=== PATIENT | female | born 1940 | race Caucasian/White ===

== ENCOUNTER → 2017-02-19 | Outpatient (CLI) | payer MEDICARE ==
--- NOTE | 2017-02-21 07:37 | MM ---
Reason for exam: screening (asymptomatic). Last mammogram was performed 1 year ago. History: Patient is postmenopausal. Benign excisional biopsy of the left breast, 1990. Benign excisional biopsy of the left breast, 1989. Physical Findings: A clinical breast exam by your physician is recommended on an annual basis and results should be correlated with mammographic findings. MG 3D Screening Mammo W/Cad Bilateral CC and MLO view(s) were taken. Prior study comparison: February 15, 2016, bilateral MG 3d screening mammo w/cad. There are scattered fibroglandular densities. No significant changes when compared with prior studies. ASSESSMENT: Benign, BI-RAD 2 RECOMMENDATION: Routine screening mammogram of both breasts in 1 year.
== END | disposition home or self-care (01) ==
LOC: RADMAMWWP 12:53
PROVIDERS: ATTEND Internal Medicine
DX: Z12.31 Encounter for screening mammogram for malignant neoplasm of breast (principal)
CPT/HCPCS: 77063; G0202

== ENCOUNTER → 2017-05-22 | Outpatient (CLI) | payer MEDICARE ==
--- NOTE | 2017-05-23 08:56 | SLS ---
76-year-old female, comes again in follow up regarding obstructive sleep apnea. I have diagnosed this patient as having severe KILO with an HI of 79 and she was supposed to be on CPAP pressure of 8 cm of water. She apparently quit using her CPAP machine. She has not been using it as the nose pillow that she has was getting loose and was leaking. She has an AirFit P10 nose pillow and she has not used her CPAP for more than six months. She is an elderly 76-year- old female patient and sometimes she is having difficulties in putting the CPAP machine on and off. She has become symptomatic. She is sleepy and she is interested in going back on the treatment. She has not seen the full benefit of the treatment knowing that the patient has not been using it on a daily basis. BP is 114/76, pulse 78, respirations 12, temperature 98.1, saturation 99% on room air. Weight 166, height 5'1". Drain score is 11. BMI is 31.3. GENERAL APPEARANCE: Calm, comfortable. HEENT: Short neck, crowding of the posterior oropharynx. No goiter or neck masses. LUNGS: Clear to auscultation. HEART: Heart sounds regular rate and rhythm, normal S1/S2. ABDOMEN: Soft, nontender. No organomegaly. EXTREMITIES: No edema. No cyanosis or clubbing. IMPRESSION: Symptomatic obstructive sleep apnea, AHF 79. Currently not utilizing her CPAP machine for the reasons mentioned above. PLAN: 1. The patient was fitted to an AirFit N10 nasal mask. 2. Importance of treatment was explained especially with her severe disease. 3. Will see her back in a month's time to make sure she is using the CPAP machine and she is doing progress with the treatment. MARLENE
== END | disposition home or self-care (01) ==
LOC: SLEEP 15:37
PROVIDERS: ATTEND Internal Medicine Critical Care Medicine
DX: G47.33 Obstructive sleep apnea (adult) (pediatric) (principal)

== ENCOUNTER → 2018-03-26 | Outpatient (CLI) | payer MEDICARE ==
--- NOTE | 2018-03-26 14:12 | BD ---
EXAMINATION TYPE: Axial Bone Density DATE OF EXAM: 03/26/2018 COMPARISON: Prior DEXA bone scan July 13, 2010 CLINICAL HISTORY: Disorder of bone density per order. Height: 5 FT 3/4 IN Weight: 159 FRAX RISK QUESTIONS: History of Fracture in Adulthood: YES Secondary Osteoporosis: RISK FACTORS HISTORY OF: Postmenopausal woman: AGE 49 Lost more than 2 inches in height since high school: YES Poor Health: FAIR MEDICATIONS: Additional Medications: ACTOS, JANUVIA, MYRBETRIQ, LISINOPRIL, PRILOSEC, SIMVASTATIN, SERTRALINE, MAC RODANTIN,PYRIDAM, PAMELOR,BABY ASPIRIN, Additional History: EXAM MEASUREMENTS: Bone mineral densitometry was performed using the [employer] System. Bone mineral density as measured about the Lumbar spine is: ----- L1-L4(G/cm2): 1.124 T Score Values are as follows: ----- L2: -0.8 ----- L3: -0.6 ----- L4: -0.3 ----- L1-L4: -0.5 Bone mineral density has: INCREASED 3.6 % since study of: 2009 Bone mineral density about the R hip (g/cm2): 0.780 Bone mineral density about the L hip (g/cm2): 0.757 T Score values are as follows: -----R Neck: -1.9 -----L Neck: -2.0 -----R Total: -2.7 -----L Total: -2.1 Bone mineral density has: DECREASED -22.5 % since study of: 2009 IMPRESSION: Osteoporosis (T Score less than -2.5) is now present overall in right hip. Bone density significantly decreased in both hips from prior. Bone density felt falsely elevated in the low back due to reactiv e sclerosis. There is increased fracture risk and therapy is usually indicated based on age. Re-Screen 1-2 years. NOTE: T-SCORE=SD OF THE YOUNG ADULT MEAN.
--- NOTE | 2018-03-28 10:29 | MM ---
Reason for exam: screening (asymptomatic). Last mammogram was performed 1 year and 1 month ago. History: Patient is postmenopausal. Benign excisional biopsy of the left breast, 1990. Benign excisional biopsy of the left breast, 1989. Physical Findings: A clinical breast exam by your physician is recommended on an annual basis and results should be correlated with mammographic findings. MG 3D Screening Mammo W/Cad Bilateral CC and MLO view(s) were taken. Prior study comparison: February 19, 2017, bilateral MG 3d screening mammo w/cad. February 15, 2016, bilateral MG 3d screening mammo w/cad. There are scattered fibroglandular densities. No significant changes when compared with prior studies. ASSESSMENT: Negative, BI-RAD 1 RECOMMENDATION: Routine screening mammogram of both breasts in 1 year.
== END ==
LOC: RADMAMWWP 10:02
PROVIDERS: ATTEND Internal Medicine
DX: Z12.31 Encounter for screening mammogram for malignant neoplasm of breast (principal); M81.0 Age-related osteoporosis without current pathological fracture
CPT/HCPCS: 77063; 77067; 77080

== ENCOUNTER → 2019-04-24 | Outpatient (CLI) | payer MEDICARE ==
--- NOTE | 2019-04-25 10:53 | MM ---
Reason for exam: screening (asymptomatic). Last mammogram was performed 1 year and 1 month ago. History: Patient is postmenopausal. Benign excisional biopsy of the left breast, 1990. Benign excisional biopsy of the left breast, 1989. Physical Findings: A clinical breast exam by your physician is recommended on an annual basis and results should be correlated with mammographic findings. MG 3D Screening Mammo W/Cad Bilateral CC and MLO view(s) were taken. Prior study comparison: March 26, 2018, bilateral MG 3d screening mammo w/cad. February 19, 2017, bilateral MG 3d screening mammo w/cad. The breast tissue is almost entirely fat. No significant changes when compared with prior studies. ASSESSMENT: Negative, BI-RAD 1 RECOMMENDATION: Routine screening mammogram of both breasts in 1 year.
== END | disposition home or self-care (01) ==
LOC: RADMAMWWP 12:57
PROVIDERS: ATTEND Internal Medicine
DX: Z12.31 Encounter for screening mammogram for malignant neoplasm of breast (principal)
CPT/HCPCS: 77063; 77067

== ENCOUNTER 2019-11-23 11:58 | Emergency (ER) | payer MEDICARE ==
[2019-11-23] MEDS ORDERED: SODIUM CHLORIDE 0.9% 500 ML 500 ML IV ONE (12:03)
--- NOTE | 2019-11-23 12:07 | ED ---
General Adult HPI - General Stated complaint: Altered Mental Status Time Seen by Provider: 11/23/19 11:58 Source: patient, RN notes reviewed, old records reviewed - History of Present Illness Initial comments: This is an 79-year-old female with a past medical history significant for diabetes high blood pressure. Patient states she was at [employer] today doing a reading and she started feeling weak and the words became blurry and she had to sit down on someone else read. According to the friend that came with her symptoms only lasted a few minutes and she was completely back to baseline. EMS stated that the patient's vitals and neurologic evaluation with them was completely normal. Patient states she still feels weak but nothing is blurred at this time she denies any headache she denies any numbness weakness. Patient denies lightheadedness or dizziness. EMS stated her sugar and it was a little high. Patient states she did eat breakfast this point per patient denies any recent fever chills or cough per patient denies any abdominal pain patient denies any nausea vomiting recently. Patient denies any black or bloody stools. - Related Data Home Medications Medication Instructions Recorded Confirmed Aspirin EC [Ecotrin Low Dose] 81 mg PO DAILY 11/23/19 11/23/19 Lisinopril [Prinivil] 10 mg PO DAILY 11/23/19 11/23/19 Mirabegron [Myrbetriq] 50 mg PO DAILY 11/23/19 11/23/19 Multivit-Min/Iron/Folic/Lutein 1 tab PO HS 11/23/19 11/23/19 [Centrum Silver Women Tablet] Nitrofurantoin Macrocrystal 50 mg PO HS 11/23/19 11/23/19 [Macrodantin] Nortriptyline HCl [Pamelor] 10 mg PO HS 11/23/19 11/23/19 Omeprazole [PriLOSEC] 20 mg PO DAILY 11/23/19 11/23/19 Phenazopyridine HCl [Pyridium] 100 mg PO HS 11/23/19 11/23/19 Pioglitazone [Actos] 15 mg PO DAILY 11/23/19 11/23/19 Sertraline [Zoloft] 50 mg PO HS 11/23/19 11/23/19 Simvastatin [Zocor] 40 mg PO HS 11/23/19 11/23/19 metFORMIN HCL ER [Glucophage Xr] 1,000 mg PO DAILY@1600 11/23/19 11/23/19 sitaGLIPtin PHOSPHATE [Januvia] 100 mg PO DAILY 11/23/19 11/23/19 Allergies Allergy/AdvReac Type Severity Reaction Status Date / Time No Known Allergies Allergy Verified 11/23/19 14:27 Review of Systems ROS Statement: Those systems with pertinent positive or pertinent negative responses have been documented in the HPI. ROS Other: All systems not noted in ROS Statement are negative. General Exam - General Exam Comments Initial Comments: GENERAL: Patient is well-developed and well-nourished. Patient is nontoxic and well-hydrated and is in mild distress. ENT: Neck is soft and supple. No significant lymphadenopathy is noted. Oropharynx is clear. Moist mucous membranes. Neck has full range of motion without eliciting any pain. EYES: The sclera were anicteric and conjunctiva were pink and moist. Extraocular movements were intact and pupils were equal round and reactive to light. Eyelids were unremarkable. PULMONARY: Unlabored respirations. Good breath sounds bilaterally. No audible rales rhonchi or wheezing was noted. CARDIOVASCULAR: There is a regular rate and rhythm without any murmurs gallops or rubs. ABDOMEN: Soft and nontender with normal bowel sounds. SKIN: Skin is clear with no lesions or rashes and otherwise unremarkable. NEUROLOGIC: Patient is alert and oriented x3. Cranial nerves II through XII are grossly intact. Motor and sensory are also intact. Normal speech, volume and content. Symmetrical smile. MUSCULOSKELETAL: Normal extremities with adequate strength and full range of motion. No lower extremity swelling or edema. No calf tenderness. LYMPHATICS: No significant lymphadenopathy is noted PSYCHIATRIC: Normal psychiatric evaluation. Course Vital Signs 11/23/19 11/23/19 11/23/19 12:03 13:11 13:53 Temperature 97.9 F Pulse Rate 68 72 Pulse Rate [ 70 Right Sitting Pulse Oximetery ] Pulse Rate [ 76 Right Standing Pulse Oximetery ] Pulse Rate [ 66 Right Supine Pulse Oximetery ] Respiratory 16 18 18 Rate Blood Pressure 125/54 144/60 Blood Pressure 147/66 [Right Arm Sitting] Blood Pressure 129/66 [Right Arm Standing] Blood Pressure 154/61 [Right Arm Supine] O2 Sat by Pulse 99 99 Oximetry 11/23/19 15:02 Temperature 97.3 F L Pulse Rate 77 Pulse Rate [ Right Sitting Pulse Oximetery ] Pulse Rate [ Right Standing Pulse Oximetery ] Pulse Rate [ Right Supine Pulse Oximetery ] Respiratory 16 Rate Blood Pressure 185/67 Blood Pressure [Right Arm Sitting] Blood Pressure [Right Arm Standing] Blood Pressure [Right Arm Supine] O2 Sat by Pulse 100 Oximetry Medical Decision Making - Medical Decision Making EKG shows normal sinus rhythm at 66 bpm NM interval is on a 68 QRSs 84 QT inte rval 32 QTC is 400. Patient's EKG shows no ST segment elevation or depression. Patient was orthostatic in the emergency department patient received 0.9 normal saline bolus of a liter. He was ambulated after that and felt much better. She no longer any symptoms. - Lab Data Result diagrams: 11/23/19 12:29 11/23/19 12:29 Lab Results 11/23/19 11/23/19 11/23/19 Range/Units 12:29 12: 12:29 WBC 4.8 (3.8-10.6) k/uL RBC 3.36 L (3.80-5.40) m/uL Hgb 10.3 L (11.4-16.0) gm/dL Hct 32.6 L (34.0-46.0) % MCV 97.0 (80.0-100.0) fL MCH 30.6 (25.0-35.0) pg MCHC 31.5 (31.0-37.0) g/dL RDW 12.4 (11.5-15.5) % Plt Count 191 (150-450) k/uL Neutrophils % 71 % Lymphocytes % 19 % Monocytes % 5 % Eosinophils % 3 % Basophils % 0 % Neutrophils # 3.4 (1.3-7.7) k/uL Lymphocytes # 0.9 L (1.0-4.8) k/uL Monocytes # 0.2 (0-1.0) k/uL Eosinophils # 0.2 (0-0.7) k/uL Basophils # 0.0 (0-0.2) k/uL PT 9.6 (9.0-12.0) sec INR 0.9 (<1.2) APTT 22.0 (22.0-30.0) sec Sodium 138 (137-145) mmol/L Potassium 5.0 (3.5-5.1) mmol/L Chloride 105 (98-107) mmol/L Carbon Dioxide 23 (22-30) mmol/L Anion Gap 10 mmol/L BUN 43 H (7-17) mg/dL Creatinine 2.07 H (0.52-1.04) mg/dL Est GFR (CKD-EPI)AfAm 26 (>60 ml/min/1.73 sqM) Est GFR (CKD-EPI)NonAf 22 (>60 ml/min/1.73 sqM) Glucose 105 H (74-99) mg/dL Calcium 9.1 (8.4-10.2) mg/dL Total Bilirubin 0.4 (0.2-1.3) mg/dL AST 29 (14-36) U/L ALT 17 (4-34) U/L Alkaline Phosphatase 105 (38-126) U/L Troponin I (0.000-0.034) ng/mL Total Protein 7.2 (6.3-8.2) g/dL Albumin 4.1 (3.5-5.0) g/dL Urine Color Urine Appearance (Clear) Urine pH (5.0-8.0) Ur Specific [place] (1.001-1.035) Urine Protein (Negative) Urine Glucose (UA) (Negative) Urine Ketones (Negative) Urine Blood (Negative) Urine Nitrite (Negative) Urine Bilirubin (Negative) Urine Urobilinogen (<2.0) mg/dL Ur Leukocyte Esterase (Negative) Urine RBC (0-5) /hpf Urine WBC (0-5) /hpf Ur Squamous Epith Cells (0-4) /hpf Urine Bacteria (None) /hpf Hyaline Casts (0-2) /lpf Urine Mucus (None) /hpf Urine Opiates Screen (NotDetected) Ur Oxycodone Screen (NotDetected) Urine Methadone Screen (NotDetected) Ur Propoxyphene Screen (NotDetected) Ur Barbiturates Screen (NotDetected) U Tricyclic Antidepress (NotDetected) Ur Phencyclidine Scrn (NotDetected) Ur Amphetamines Screen (NotDetected) U Methamphetamines Scrn (NotDetected) U Benzodiazepines Scrn (NotDetected) Urine Cocaine Screen (NotDetected) U Marijuana (THC) Screen (NotDetected) 02/16/20 02/16/20 Range/Units 12:29 13:25 WBC (3.8-10.6) k/uL RBC (3.80-5.40) m/uL Hgb (11.4-16.0) gm/dL Hct (34.0-46.0) % MCV (80.0-100.0) fL MCH (25.0-35.0) pg MCHC (31.0-37.0) g/dL RDW (11.5-15.5) % Plt Count (150-450) k/uL Neutrophils % % Lymphocytes % % Monocytes % % Eosinophils % % Basophils % % Neutrophils # (1.3-7.7) k/uL Lymphocytes # (1.0-4.8) k/uL Monocytes # (0-1.0) k/uL Eosinophils # (0-0.7) k/uL Basophils # (0-0.2) k/uL PT (9.0-12.0) sec INR (<1.2) APTT (22.0-30.0) sec Sodium (137-145) mmol/L Potassium (3.5-5.1) mmol/L Chloride (98-107) mmol/L Carbon Dioxide (22-30) mmol/L Anion Gap mmol/L BUN (7-17) mg/dL Creatinine (0.52-1.04) mg/dL Est GFR (CKD-EPI)AfAm (>60 ml/min/1.73 sqM) Est GFR (CKD-EPI)NonAf (>60 ml/min/1.73 sqM) Glucose (74-99) mg/dL Calcium (8.4-10.2) mg/dL Total Bilirubin (0.2-1.3) mg/dL AST (14-36) U/L ALT (4-34) U/L Alkaline Phosphatase (38-126) U/L Troponin I <0.012 (0.000-0.034) ng/mL Total Protein (6.3-8.2) g/dL Albumin (3.5-5.0) g/dL Urine Color Light Yellow Urine Appearance Clear (Clear) Urine pH 5.0 (5.0-8.0) Ur Specific [place] 1.010 (1.001-1.035) Urine Protein Negative (Negative) Urine Glucose (UA) Negative (Negative) Urine Ketones Negative (Negative) Urine Blood Negative (Negative) Urine Nitrite Negative (Negative) Urine Bilirubin Negative (Negative) Urine Urobilinogen <2.0 (<2.0) mg/dL Ur Leukocyte Esterase Large (Negative) Urine RBC 1 (0-5) /hpf Urine WBC 16 H (0-5) /hpf Ur Squamous Epith Cells 3 (0-4) /hpf Urine Bacteria Rare H (None) /hpf Hyaline Casts 6 H (0-2) /lpf Urine Mucus Rare H (None) /hpf Urine Opiates Screen Detected H (NotDetected) Ur Oxycodone Screen Not Detected (NotDetected) Urine Methadone Screen Not Detected (NotDetected) Ur Propoxyphene Screen Not Detected (NotDetected) Ur Barbiturates Screen Not Detected (NotDetected) U Tricyclic Antidepress Detected H (NotDetected) Ur Phencyclidine Scrn Not Detected (NotDetected) Ur Amphetamines Screen Not Detected (NotDetected) U Methamphetamines Scrn Not Detected (NotDetected) U Benzodiazepines Scrn Not Detected (NotDetected) Urine Cocaine Screen Not Detected (NotDetected) U Marijuana (THC) Screen Not Detected (NotDetected) Disposition Clinical Impression: Dehydration, Orthostatic hypotension Disposition: HOME SELF-CARE Instructions (If sedation given, give patient instructions): Hypotension (ED) Is patient prescribed a controlled substance at d/c from ED?: No Referrals: Pollo Giron MD [Primary Care Provider] - 1-2 days Time of Disposition: 14:32
[2019-11-23 12:38] LABS: Basophils % (A) 0 %; Eosinophils # (A) 0.2 k/uL (0-0.7); Eosinophils % (A) 3 %; HCT 32.6 % (34.0-46.0); HGB 10.3 gm/dL (11.4-16.0); Lymphocytes # (A) 0.9 k/uL (1.0-4.8); Lymphocytes % (A) 19 %; MCH 30.6 pg (25.0-35.0); MCHC 31.5 g/dL (31.0-37.0); Mean Platelet Volume 8.2; Monocytes # (A) 0.2 k/uL (0-1.0); Monocytes % (A) 5 %; Neutrophils # (A) 3.4 k/uL (1.3-7.7); Neutrophils % (A) 71 %; Platelet Count 191 k/uL (150-450); RBC 3.36 m/uL (3.80-5.40); RDW 12.4 % (11.5-15.5); WBC 4.8 k/uL (3.8-10.6)
[2019-11-23 12:51] LABS: Albumin 4.1 g/dL (3.5-5.0); Calcium 9.1 mg/dL (8.4-10.2); Total Bilirubin 0.4 mg/dL (0.2-1.3); Total Protein 7.2 g/dL (6.3-8.2)
[2019-11-23 12:54] LABS: INR 0.9 (<1.2); Prothrombin Time 9.6 sec (9.0-12.0)
--- NOTE | 2019-11-23 13:23 | CT ---
EXAMINATION TYPE: CT brain wo con DATE OF EXAM: 11/23/2019 COMPARISON: NONE HISTORY: altered mental status CT DLP: 1099.4 mGycm Automated exposure control for dose reduction was used. FINDINGS: There are generalized changes of sulcal prominence and ventriculomegaly compatible with atrophic garcia ge. There is diffuse periventricular white matter lucency, compatible with chronic white matter ische velma change. There is no acute focal lesion, mass effect or midline shift identified. I do not see yg dence of intracranial blood. Visualized portions of the paranasal sinuses and mastoids are clear. The bony calvarium is intact. IMPRESSION: 1. NO ACUTE INTRACRANIAL ABNORMALITY. 2. MILD DEGENERATIVE CHANGE.
--- NOTE | 2019-11-23 13:31 | XR ---
EXAMINATION TYPE: XR chest 2V DATE OF EXAM: 11/23/2019 HISTORY: altered mental status. REFERENCE: NONE. FINDINGS: The lungs are clear. Pleural spaces are clear. The heart is not enlarged. IMPRESSION: NO ACTIVE INTRATHORACIC DISEASE.
[2019-11-23] MEDS ORDERED: SODIUM CHLORIDE 0.9% 1,000 ML IV STA (13:34)
[2019-11-23 14:09] LABS: Bacteria,Urine Rare /hpf; Hyaline Casts,Urine 6 /lpf (0-2); Mucus,Urine Rare /hpf; RBC,Urine 1 /hpf (0-5); Squamous Epithelial Cell,Urine 3 /hpf (0-4); WBC,Urine 16 /hpf (0-5)
[2019-11-23 14:14] LABS: Appearance,Urine Clear (Clear); Bilirubin,Urine Negative (Negative); Blood,Urine Negative (Negative); Color,Urine Light Yellow; Glucose,Urine (UA) Negative (Negative); Ketones,Urine Negative (Negative); Leukocyte Esterase,Urine Large (Negative); Nitrite,Urine Negative (Negative); Protein,Urine Negative (Negative); Urobilinogen,Urine <2.0 mg/dL (<2.0)
[2019-11-23 14:22] LABS: Amphetamine Screen,Urine Not Detected (NotDetected); Barbiturate Screen,Urine Not Detected (NotDetected); Benzodiazepines Screen,Urine Not Detected (NotDetected); Cocaine Screen,Urine Not Detected (NotDetected); Methadone Screen, Urine Not Detected (NotDetected); Opiate Screen,Urine Detected (NotDetected); Oxycodone Screen, Urine Not Detected (NotDetected); Phencyclidine Screen,Urine Not Detected (NotDetected); Tricyclic Antidepressant,Urine Detected (NotDetected); Urn Cannabinoid Scrn Not Detected (NotDetected)
[2019-11-23 15:10] VITALS: BP 185/67; PULSE 77; RESP 16; TEMP 97.3
== END 2019-11-23 15:11 | disposition home or self-care (01) ==
LOC: EC 11:58
DX: I95.1 Orthostatic hypotension (principal); E86.0 Dehydration; E11.9 Type 2 diabetes mellitus without complications; I10 Essential (primary) hypertension; Z79.84 Long term (current) use of oral hypoglycemic drugs; Z79.899 Other long term (current) drug therapy; Z79.82 Long term (current) use of aspirin
CPT/HCPCS: 36415; 70450; 71046; 80053; 80306; 81001; 84484; 85025; 85610; 85730; 87086; 93005; 96360; 96361; 99285

== ENCOUNTER → 2020-05-21 | Outpatient (CLI) | payer MEDICARE ==
--- NOTE | 2020-05-25 08:49 | MM ---
Reason for exam: screening (asymptomatic). Last mammogram was performed 1 year and 1 month ago. History: Patient is postmenopausal. Benign excisional biopsy of the left breast, 1990. Benign excisional biopsy of the left breast, 1989. Physical Findings: A clinical breast exam by your physician is recommended on an annual basis and results should be correlated with mammographic findings. MG 3D Screening Mammo W/Cad Bilateral CC and MLO view(s) were taken. Prior study comparison: April 24, 2019, bilateral MG 3d screening mammo w/cad. March 26, 2018, bilateral MG 3d screening mammo w/cad. There are scattered fibroglandular densities. Faint bilateral vascular calcifications. No significant changes when compared with prior studies. ASSESSMENT: Negative, BI-RAD 1 RECOMMENDATION: Routine screening mammogram of both breasts in 1 year.
== END | disposition home or self-care (01) ==
LOC: RADMAMWWP 13:55
PROVIDERS: ATTEND Internal Medicine
DX: Z12.31 Encounter for screening mammogram for malignant neoplasm of breast (principal)
CPT/HCPCS: 77063; 77067

== ENCOUNTER → 2020-07-27 | Outpatient (CLI) | payer MEDICARE ==
--- NOTE | 2020-07-27 16:00 | BD ---
EXAMINATION TYPE: Axial Bone Density DATE OF EXAM: 07/27/2020 COMPARISON: 03.26.2018 CLINICAL HISTORY: 79 YR OLD FEMALE.....ICD-10 CODE: M89.9 DISORDER OF BONE Height: 60 Weight: 136 FRAX RISK QUESTIONS: History of Fracture in Adulthood: YES RISK FACTORS HISTORY OF: HX OF KNEE AND SHOULDER AND ANKLE FRACTURES, SINCE AGE OF 49 Diet low in dairy products/other sources of calcium: YES A BIT SHORT Postmenopausal woman: YES, AT AGE 49 Take estrogen and/or progesterone medications: YES FOR SHORT WHILE Lost more than 2 inches in height since high school: YES Frequent falls: ELDERLY Hyperparathyroidism: NO Adrenal Insufficiency: NO MEDICATIONS: Additional Medications: BP MEDS, ANTI DEPRESSANT, ORAL MEDS FOR DIABETES, REFLUX MEDS, CHOLESTEROL ME DS, MULTIVITAMIN CENTRUM Additional History: HYPERTENSION, DIABETIC, REFLUX CHOLESTEROL, ARTHRITIS EXAM MEASUREMENTS: Bone mineral densitometry was performed using the [employer] System. Bone mineral density as measured about the Lumbar spine is: ----- L1-L4(G/cm2): 1.113 T Score Values are as follows: ----- L1: -0.7 ----- L2: -1.3 ----- L3: -0.3 ----- L4: -0.1 ----- L1-L4: -0.6 Bone mineral density has: Decreased -0.2% since study of: 03.26.2018 Bone mineral density about the R hip (g/cm2): 0.616 Bone mineral density about the L hip (g/cm2): 0.601 T Score values are as follows: -----R Neck: -2.2 -----L Neck: 2.8 -----R Total: -3.1 -----L Total: -3.2 Bone mineral density has: Decreased -13.8% since study of: 03.26.2018 FRAX%s; THERE IS A 30.5% CHANCE FOR A MAJOR OSTEOPOROTIC FX AND A 11.0% FOR HIP......PROBABILITY FO R FX IN 10 YRS TIME IMPRESSION: Osteoporosis (T Score less than -2.5). There is increased fracture risk and therapy is usually indicated based on age. Re-Screen 1-2 years. NOTE: T-SCORE=SD OF THE YOUNG ADULT MEAN.
== END | disposition home or self-care (01) ==
LOC: RADBDWWP 12:25
PROVIDERS: ATTEND Internal Medicine
DX: M81.0 Age-related osteoporosis without current pathological fracture (principal)
CPT/HCPCS: 77080

== ENCOUNTER → 2021-01-17 | Outpatient (CLI) | payer MEDICARE ==
--- NOTE | 2021-01-17 14:35 | US ---
EXAMINATION TYPE: US kidneys/renal and bladder DATE OF EXAM: 01/17/2021 COMPARISON: NONE CLINICAL HISTORY: N18.31 Chronic kidney disease, stage 3a. Diabetic. EXAM MEASUREMENTS: Right Kidney: 8.8 x 4.6 x 3.9 cm Left Kidney: 9.2 x 4.4 x 4.1 cm Post Void Residual Volume: 33.9 mL Right Kidney: multiple small cortical cysts seen with largest at lower pole = 0.8 x 0.9 x 0.9cm. Left Kidney: thin cortex = 0.6cm; multiple small cysts seen with largest at lower cortex = 1.0 x 1.1 x 0.9cm; dilated renal pelvis is noted = 2.0cm A/P. Bladder: wnl Bilateral Jets seen: no, only small left ureteral jet was seen within 3 minute observation Normal Post Void Residual: yes Urinary bladder not greatly distended without intraluminal mass or wall thickening. Bilateral distal ureter just not seen. After voiding small amount of residual urine. Cortical thinning and increased cortical echogenicity and both kidneys with subcentimeter thin-walled cysts bilaterally. Fullness left renal pelvis without calyceal dilatation. Findings favor extrarenal pelvis. No right-sided hydronephrosis. IMPRESSION: Evidence of chronic medical renal disease bilaterally. No definitive hydronephrosis seen bilaterally.
== END | disposition home or self-care (01) ==
LOC: RADUSWWP 09:55
PROVIDERS: ATTEND Internal Medicine Geriatric Medicine
DX: N18.31 Chronic kidney disease, stage 3a (principal)
CPT/HCPCS: 76770

== ENCOUNTER 2021-03-20 11:28 | Emergency (ER) | payer MEDICARE ==
[2021-03-20 11:44] VITALS: BP 136/59; PULSE 64; RESP 18; TEMP 98.9
[2021-03-20] MEDS ORDERED: SODIUM CHLORIDE 0.9% 1,000 ML IV STA (11:48)
[2021-03-20 12:14] LABS: Basophils % (A) 1 %; Eosinophils # (A) 0.2 k/uL (0-0.7); Eosinophils % (A) 3 %; HCT 30.9 % (34.0-46.0); Lymphocytes % (A) 17 %; MCH 30.6 pg (25.0-35.0); MCHC 32.3 g/dL (31.0-37.0); MCV 94.5 fL (80.0-100.0); Mean Platelet Volume 8.1; Monocytes # (A) 0.3 k/uL (0-1.0); Monocytes % (A) 4 %; Neutrophils # (A) 4.4 k/uL (1.3-7.7); Neutrophils % (A) 74 %; Platelet Count 168 k/uL (150-450); RBC 3.27 m/uL (3.80-5.40); RDW 13.4 % (11.5-15.5); WBC 5.9 k/uL (3.8-10.6)
[2021-03-20 12:23] LABS: INR 0.9 (<1.2); Partial Thromboplastin Time 22.4 sec (22.0-30.0); Prothrombin Time 10.2 sec (9.0-12.0)
[2021-03-20 12:24] LABS: Albumin 3.4 g/dL (3.5-5.0); Calcium 8.3 mg/dL (8.4-10.2); Potassium 4.5 mmol/L (3.5-5.1); Total Bilirubin 0.2 mg/dL (0.2-1.3); Total Protein 5.9 g/dL (6.3-8.2)
--- NOTE | 2021-03-20 13:07 | XR ---
EXAMINATION TYPE: XR chest 2V DATE OF EXAM: 03/20/2021 COMPARISON: 11/23/2019 HISTORY: 80-year-old female syncope TECHNIQUE: AP and lateral views FINDINGS: The heart is upper limits of normal in size. Mild interstitial prominence. Hyperinflation. No henrry c onsolidation or pleural effusion. IMPRESSION: Borderline heart size. COPD. No definite acute process.
--- NOTE | 2021-03-20 13:10 | ED ---
General Adult HPI - General Chief complaint: Syncope Stated complaint: Syncope Time Seen by Provider: 03/20/21 11:37 Source: patient, EMS Mode of arrival: EMS - History of Present Illness Initial comments: 80-year-old female with a past medical history diabetes mellitus, vertigo presents to the emergency room for a chief complaint of syncopal episode. Patient and EMS report that the christianity she was in was very hot. Patient states she was standing up reading a passage for a long time and started to feel lightheaded. Patient reports that she kept getting hotter and could feel herself about to pass out. Patient did have a syncopal episode. She did not have any chest pain or shortness of breath preceding this. Patient does not take blood thinners. She does not believe she hit her head and does not have a headache or confusion. She denies any injury.Patient has no other complaints at this time including shortness of breath, chest pain, abdominal pain, nausea or vomiting, headache, or visual changes. - Related Data Home Medications Medication Instructions Recorded Confirmed Aspirin EC [Ecotrin Low Dose] 81 mg PO DAILY 11/23/19 11/23/19 Lisinopril [Prinivil] 10 mg PO DAILY 11/23/19 11/23/19 Mirabegron [Myrbetriq] 50 mg PO DAILY 11/23/19 11/23/19 Multivit-Min/Iron/Folic/Lutein 1 tab PO HS 11/23/19 11/23/19 [Centrum Silver Women Tablet] Nitrofurantoin Macrocrystal 50 mg PO HS 11/23/19 11/23/19 [Macrodantin] Nortriptyline HCl [Pamelor] 10 mg PO HS 11/23/19 11/23/19 Omeprazole [PriLOSEC] 20 mg PO DAILY 11/23/19 11/23/19 Phenazopyridine HCl [Pyridium] 100 mg PO HS 11/23/19 11/23/19 Pioglitazone [Actos] 15 mg PO DAILY 11/23/19 11/23/19 Sertraline [Zoloft] 50 mg PO HS 11/23/19 11/23/19 Simvastatin [Zocor] 40 mg PO HS 11/23/19 11/23/19 metFORMIN HCL ER [Glucophage Xr] 1,000 mg PO DAILY@1600 11/23/19 11/23/19 sitaGLIPtin PHOSPHATE [Januvia] 100 mg PO DAILY 11/23/19 11/23/19 Allergies Allergy/AdvReac Type Severity Reaction Status Date / Time No Known Allergies Allergy Verified 11/23/19 14:27 Review of Systems ROS Statement: Those systems with pertinent positive or pertinent negative responses have been documented in the HPI. ROS Other: All systems not noted in ROS Statement are negative. Past Medical History Past Medical History: Diabetes Mellitus, Osteoarthritis (OA) Additional Past Medical History / Comment(s): virtigo History of Any Multi-Drug Resistant Organisms: None Reported Past Surgical History: Orthopedic Surgery Additional Past Surgical History / Comment(s): eye surgery. Smoking Status: Former smoker Past Alcohol Use History: Occasional Past Drug Use History: None Reported General Exam General appearance: alert, in no apparent distress Head exam: Present: atraumatic, normocephalic, normal inspection Eye exam: Present: normal appearance ENT exam: Present: normal exam, mucous membranes moist Neck exam: Present: normal inspection, full ROM. Absent: tenderness, meningismus, lymphadenopathy Respiratory exam: Present: normal lung sounds bilaterally. Absent: respiratory distress, wheezes, rales, rhonchi, stridor Cardiovascular Exam: Present: regular rate, normal rhythm, normal heart sounds. Absent: systolic murmur, diastolic murmur, rubs, gallop, clicks GI/Abdominal exam: Present: soft, normal bowel sounds. Absent: distended, tenderness, guarding, rebound, rigid Neurological exam: Present: alert, normal gait Course Vital Signs 03/20/21 11:37 Temperature 98.9 F Pulse Rate 64 Respiratory 18 Rate Blood Pressure 136/59 O2 Sat by Pulse 99 Oximetry EKG Findings - EKG Comments: EKG Findings:: Normal sinus rhythm, ventricular rate 62, DE interval 172, QTc 416 Medical Decision Making - Medical Decision Making Vitals are stable. CBC CMP unremarkable. Chronic kidney disease is noted. EKG nonischemic. Troponin negative. Chest x-ray shows COPD. No definite acute process. Borderline heart size. Patient is at baseline here in the emergency room. She is ambulating to the bathroom without difficulty. Patient likely had a vasovagal syncope given situation is standing and heat in front of a christianity full people and experiencing symptoms of lightheadedness preceding the syncopal episode. Patient will be discharged home to follow up closely with her primary care doctor. She will return here for any worsening symptoms. - Lab Data Result diagrams: 03/20/21 12:02 03/20/21 12:02 Lab Results 03/20/21 03/20/21 03/20/21 Range/Units 12:02 12:02 12:02 WBC 5.9 (3.8-10.6) k/uL RBC 3.27 L (3.80-5.40) m/uL Hgb 10.0 L (11.4-16.0) gm/dL Hct 30.9 L (34.0-46.0) % MCV 94.5 (80.0-100.0) fL MCH 30.6 (25.0-35.0) pg MCHC 32.3 (31.0-37.0) g/dL RDW 13.4 (11.5-15.5) % Plt Count 168 (150-450) k/uL MPV 8.1 Neutrophils % 74 % Lymphocytes % 17 % Monocytes % 4 % Eosinophils % 3 % Basophils % 1 % Neutrophils # 4.4 (1.3-7.7) k/uL Lymphocytes # 1.0 (1.0-4.8) k/uL Monocytes # 0.3 (0-1.0) k/uL Eosinophils # 0.2 (0-0.7) k/uL Basophils # 0.0 (0-0.2) k/uL PT 10.2 (9.0-12.0) sec INR 0.9 (<1.2) APTT 22.4 (22.0-30.0) sec Sodium 140 (137-145) mmol/L Potassium 4.5 (3.5-5.1) mmol/L Chloride 111 H (98-107) mmol/L Carbon Dioxide 22 (22-30) mmol/L Anion Gap 7 mmol/L BUN 49 H (7-17) mg/dL Creatinine 1.84 H (0.52-1.04) mg/dL Est GFR (CKD-EPI)AfAm 29 (>60 ml/min/1.73 sqM) Est GFR (CKD-EPI)NonAf 25 (>60 ml/min/1.73 sqM) Glucose 112 H (74-99) mg/dL Calcium 8.3 L (8.4-10.2) mg/dL Magnesium 2.0 (1.6-2.3) mg/dL Total Bilirubin 0.2 (0.2-1.3) mg/dL AST 25 (14-36) U/L ALT 13 (4-34) U/L Alkaline Phosphatase 69 (38-126) U/L Troponin I (0.000-0.034) ng/mL Total Protein 5.9 L (6.3-8.2) g/dL Albumin 3.4 L (3.5-5.0) g/dL 03/20/21 Range/Units 12:02 WBC (3.8-10.6) k/uL RBC (3.80-5.40) m/uL Hgb (11.4-16.0) gm/dL Hct (34.0-46.0) % MCV (80.0-100.0) fL MCH (25.0-35.0) pg MCHC (31.0-37.0) g/dL RDW (11.5-15.5) % Plt Count (150-450) k/uL MPV Neutrophils % % Lymphocytes % % Monocytes % % Eosinophils % % Basophils % % Neutrophils # (1.3-7.7) k/uL Lymphocytes # (1.0-4.8) k/uL Monocytes # (0-1.0) k/uL Eosinophils # (0-0.7) k/uL Basophils # (0-0.2) k/uL PT (9.0-12.0) sec INR (<1.2) APTT (22.0-30.0) sec Sodium (137-145) mmol/L Potassium (3.5-5.1) mmol/L Chloride (98-107) mmol/L Carbon Dioxide (22-30) mmol/L Anion Gap mmol/L BUN (7-17) mg/dL Creatinine (0.52-1.04) mg/dL Est GFR (CKD-EPI)AfAm (>60 ml/min/1.73 sqM) Est GFR (CKD-EPI)NonAf (>60 ml/min/1.73 sqM) Glucose (74-99) mg/dL Calcium (8.4-10.2) mg/dL Magnesium (1.6-2.3) mg/dL Total Bilirubin (0.2-1.3) mg/dL AST (14-36) U/L ALT (4-34) U/L Alkaline Phosphatase (38-126) U/L Troponin I <0.012 (0.000-0.034) ng/mL Total Protein (6.3-8.2) g/dL Albumin (3.5-5.0) g/dL Disposition Clinical Impression: Vasovagal syncope Disposition: HOME SELF-CARE Condition: Good Instructions (If sedation given, give patient instructions): Syncope (ED) Additional Instructions: Please follow up with primary care. Return to the emergency room for any worsening symptoms. Is patient prescribed a controlled substance at d/c from ED?: No Referrals: Shlomo Valerio MD [Primary Care Provider] - 1-2 days Time of Disposition: 13:25
== END 2021-03-20 13:49 | disposition home or self-care (01) ==
LOC: EC 11:28
DX: R55 Syncope and collapse (principal); E11.22 Type 2 diabetes mellitus with diabetic chronic kidney disease; N18.9 Chronic kidney disease, unspecified; J44.9 Chronic obstructive pulmonary disease, unspecified; M19.90 Unspecified osteoarthritis, unspecified site; Z87.891 Personal history of nicotine dependence; Z79.84 Long term (current) use of oral hypoglycemic drugs; Z79.82 Long term (current) use of aspirin
CPT/HCPCS: 36415; 71046; 80053; 83735; 84484; 85025; 85610; 85730; 93005; 96360; 99284

== ENCOUNTER → 2022-01-09 | Outpatient (CLI) | payer MEDICARE ==
--- NOTE | 2022-01-09 12:05 | MM ---
Reason for exam: clinical finding. Last mammogram was performed 1 year and 8 months ago. History: Patient is postmenopausal. Benign excisional biopsy of the left breast, 1990. Benign excisional biopsy of the left breast, 1989. Indicated problem(s): lump or thickening in the right breast. Physical Findings: A clinical breast exam by your physician is recommended on an annual basis and results should be correlated with mammographic findings. MG 3D Diag Mammo W/Cad BALTAZAR Bilateral CC and MLO view(s) were taken. Prior study comparison: May 21, 2020, bilateral MG 3d screening mammo w/cad. April 24, 2019, bilateral MG 3d screening mammo w/cad. There are scattered fibroglandular densities. New 2.3cm oval mass 9 o'clock right breast. Overlying palpable marker. Mass has associated calcifications. No other solid or cystic lesions. ASSESSMENT: Incomplete: need additional imaging evaluation, BI-RAD 0 RECOMMENDATION: Ultrasound of the right breast.
--- NOTE | 2022-01-09 12:08 | USB ---
Reason for exam: additional evaluation requested from abnormal screening. History: Patient is postmenopausal. Benign excisional biopsy of the left breast, 1990. Benign excisional biopsy of the left breast, 1989. US Breast RT Technologist: Alana Trivedi Right complete breast ultrasound includes all four quadrants, the retroareolar region and axilla. Finding demonstrates a 1.6 x 1.8 x 1.7cm spiculated, solid, vascular lesion at 9 o'clock 6cm from nipple, biopsy recommended. ASSESSMENT: Highly suggestive of malignancy, BI-RAD 5 RECOMMENDATION: Ultrasound core biopsy of the right breast. Called Dr. Valerio's office with mammographic findings and has scheduled an appointment for the patient for 02/02/22 at 12:[address] Smith. Biopsy scheduled for 01/23/22 at 12:30. PRELIMINARY REPORT CALLED AND FAXED TO DR. SMITH ON 01/09/22.
== END | disposition home or self-care (01) ==
LOC: RADMAMWWP 09:24
PROVIDERS: ATTEND Internal Medicine
DX: N63.11 Unspecified lump in the right breast, upper outer quadrant (principal); Z78.0 Asymptomatic menopausal state
CPT/HCPCS: 77066; 76641; G0279; 77062

== ENCOUNTER → 2022-02-02 | Outpatient (CLI) | payer MEDICARE ==
--- NOTE | 2022-02-02 13:08 | P.GSHP ---
History of Present Illness H&P Date: 02/02/22 Chief Complaint: abnormal right breast mammogram and ultrasound Sylwia is an 81 year old white female seen in consultation for DR. Valerio with an abnormal right breast mammogram and ultrasound. The patient had a bilateral mammogram on 01-09-22. This revealed a lesion in the right breast and an ultrasound was done on the same date. This showed a 1.8 cm spiculated mass at 9 O'Clock for which biopsy was recommended. She is able to feel a mass in her right breast for a month. Her last mammogram prior to this one was 05-25-20, this was negative BIRAD 1. She is not complaining of any nipple discharge or skin changes. She has had a left breast biopsy in the past with "needles" which showed no cancer. She feel recently and hit her right breast, and thinks the lump started after that. Caffiene: occasional nicotine: none BCP: 25 years, has not used them for many years hormones: none chocolate: daily Family History: negative for cancer Hormonal History: menarche: 11 , breast fed; no, age at first :23 menopause: 49 BCP: 20 years Surgical History: right knee right ankle toe amputation Medical History: uses a cane to walk diabetic osteoarthritis vertigo Social History: smoke: none alcohol: none drugs: none - Constitutional Constitutional: Denies chills, Denies fever - EENT Comment: eye surgery, not known what for; gets shots in eye only in the left eye Ears: bilateral: decreased hearing (uses hearing aids) Ears, nose, mouth and throat: Reports headache, Denies sore throat - Breasts Breasts: bilateral: as per HPI - Cardiovascular Cardiovascular: Denies chest pain, Denies shortness of breath - Respiratory Respiratory: Denies cough, Denies 7 - Gastrointestinal Comment: GERD - Genitourinary (Female) Genitourinary: Denies dysuria, Denies hematuria - Menstruation Menstruation: Reports postmenopausal - Musculoskeletal Comment: osteoarthritis - Integumentary Integumentary: Reports pruritus - Neurological Comment: poor balance - Psychiatric Psychiatric: Denies anxiety, Denies depression - Endocrine Comment: diabetic - Hematologic/Lymphatic Comment: uses aspirin - Allergic/Immunologic Allergic/Immunologic: Reports as per HPI, Reports seasonal allergies Past Medical History Past Medical History: Diabetes Mellitus, Osteoarthritis (OA) Additional Past Medical History / Comment(s): virtigo History of Any Multi-Drug Resistant Organisms: None Reported Past Surgical History: Orthopedic Surgery Additional Past Surgical History / Comment(s): eye surgery. Past Psychological History: No Psychological Hx Reported Smoking Status: Never smoker Past Alcohol Use History: Occasional Past Drug Use History: None Reported Medications and Allergies Home Medications Medication Instructions Recorded Confirmed Type Aspirin EC [Ecotrin Low Dose] 81 mg PO DAILY 11/23/19 01/13/22 History Pioglitazone [Actos] 15 mg PO DAILY 11/23/19 01/13/22 History Sertraline [Zoloft] 50 mg PO HS 11/23/19 01/13/22 History Simvastatin [Zocor] 40 mg PO HS 11/23/19 01/13/22 History sitaGLIPtin PHOSPHATE [Januvia] 25 mg PO DAILY 11/23/19 01/13/22 History Cetirizine HCl 10 mg PO DAILY 01/13/22 01/13/22 History Losartan [Cozaar] 25 mg PO DAILY 01/13/22 01/13/22 History Melatonin 3 mg PO HS 01/13/22 01/13/22 History Allergies Allergy/AdvReac Type Severity Reaction Status Date / Time morphine Allergy Hallucinati Verified 02/02/22 12:31 ons Surgical - Exam BMI: 26.5 - General moderate distress - Eyes normal ocular movement - Neck trachea midline - Respiratory normal respiratory effort - Cardiovascular Rhythm: regular Heart Sounds: normal: S1, S2 - Abdomen Abdomen: soft - Integumentary normal turgor - Neurologic no disoriented, no combative - Musculoskeletal uses a cane Breast Exam: BRA: 44D inspection: bialteral grade 3 ptosis palpation: right breast: Approximately 2.5 cm mass right breast added 9 o'clock position, otherwise fibrofatty tissue and no other dominant masses or nodules of concern of multiple positional exam Right axilla: No adenopathy of concern Left breast: Multiple positional exam no dominant masses or notches of concern Left axilla: No adenopathy of concern Results Mammogram personally reviewed, and compared to prior mammogram of 2019 Assessment and Plan Assessment: Impression: Mass right breast/ highly suspecious for cancer Abnormal right breast mammogram and ultrasound Plan: Right breast core biopsy Follow up after core biopsy CC: Dr. Valerio
[2022-02-02 13:36] VITALS: BP 162/65; PULSE 59; RESP 18; TEMP 97.4
== END ==
LOC: WWCWWP 11:54
PROVIDERS: ATTEND Surgery
DX: N63.15 Unspecified lump in the right breast, overlapping quadrants (principal); R92.8 Other abnormal and inconclusive findings on diagnostic imaging of breast; E11.9 Type 2 diabetes mellitus without complications; M19.90 Unspecified osteoarthritis, unspecified site; Z88.5 Allergy status to narcotic agent; Z79.84 Long term (current) use of oral hypoglycemic drugs

== ENCOUNTER → 2022-02-06 | Day surgery (SDC) | payer MEDICARE ==
--- NOTE | 2022-02-06 15:07 | USB ---
EXAMINATION TYPE: US biopsy breast VAD RT, MG diagnostic mammo RT wo CAD DATE OF EXAM: 02/06/2022 CLINICAL HISTORY: R92.8, Abnormal mammogram. TECHNIQUE: Ultrasound guided core biopsy of right 9:00 breast. COMPARISON: NONE FINDINGS: The procedure of ultrasound guided core biopsy was explained to the patient. Benefits, alternatives, and risks were discussed. An informed consent was then obtained. The patient was placed in supine positioning for imaging and for the procedure. The overlying skin was prepped and draped in usual sterile fashion. Lidocaine buffered with bicarbonate was used as anesthetic into the skin and subcutaneous tissue up to area of concern in the right 9:00 breast. A anuj was made with surgical scalpel. Under ultrasound guidance, a 12-gauge vacuum assisted biopsy gun device was used to obtain 4 core samples. Following this, a biopsy clip was left in lesion. The patient tolerated the procedure well without any immediate complication. The patient was kept in the radiology department for short stay after the procedure and then discharged home in stable condition. IMPRESSION: Successful, uncomplicated ultrasound guided core biopsy of area of concern in the right 9:00 breast, full pathology results to follow. Pathology Results: Malignant RIGHT BREAST, 9:00 POSITION, CORE BIOPSY: Invasive high grade ductal carcinoma, Grade 3 (see surgical pathology cancer case summary and comment). Recommendation Surgical consult of the right breast. MARLENE
== END ==
LOC: RADUSWWP 12:07
PROVIDERS: ATTEND Surgery
DX: C50.811 Malignant neoplasm of overlapping sites of right female breast (principal)
CPT/HCPCS: 19083; 88305; 88342; 88341; 77065; A4648

== ENCOUNTER → 2022-02-16 | Outpatient (CLI) | payer MEDICARE ==
[2022-02-16 12:24] VITALS: BP 145/76; PULSE 79; RESP 16; TEMP 98.3
--- NOTE | 2022-02-16 12:45 | P.PN ---
Subjective Progress Note Date: 02/16/22 Principal diagnosis: right breast cancer Sylwia is an 81 year old white female with a right breast [id number] invasive ductal breast cancer. She tolerated the biopsy without difficulty. Objective - Vital Signs Vital signs: Vital Signs Temp 98.3 F 02/16/22 12:21 Pulse 79 02/16/22 12:21 Resp 16 02/16/22 12:21 BP 145/76 02/16/22 12:21 Pulse Ox 95 02/16/22 12:21 Intake & Output 02/15/22 02/16/22 02/16/22 18:59 06:59 18:59 Weight 65.771 kg - Exam BMI 26.5 - Constitutional General appearance: Present: cooperative - EENT Eyes: Present: EOMI ENT: Present: hearing grossly normal - Neck Neck: Present: normal ROM - Respiratory Respiratory: bilateral: CTA - Cardiovascular Rhythm: regular Heart sounds: normal: S1, S2 - Psychiatric Psychiatric: Present: A&O x's 3, appropriate affect, intact judgment & insight - Additional findings Additional findings: Biopsy site clean and dry no Evidence of infection mild ecchymosis Assessment and Plan Assessment: Impression: 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 Valerio
== END ==
LOC: WWCWWP 11:53
PROVIDERS: ATTEND Surgery
DX: Z01.818 Encounter for other preprocedural examination (principal); C50.911 Malignant neoplasm of unspecified site of right female breast; Z17.1 Estrogen receptor negative status [ER-]; M19.90 Unspecified osteoarthritis, unspecified site; E11.9 Type 2 diabetes mellitus without complications; Z88.5 Allergy status to narcotic agent

== ENCOUNTER → 2022-03-24 | Outpatient (CLI) | payer MEDICARE ==
[2022-03-24 11:38] VITALS: BP 153/47; PULSE 63; RESP 18; TEMP 98.2
--- NOTE | 2022-03-24 12:01 | P.PN ---
Subjective Progress Note Date: 03/24/22 Principal diagnosis: Stage IIB invasive ductal carcinoma right breast Sylwia is an 81 year old white female seen in consultation for DR. Valerio with an abnormal right breast mammogram and ultrasound. The patient had a bilateral mammogram on 01-09-22. This revealed a lesion in the right breast and an ultrasound was done on the same date. This showed a 1.8 cm spiculated mass at 9 O'Clock for which biopsy was recommended. She is able to feel a mass in her right breast for a month. Her last mammogram prior to this one was 05-25-20, this was negative BIRAD 1. She was not complaining of any nipple discharge or skin changes. She has had a left breast biopsy in the past with "needles" which showed no cancer. She feel recently and hit her right breast, and thinks the lump started after that. She underwent a right breast core biopsy on 5221. This revealed a grade 3 invasive ductal carcinoma triple negative the lesion size was approximately 1.8 cm and there is no evidence of any sushil involvement. She was seen in consultation by Dr. Teodoro Matias on and he did not recommend neoadjuvant chemotherapy. Adjuvant chemotherapy after surgery is completed may be considered,. The patient was also seen in consultation by Dr. Young Montero from radiation oncology and this note was reviewed as well the lesion is potentially a T2 lesion which would make this is stage IIB cancer. It is felt as per Dr. Montero that she would most likely be recommended to undergo radiation therapy. Her case was presented at tumor board on 5221. Initial discussion with the patient post biopsy the patient wished for lumpectomy rather than mastectomy to be performed. Caffiene: occasional nicotine: none BCP: 25 years, has not used them for many years hormones: none chocolate: daily Family History: negative for cancer Hormonal History: menarche: 11 , breast fed; no, age at first :23 menopause: 49 BCP: 20 years Surgical History: right knee right ankle toe amputation Medical History: uses a cane to walk diabetic osteoarthritis vertigo Social History: smoke: none alcohol: none drugs: none - Constitutional Constitutional: Denies chills, Denies fever - EENT Comment: eye surgery, not known what for; gets shots in eye only in the left eye Ears: bilateral: decreased hearing (uses hearing aids) Ears, nose, mouth and throat: Reports headache, Denies sore throat - Breasts Breasts: bilateral: as per HPI - Cardiovascular Cardiovascular: Denies chest pain, Denies shortness of breath - Respiratory Respiratory: Denies cough - Gastrointestinal Comment: GERD - Genitourinary (Female) Genitourinary: Denies dysuria, Denies hematuria - Menstruation Menstruation: Reports postmenopausal - Musculoskeletal Comment: osteoarthritis - Integumentary Integumentary: Reports pruritus - Neurological Comment: poor balance - Psychiatric Psychiatric: Denies anxiety, Denies depression - Endocrine Comment: diabetic - Hematologic/Lymphatic Comment: uses aspirin - Allergic/Immunologic Allergic/Immunologic: Reports as per HPI, Reports seasonal allergies Objective - Vital Signs Vital signs: Vital Signs Temp 98.2 F 03/24/22 11:34 Pulse 63 03/24/22 11:34 Resp 18 03/24/22 11:34 BP 153/47 03/24/22 11:34 Pulse Ox 93 L 03/24/22 11:34 FiO2 Intake & Output 03/23/22 03/24/22 03/24/22 18:59 06:59 18:59 Weight 67.585 kg - Exam BMI 28.2 - Constitutional General appearance: Present: cooperative - EENT Eyes: Present: EOMI ENT: Present: hearing grossly normal - Neck Neck: Present: normal ROM - Respiratory Respiratory: bilateral: CTA - Cardiovascular Heart sounds: normal: S1, S2 - Integumentary Integumentary: Present: normal turgor - Musculoskeletal Musculoskeletal Comment(s): uses a cane - Psychiatric Psychiatric: Present: A&O x's 3, appropriate affect, intact judgment & insight - Additional findings Additional findings: Breast Exam: BRA: 44D inspection: Bilateral grade 3 ptosis Palpation: Right breast: 2.5 cm mass right breast at 9 o'clock position otherwise fibrofatty tissue and no other dominant masses or nodules of concern multiple positional exam Right axilla: No adenopathy of concern Left breast: Multi-positional exam no dominant masses or nodules of concern Left axilla: No adenopathy of concern Assessment and Plan Assessment: Impression: T2 N0 M0 G3 triple 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 Risks and benefits of the procedure discussed with the patient and her son. Risks include but are not limited to bleeding, infection, reaction to the anesthetic. If methylene blue was necessary to be you she may have some necrosis related to the methylene blue tattooing of the skin. Risks of the sentinel lobe biopsy/axillary surgery include but are not limited to bleeding, infection, reaction to the anesthetic, swelling of the arm, decreased sensation to the upper arm, possible injury to the thoracodorsal and long thoracic nerve resulted in wing scapula. They understand and wish to proceed. CC: Iman
== END ==
LOC: WWCWWP 11:17
PROVIDERS: ATTEND Surgery
DX: C50.911 Malignant neoplasm of unspecified site of right female breast (principal); E11.9 Type 2 diabetes mellitus without complications; M19.90 Unspecified osteoarthritis, unspecified site; R42 Dizziness and giddiness; Z88.5 Allergy status to narcotic agent

== ENCOUNTER → 2022-03-29 | Outpatient (CLI) | payer MEDICARE ==
[~2022-03-29] MED LIST: AMINOPHYLLINE 500 MG/20 ML VIAL IV ONE; REGADENOSON 0.4 MG/5 ML SYRINGE IV ONE
--- NOTE | 2022-03-30 10:15 | CA ---
Lexiscan Nuclear Stress Test Report Name: Sylwia Maria Exam Date: 03/29/2022 11:02 Exam Location: [place] Stress Ht (in): 61 Wt (lb): 145 BSA: 1.65 Ordering Phys: Shlomo Valerio MD Referring Phys: Shlomo Valerio MD Technologist: Aiden Rivers Age: 81 Gender: F : 1940 Procedure CPT: Indications: Z01.810 ENCOUNTER FOR PREPROCEDURAL ICD-10 Codes: Patient History: Pre surgical procedure Medications: Meds past 24 hrs: Pretest Chest Pain: STRESS TEST Lexiscan Protocol Exercise Duration (min:sec): 02:[address] Depressions (mm): Angina Score: Jones Score: Resting HR (bpm): 63 Peak HR (bpm): 86 Resting BP (mmHg): 142 / 75 Peak BP (mmHg): 145 / 62 MPHR: 138 Target HR: 117 % MPHR: 62 METS: 1.0 Total Dose: Peak Dose: Atropine: Double Product: 68175 BP Response: Stress Termination: Infusion finished Stress Symptoms: Nausea, Headache, leg discomfort and some vertigo 100mg Aminophylline at 1135 and patient felt better Stress Summary: ECG ANALYSIS Resting ECG: Stress ECG: CONCLUSIONS Lexiscan infusion per protocol Baseline heart rate 63 beats a minute, Baseline blood pressure 142/75 mmHg No change in heart rate blood pressure No ECG abnormalities No evidence for ischemia No arrhythmias Nuclear portion will be reported separately Dr. Shan Barba MD (Electronically Signed) Final Date: 30 March 2022 10:14
--- NOTE | 2022-03-30 13:31 | NM ---
EXAMINATION TYPE: NM stress lexiscan cardiolite DATE OF EXAM: 03/29/2022 COMPARISON: NONE HISTORY: Z01.810 TECHNIQUE: After the intravenous administration of 9.3 mCi Tc 99m Sestamibi - Cardiolite resting SPE CT images acquired 45 minutes post injection. The patient received 0.4mg Lexiscan, 25.8 mCi Tc 99m Sestamibi - Stress images obtained [address] injection FINDINGS: Review of stress and rest SPECT images demonstrates no distinct perfusion abnormality. Gated analysi s shows normal wall motion with an estimated left ventricular ejection fraction of 69 %. IMPRESSION: No scintigraphic evidence for reversible ischemia. Consider echocardiographic correlation for elevate d ejection fraction
== END | disposition home or self-care (01) ==
LOC: RADNMMAIN 09:23
PROVIDERS: ATTEND Internal Medicine
DX: Z01.810 Encounter for preprocedural cardiovascular examination (principal)
CPT/HCPCS: 93017; 78452; A9500; J0280; J2785

== ENCOUNTER → 2022-04-05 | Day surgery (SDC) | payer MEDICARE ==
[2022-04-03 16:09] VITALS: BMI 27.3
[~2022-04-05] MED LIST changes: +ALPRAZolam 0.25 MG TAB PO PRN; -AMINOPHYLLINE 500 MG/20 ML VIAL IV ONE; +DEXAMETHASONE SOD PHOSPHATE 4 MG/ML 1 ML VIAL IV ONE; +GLYCOPYRROLATE 0.2 MG/ML 2 ML VIAL ONE; +HEPARIN SODIUM,PORCINE/PF 5,000 UNIT/0.5 ML SYRINGE SQ PRN; +LABETALOL 5 MG/ML VIAL MDV IVP ONE; +LACTATED RINGERS 1,000 ML IV ONE; +LACTATED RINGERS 1,000 ML IV SCH; +LIDOCAINE 1% (10MG/ML) FOR IV START INTRADERMA PRN; +LIDOCAINE 1% INJ 10MG/ML (20 ML MDV) SQ ONE; +LIDOCAINE 2% INJ 20 MG/ML (2 ML VIAL) ONE; +ONDANSETRON 4 MG/2 ML VIAL IVP ONE; +PHENYLEPHRINE-0.9% NACL SYG 1,000 MCG/10 ML SYRINGE ONE; +PROPOFOL 10 MG/ML 20 ML VIAL IV ONE; +Pre Op ABX Message 1 EACH MISC MISCELLANE ONE; -REGADENOSON 0.4 MG/5 ML SYRINGE IV ONE; +SODIUM CHLORIDE 0.9% 50 ML with ceFAZolin 2,000 MG IV ONE; +SUCCINYLCHOLINE CHLORIDE 100 MG/5 ML SYR IV ONE; +fentaNYL (PF) 50 MCG/ML 2 ML AMP ONE
[2022-04-05 10:24] LABS: Glucose,Whole Blood 108 mg/dL (70-110)
--- NOTE | 2022-04-05 12:37 | NM ---
EXAMINATION TYPE: NM sentinel node injection DATE OF EXAM: 04/05/2022 COMPARISON: NONE INDICATION: Abnormal mammogram. Informed consent was obtained. A timeout was performed. The area around the right nipple was cleansed with alcohol. In a single dose, a total of 523 uCi Te chnetium 99m Tilmanocept was injected. The patient tolerated the procedure very well. IMPRESSIONS: 1. Successful injection for sentinel node evaluation.
--- NOTE | 2022-04-05 13:34 | P.NAPBC ---
NAPBC Queries - NAPBC Queries Was patient's case review presented at [facility] tumor board? If no, comment.: Yes Was patient's pathology reviewed at [facility]? If no, comment.: Yes Was breast conservation surgery offered? If no, comment.: Yes Was sentinel node biopsy offered? If no, comment.: Yes Was diagnosis confirmed by percutaneous core biopsy? If no, comment.: Yes Is patient mastectomy patient?: No Was a preop referral to reconstructive surgeon offered?: No Clinical Stage: stage IIB [id number]
--- NOTE | 2022-04-05 16:29 | P.OP ---
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 Postoperative Diagnosis: Same Procedure(s) Performed: Carter node biopsy, right breast needle local lumpectomy, onco-plastic tissue transfer 116 cm2 Anesthesia: LUCIE Surgeon: Laine Smith Estimated Blood Loss (ml): 20 IV fluids (ml): 600 Pathology: other (Carter node biopsy, breast tissue) Condition: stable Disposition: same day Indications for Procedure: Invasive ductal carcinoma right breast Operative Findings: Fibrofatty breast tissue Description of Procedure: The patient was seen initially in the radiology suite where needle localization of the area of concern was performed as well as injection of radioactive periareolar tracer. The patient was then brought to the operative suite. Following induction of anesthesia interrogation of the axilla did reveal minimal radioactivity in the axilla. The patient was then prepped and draped in a sterile fashion. The area of the axilla was approached initially. Using the neoprobe there was scant radioactivity in an incision was made. The axillary tissue was entered. Using the neoprobe no discrete area of increased activity could be identified. Palpation did not reveal any specific enlarged lymph nodes. Several areas of fibrofatty tissue was excised however there was question whether any lymph nodes were present. There is a question as to whether very deep within the axilla a lymph node may be present however this was not radioactive. Therefore the wound was well irrigated the superficial tissues were closed in the skin was closed using 4-0 Monocryl. The breast was then approached. An incision was made in the breast and surrounding tissue the palpable mass as well as the needle were excised. The area of excision was 11 cm x 6 cm. Following this the specimen was painted for orientation. Radiograph revealed that this area of concern had been removed. Additional margins were obtained medically, superiorly and inferiorly. Additionally it should be noted that dissection posteriorly was onto the chest wall, and anteriorly the skin was removed. After we were assured that hemostasis was attained titanium clips were placed. Surgicel in powder form was placed. A #10 ALANIS drain was placed. A superior flap 10 cm x 5 cm was developed. This was used to close the cavity using 3-0 Vicryl suture. Total tissue mobilization was 116 cm. The deep tissues were closed using 3-0 Vicryl suture. The drain was secured using a 3-0 nylon suture. The skin was closed using 4-0 Monocryl and darek. The patient tolerated the procedure in stable condition.
--- NOTE | 2022-04-05 16:31 | P.DS ---
Providers Attending physician: Laine Smith Primary care physician: Shlomo Valerio Plan - Discharge Summary Discharge Rx Participant: Yes New Discharge Prescriptions: No Action Aspirin EC [Ecotrin Low Dose] 81 mg PO DAILY Simvastatin [Zocor] 40 mg PO HS sitaGLIPtin PHOSPHATE [Januvia] 25 mg PO DAILY Pioglitazone [Actos] 15 mg PO DAILY Acetaminophen [Tylenol Extra Strength] 500 mg PO HS Cholecalciferol [Vitamin D3 (25 Mcg = 1000 Iu)] 50 mcg PO DAILY Cetirizine HCl [Zyrtec] 10 mg PO DAILY PRN PRN Reason: allergies Trospium Chloride [Sanctura] 20 mg PO QAM Melatonin 3 mg PO HS PRN PRN Reason: sleep Omeprazole [PriLOSEC] 20 mg PO DAILY PRN PRN Reason: reflux Losartan [Cozaar] 25 mg PO HS Tolterodine Tartrate [Tolterodine Tartrate ER] 4 mg PO HS Multivitamins, Thera [Multivitamin (formulary)] 1 tab PO DAILY Cyanocobalamin (Vitamin B-12) [Vitamin B-12] 5,000 mcg PO DAILY Calcium + D3 1 tab PO DIRECTED Discharge Medication List Aspirin EC [Ecotrin Low Dose] 81 mg PO DAILY 11/23/19 [History] Pioglitazone [Actos] 15 mg PO DAILY 11/23/19 [History] Simvastatin [Zocor] 40 mg PO HS 11/23/19 [History] sitaGLIPtin PHOSPHATE [Januvia] 25 mg PO DAILY 11/23/19 [History] Acetaminophen [Tylenol Extra Strength] 500 mg PO HS 04/03/22 [History] Calcium + D3 1 tab PO DIRECTED 04/03/22 [History] Cetirizine HCl [Zyrtec] 10 mg PO DAILY PRN 04/03/22 [History] Cholecalciferol [Vitamin D3 (25 Mcg = 1000 Iu)] 50 mcg PO DAILY 04/03/22 [History] Cyanocobalamin (Vitamin B-12) [Vitamin B-12] 5,000 mcg PO DAILY 04/03/22 [History] Losartan [Cozaar] 25 mg PO HS 04/03/22 [History] Melatonin 3 mg PO HS PRN 04/03/22 [History] Multivitamins, Thera [Multivitamin (formulary)] 1 tab PO DAILY 04/03/22 [History] Omeprazole [PriLOSEC] 20 mg PO DAILY PRN 04/03/22 [History] Tolterodine Tartrate [Tolterodine Tartrate ER] 4 mg PO HS 04/03/22 [History] Trospium Chloride [Sanctura] 20 mg PO QAM 04/03/22 [History] Follow up Appointment(s)/Referral(s): Laine Smith MD [STAFF PHYSICIAN] - 1-2 Days Activity/Diet/Wound Care/Special Instructions: wear bra at all times teach patient drain care, drain and record BID and as needed do not drive until seen by Dr. Larsen Discharge Disposition: HOME SELF-CARE
[2022-04-05 17:05] VITALS: TEMP 97
[2022-04-05] MEDS: HYDROmorphone 0.5 MG/0.5 ML SYRINGE IVP PRN ×2 (17:20→18:20)
[2022-04-05 18:13] VITALS: RESP 18
[2022-04-05 19:51] VITALS: BP 144/72; PULSE 60
--- NOTE | 2022-04-12 10:36 | USB ---
Reason for Exam: Clinical finding. Last screening mammogram was performed 2 month(s) ago. Patient History: Menarche at age 12. First Full-Term at age 22. Hysterectomy at age 63. Postmenopausal. Breast cancer, age 81. 1990, Benign Excisional Biopsy on the left side. 1989, Benign Excisional Biopsy on the left side. 02/06/2022, Malignant Core Biopsy on the right side. Prior Study Comparison: 05/21/2020 Bilateral Screening Mammogram, [facility]. 01/09/2022 Bilateral Diagnostic Mammogram, [facility]. 02/06/2022 Right Diagnostic Mammogram, [facility]. Tissue Density: Right: There are scattered fibroglandular densities. Findings: The needle localization procedure with wire placement for surgical excision was explained to the patient. Benefits, alternatives, and risks were discussed. An informed consent was then obtained. A timeout was performed. The overlying skin was prepped in usual sterile fashion. Lidocaine was used as anesthetic into the skin and subcutaneous tissue up to the level of area of concern. A 7 cm needle was used. It was placed using a lateral approach under ultrasound guidance. The wire was placed and the needle was withdrawn. Subsequent mammogram show the wire to be in satisfactory position relative to the targeted area. The wire was fixed to patient's skin. Images were marked for surgeon. The patient tolerated the procedure well without any immediate complication. The patient was kept in the radiology department for short stay for sentinel node injection after the procedure and then taken to surgery for surgical excision. Specimen: Biopsy marker and wire are identified in specimen mammogram. Ultrasound imaging of the specimen was also performed demonstrating the wire in the lesion localized. Impression: 1. Successful needle localization with wire placement and surgical excision of biopsy marker. Findings: The needle localization procedure with wire placement for surgical excision was explained to the patient. Benefits, alternatives, and risks were discussed. An informed consent was then obtained. A timeout was performed. The overlying skin was prepped in usual sterile fashion. Lidocaine was used as anesthetic into the skin and subcutaneous tissue up to the level of area of concern. A 7 cm needle was used. It was placed using a lateral approach under ultrasound guidance. The wire was placed and the needle was withdrawn. Subsequent mammogram show the wire to be in satisfactory position relative to the targeted area. The wire was fixed to patient's skin. Images were marked for surgeon. The patient tolerated the procedure well without any immediate complication. The patient was kept in the radiology department for short stay for sentinel node injection after the procedure and then taken to surgery for surgical excision. Specimen: Biopsy marker and wire are identified in specimen mammogram. Ultrasound imaging of the specimen was also performed demonstrating the wire in the lesion localized. Impression: 1. Successful needle localization with wire placement and surgical excision of biopsy marker. Pathology Description: The needle localization procedure with wire placement for surgical excision was explained to the patient. Benefits, alternatives, and risks were discussed. An informed consent was then obtained. A timeout was performed. The overlying skin was prepped in usual sterile fashion. Lidocaine was used as anesthetic into the skin and subcutaneous tissue up to the level of area of concern. A 7 cm needle was used. It was placed using a lateral approach under ultrasound guidance. The wire was placed and the needle was withdrawn. Subsequent mammogram show the wire to be in satisfactory position relative to the targeted area. The wire was fixed to patient's skin. Images were marked for surgeon. The patient tolerated the procedure well without any immediate complication. The patient was kept in the radiology department for short stay for sentinel node injection after the procedure and then taken to surgery for surgical excision. Specimen: Biopsy marker and wire are identified in specimen mammogram. Ultrasound imaging of the specimen was also performed demonstrating the wire in the lesion localized. Impression: 1. Successful needle localization with wire placement and surgical excision of biopsy marker. Pathology Results: Result: Malignant, Invasive ductal carcinoma. A. 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 All examined margins negative for in situ or invasive carcinoma. Closest margin to invasive carcinoma: Invasive carcinoma very close to and less than 1 mm from anterior and medial margins. Closest margin to DCIS: Focally favored DCIS present close to and less than 1 mm from anterior margin. B. DESIGNATED "AXILLARY CONTENTS", EXCISION: Benign skeletal muscle and fibroadipose tissue with no lymphoid tissue identified within sections examined. C. NEW ANTERIOR MARGIN, EXCISION: Skin and subcutaneous fibroadipose tissue negative for malignancy. D. NEW MEDIAL MARGIN, EXCISION: Benign breast tissue with new medial margin negative for malignancy. E. NEW SUPERIOR MARGIN, EXCISION: Benign breast tissue with new superior margin negative for malignancy. F. NEW INFERIOR MARGIN, EXCISION: Benign breast tissue with new inferior margin negative for malignancy. Pathology Description: US of surgical specimen seen with wire anterior to mass The needle localization procedure with wire placement for surgical excision was explained to the patient. Benefits, alternatives, and risks were discussed. An informed consent was then obtained. A timeout was performed. The overlying skin was prepped in usual sterile fashion. Lidocaine was used as anesthetic into the skin and subcutaneous tissue up to the level of area of concern. A 7 cm needle was used. It was placed using a lateral approach under ultrasound guidance. The wire was placed and the needle was withdrawn. Subsequent mammogram show the wire to be in satisfactory position relative to the targeted area. The wire was fixed to patient's skin. Images were marked for surgeon. The patient tolerated the procedure well without any immediate complication. The patient was kept in the radiology department for short stay for sentinel node injection after the procedure and then taken to surgery for surgical excision. Specimen: Biopsy marker and wire are identified in specimen mammogram. Ultrasound imaging of the specimen was also performed demonstrating the wire in the lesion localized. Impression: 1. Successful needle localization with wire placement and surgical excision of biopsy marker. Pathology Results: Result: Malignant, Invasive ductal carcinoma. A. 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 All examined margins negative for in situ or invasive carcinoma. Closest margin to invasive carcinoma: Invasive carcinoma very close to and less than 1 mm from anterior and medial margins. Closest margin to DCIS: Focally favored DCIS present close to and less than 1 mm from anterior margin. B. DESIGNATED "AXILLARY CONTENTS", EXCISION: Benign skeletal muscle and fibroadipose tissue with no lymphoid tissue identified within sections examined. C. NEW ANTERIOR MARGIN, EXCISION: Skin and subcutaneous fibroadipose tissue negative for malignancy. D. NEW MEDIAL MARGIN, EXCISION: Benign breast tissue with new medial margin negative for malignancy. E. NEW SUPERIOR MARGIN, EXCISION: Benign breast tissue with new superior margin negative for malignancy. F. NEW INFERIOR MARGIN, EXCISION: Benign breast tissue with new inferior margin negative for malignancy. Overall Assessment: Malignant Assessment: MG diagnostic mammo RT wo CAD - Right: Known biopsy proven malignancy, BI-RAD 6. Management: Surgical Consultation of the right breast. Electronically signed and approved by: Augie Farias D.O. Radiologis
--- NOTE | 2022-04-12 10:36 | USB ---
Reason for Exam: Clinical finding. Last screening mammogram was performed 2 month(s) ago. Patient History: Menarche at age 12. First Full-Term at age 22. Hysterectomy at age 63. Postmenopausal. Breast cancer, age 81. 1990, Benign Excisional Biopsy on the left side. 1989, Benign Excisional Biopsy on the left side. 02/06/2022, Malignant Core Biopsy on the right side. Prior Study Comparison: 05/21/2020 Bilateral Screening Mammogram, [facility]. 01/09/2022 Bilateral Diagnostic Mammogram, [facility]. 02/06/2022 Right Diagnostic Mammogram, [facility]. Tissue Density: Right: There are scattered fibroglandular densities. Findings: The needle localization procedure with wire placement for surgical excision was explained to the patient. Benefits, alternatives, and risks were discussed. An informed consent was then obtained. A timeout was performed. The overlying skin was prepped in usual sterile fashion. Lidocaine was used as anesthetic into the skin and subcutaneous tissue up to the level of area of concern. A 7 cm needle was used. It was placed using a lateral approach under ultrasound guidance. The wire was placed and the needle was withdrawn. Subsequent mammogram show the wire to be in satisfactory position relative to the targeted area. The wire was fixed to patient's skin. Images were marked for surgeon. The patient tolerated the procedure well without any immediate complication. The patient was kept in the radiology department for short stay for sentinel node injection after the procedure and then taken to surgery for surgical excision. Specimen: Biopsy marker and wire are identified in specimen mammogram. Ultrasound imaging of the specimen was also performed demonstrating the wire in the lesion localized. Impression: 1. Successful needle localization with wire placement and surgical excision of biopsy marker. Findings: The needle localization procedure with wire placement for surgical excision was explained to the patient. Benefits, alternatives, and risks were discussed. An informed consent was then obtained. A timeout was performed. The overlying skin was prepped in usual sterile fashion. Lidocaine was used as anesthetic into the skin and subcutaneous tissue up to the level of area of concern. A 7 cm needle was used. It was placed using a lateral approach under ultrasound guidance. The wire was placed and the needle was withdrawn. Subsequent mammogram show the wire to be in satisfactory position relative to the targeted area. The wire was fixed to patient's skin. Images were marked for surgeon. The patient tolerated the procedure well without any immediate complication. The patient was kept in the radiology department for short stay for sentinel node injection after the procedure and then taken to surgery for surgical excision. Specimen: Biopsy marker and wire are identified in specimen mammogram. Ultrasound imaging of the specimen was also performed demonstrating the wire in the lesion localized. Impression: 1. Successful needle localization with wire placement and surgical excision of biopsy marker. Pathology Description: The needle localization procedure with wire placement for surgical excision was explained to the patient. Benefits, alternatives, and risks were discussed. An informed consent was then obtained. A timeout was performed. The overlying skin was prepped in usual sterile fashion. Lidocaine was used as anesthetic into the skin and subcutaneous tissue up to the level of area of concern. A 7 cm needle was used. It was placed using a lateral approach under ultrasound guidance. The wire was placed and the needle was withdrawn. Subsequent mammogram show the wire to be in satisfactory position relative to the targeted area. The wire was fixed to patient's skin. Images were marked for surgeon. The patient tolerated the procedure well without any immediate complication. The patient was kept in the radiology department for short stay for sentinel node injection after the procedure and then taken to surgery for surgical excision. Specimen: Biopsy marker and wire are identified in specimen mammogram. Ultrasound imaging of the specimen was also performed demonstrating the wire in the lesion localized. Impression: 1. Successful needle localization with wire placement and surgical excision of biopsy marker. Pathology Results: Result: Malignant, Invasive ductal carcinoma. A. 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 All examined margins negative for in situ or invasive carcinoma. Closest margin to invasive carcinoma: Invasive carcinoma very close to and less than 1 mm from anterior and medial margins. Closest margin to DCIS: Focally favored DCIS present close to and less than 1 mm from anterior margin. B. DESIGNATED "AXILLARY CONTENTS", EXCISION: Benign skeletal muscle and fibroadipose tissue with no lymphoid tissue identified within sections examined. C. NEW ANTERIOR MARGIN, EXCISION: Skin and subcutaneous fibroadipose tissue negative for malignancy. D. NEW MEDIAL MARGIN, EXCISION: Benign breast tissue with new medial margin negative for malignancy. E. NEW SUPERIOR MARGIN, EXCISION: Benign breast tissue with new superior margin negative for malignancy. F. NEW INFERIOR MARGIN, EXCISION: Benign breast tissue with new inferior margin negative for malignancy. Pathology Description: US of surgical specimen seen with wire anterior to mass The needle localization procedure with wire placement for surgical excision was explained to the patient. Benefits, alternatives, and risks were discussed. An informed consent was then obtained. A timeout was performed. The overlying skin was prepped in usual sterile fashion. Lidocaine was used as anesthetic into the skin and subcutaneous tissue up to the level of area of concern. A 7 cm needle was used. It was placed using a lateral approach under ultrasound guidance. The wire was placed and the needle was withdrawn. Subsequent mammogram show the wire to be in satisfactory position relative to the targeted area. The wire was fixed to patient's skin. Images were marked for surgeon. The patient tolerated the procedure well without any immediate complication. The patient was kept in the radiology department for short stay for sentinel node injection after the procedure and then taken to surgery for surgical excision. Specimen: Biopsy marker and wire are identified in specimen mammogram. Ultrasound imaging of the specimen was also performed demonstrating the wire in the lesion localized. Impression: 1. Successful needle localization with wire placement and surgical excision of biopsy marker. Pathology Results: Result: Malignant, Invasive ductal carcinoma. A. 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 All examined margins negative for in situ or invasive carcinoma. Closest margin to invasive carcinoma: Invasive carcinoma very close to and less than 1 mm from anterior and medial margins. Closest margin to DCIS: Focally favored DCIS present close to and less than 1 mm from anterior margin. B. DESIGNATED "AXILLARY CONTENTS", EXCISION: Benign skeletal muscle and fibroadipose tissue with no lymphoid tissue identified within sections examined. C. NEW ANTERIOR MARGIN, EXCISION: Skin and subcutaneous fibroadipose tissue negative for malignancy. D. NEW MEDIAL MARGIN, EXCISION: Benign breast tissue with new medial margin negative for malignancy. E. NEW SUPERIOR MARGIN, EXCISION: Benign breast tissue with new superior margin negative for malignancy. F. NEW INFERIOR MARGIN, EXCISION: Benign breast tissue with new inferior margin negative for malignancy. Overall Assessment: Malignant Assessment: MG diagnostic mammo RT wo CAD - Right: Known biopsy proven malignancy, BI-RAD 6. Management: Surgical Consultation of the right breast. Electronically signed and approved by: Augie Farias D.O. Radiologis
== END | disposition home or self-care (01) ==
LOC: OR 09:13
PROVIDERS: ATTEND Surgery
DX: D05.11 Intraductal carcinoma in situ of right breast (principal); N60.81 Other benign mammary dysplasias of right breast; N60.11 Diffuse cystic mastopathy of right breast; E11.69 Type 2 diabetes mellitus with other specified complication; E78.5 Hyperlipidemia, unspecified; I10 Essential (primary) hypertension; M19.90 Unspecified osteoarthritis, unspecified site; K21.9 Gastro-esophageal reflux disease without esophagitis; Z79.82 Long term (current) use of aspirin; Z79.84 Long term (current) use of oral hypoglycemic drugs; Z79.899 Other long term (current) drug therapy; Z88.5 Allergy status to narcotic agent; Z80.0 Family history of malignant neoplasm of digestive organs
CPT/HCPCS: 88307; 77065; 76098; 76999; 19285; 38792; 19301; 14301; 14302 ×2; 38525; A9520; J1100; J2405; J0690; J2001 ×2; J3010; J2370; J0330; J2704; J1170; J1644

== ENCOUNTER → 2022-04-07 | Outpatient (CLI) | payer MEDICARE ==
[2022-04-07 12:40] VITALS: BP 146/71; PULSE 75; RESP 17; TEMP 98.7
--- NOTE | 2022-04-07 12:45 | P.PN ---
Progress Note - Text Progress Note Date: 04/07/22 Sylwia is an 81 year old white female status post lumpectomy and axillary tissue sampling on 04-05-22. Postoperatively she is doing well. Her ALANIS drainage is serous in nature was approximately 30 mL yesterday. Lungs: Clear Heart: Regular rate and rhythm Incisions: Clean and dry no evidence of hematoma or infection ALANIS drain working well Impression: Pathology pending Plan: Continue present treatment Follow-up approximately one week Follow up sooner if any questions or concerns CC: Dr. Valerio
== END ==
LOC: WWCWWP 12:28
PROVIDERS: ATTEND Surgery
DX: L76.82 Other postprocedural complications of skin and subcutaneous tissue (principal); Z88.5 Allergy status to narcotic agent

== ENCOUNTER → 2022-04-20 | Outpatient (CLI) | payer MEDICARE ==
--- NOTE | 2022-04-20 11:48 | P.PN ---
Progress Note - Text Progress Note Date: 04/20/22 Sylwia is an 81 -year-old white female status post right breast lumpectomy for multifocal invasive ductal carcinoma and attempted sentinel node biopsy. The lumpectomy revealed a 3.5 cm focus of cancer as well as a second area that was 0.5 cm in greatest dimension. The margins were negative. The sentinel node biopsy revealed only fibroadipose tissue with no lymphoid tissue identified. This was a grade 3 triple negative tumor. Physical examination: Lungs: Clear Heart: Regular rate and rhythm Incision axilla and breast clean and dry ALANIS drain approximately 10 mL for the last several days Impression: Patient doing well at this time margins negative from resection/sentinel node not adequately sampled Plan: Follow-up radiation oncology Follow-up medical oncology Follow-up. 3 months with ultrasound of the axilla I've discussed with the patient and her son that no specific sentinel node was identified and have recommended close surveillance of this area. They understand and she will follow up with radiation oncology and possible recommendation for radiation to the axilla as well. I have discussed her case with Dr. Juventino Montero radiation oncology. He is going to further evaluate the axilla when he sees her and no further surgery was recommended at this time. CC: Dr. Valerio
[2022-04-20 12:03] VITALS: BP 151/71; PULSE 67; RESP 18; TEMP 97.8
== END ==
LOC: WWCWWP 11:12
PROVIDERS: ATTEND Surgery
DX: C50.911 Malignant neoplasm of unspecified site of right female breast (principal); Z98.890 Other specified postprocedural states; Z88.5 Allergy status to narcotic agent

== ENCOUNTER → 2022-06-27 | Outpatient (CLI) | payer MEDICARE ==
--- NOTE | 2022-06-27 16:43 | US ---
EXAMINATION TYPE: US kidneys/renal and bladder DATE OF EXAM: 06/27/2022 COMPARISON: US CLINICAL HISTORY: R94.4 ABN RENAL FUNCTION TESTS. EXAM MEASUREMENTS: Right Kidney: 9.0 x 4.4 x 4.3 cm Left Kidney: 9.0 x 4.6 x 3.9 cm Patient of large body habitus, technically difficult limited exam. Right Kidney: cortical thinning Left Kidney: cortical thinning, 2 cysts largest measuring 1.6 x 1.3 x 1.5cm Bladder: wnl as seen, not fully distended There is increased echotexture to kidneys with cortical thinning. IMPRESSION: 1. Medical renal disease 2. No evidence of obstructive uropathy. 3. Left renal cyst.
== END | disposition home or self-care (01) ==
LOC: RADUSWWP 14:45
PROVIDERS: ATTEND Internal Medicine Hematology & Oncology
DX: N28.1 Cyst of kidney, acquired (principal); R94.4 Abnormal results of kidney function studies
CPT/HCPCS: 76770

== ENCOUNTER 2022-07-06 09:57 | Emergency (ER) | payer MEDICARE ==
[2022-07-06 10:02] VITALS: TEMP 97.7
[2022-07-06] MEDS ORDERED: SODIUM CHLORIDE 0.9% 1,000 ML IV STA (10:09)
[2022-07-06] MEDS ORDERED: FAMOTIDINE 20 MG/2 ML VIAL IV STA (10:10)
--- NOTE | 2022-07-06 10:56 | ED ---
Nausea/Vomiting/Diarrhea HPI - General Chief complaint: Nausea/Vomiting/Diarrhea Stated complaint: diarrhea Time Seen by Provider: 07/06/22 10:02 Source: patient, RN notes reviewed Mode of arrival: ambulatory Limitations: no limitations - History of Present Illness Initial comments: This is an 81-year-old female who presents to the emergency department for diarrhea. Patient states that this been present for the last 2-3 days. She believes that she has only been having 2-3 episodes a day. She is currently receiving chemotherapy for breast cancer diagnosed in February 2022. Dr. Matias is her oncologist. She just finished her second round of chemo one week ago. She did not have any problems after the first round of chemo. States that she feels very dehydrated. Denies any associated abdominal pain, nausea, or vomiting. Denies any recent antibiotic use or blood in the stool. Denies any fevers, chills, sore throat, cough, dyspnea, chest pain, palpitations, abdominal pain, nausea, vomiting, back pain, or headaches. MD complaint: diarrhea Onset/Timin -: days(s) Associated Abdominal Pain: No - Related Data Home Medications Medication Instructions Recorded Confirmed Aspirin EC [Ecotrin Low Dose] 81 mg PO DAILY 11/23/19 04/20/22 Pioglitazone [Actos] 15 mg PO DAILY 11/23/19 04/20/22 Simvastatin [Zocor] 40 mg PO HS 11/23/19 04/20/22 sitaGLIPtin PHOSPHATE [Januvia] 25 mg PO DAILY 11/23/19 04/20/22 Acetaminophen [Tylenol Extra 500 mg PO HS 04/03/22 04/20/22 Strength] Calcium + D3 1 tab PO DIRECTED 04/03/22 04/20/22 Cetirizine HCl [Zyrtec] 10 mg PO DAILY PRN 04/03/22 04/20/22 Cholecalciferol [Vitamin D3 (25 50 mcg PO DAILY 04/03/22 04/20/22 Mcg = 1000 Iu)] Cyanocobalamin (Vitamin B-12) 5,000 mcg PO DAILY 04/03/22 04/20/22 [Vitamin B-12] Losartan [Cozaar] 25 mg PO HS 04/03/22 04/20/22 Melatonin 3 mg PO HS PRN 04/03/22 04/20/22 Multivitamins, Thera [Multivitamin 1 tab PO DAILY 04/03/22 04/20/22 (formulary)] Omeprazole [PriLOSEC] 20 mg PO DAILY PRN 04/03/22 04/20/22 Tolterodine Tartrate [Tolterodine 4 mg PO HS 04/03/22 04/20/22 Tartrate ER] Trospium Chloride [Sanctura] 20 mg PO QAM 04/03/22 04/20/22 Previous Rx's Medication Instructions Recorded Cephalexin [Keflex] 500 mg PO Q6HR 7 Days #28 cap 07/06/22 Loperamide HCl [Loperamide] 2 mg PO DIRECTED #15 capsule 07/06/22 Allergies Allergy/AdvReac Type Severity Reaction Status Date / Time morphine Allergy Hallucinati Verified 07/06/22 10:02 ons Review of Systems ROS Statement: Those systems with pertinent positive or pertinent negative responses have been documented in the HPI. ROS Other: All systems not noted in ROS Statement are negative. 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 right breat CA History of Any Multi-Drug Resistant Organisms: None Reported Past Surgical History: Cholecystectomy, Orthopedic Surgery Additional Past Surgical History / Comment(s): eye surgery. Past Anesthesia/Blood Transfusion Reactions: No Reported Reaction Past Psychological History: No Psychological Hx Reported Smoking Status: Never smoker Past Alcohol Use History: Occasional Past Drug Use History: None Reported General Exam Limitations: no limitations General appearance: alert Head exam: Present: atraumatic, normocephalic, normal inspection Respiratory exam: Present: normal lung sounds bilaterally. Absent: respiratory distress, wheezes, rales, rhonchi, stridor Cardiovascular Exam: Present: regular rate, normal rhythm, normal heart sounds. Absent: systolic murmur, diastolic murmur, rubs, gallop, clicks GI/Abdominal exam: Present: soft, hyperactive bowel sounds. Absent: distended, tenderness Neurological exam: Present: alert, oriented X3, CN II-XII intact Psychiatric exam: Present: normal affect, normal mood Skin exam: Present: warm, dry, intact, normal color. Absent: rash Course Vital Signs 07/06/22 07/06/22 09:59 12:21 Temperature 97.7 F Pulse Rate 89 79 Respiratory 20 18 Rate Blood Pressure 126/53 124/55 O2 Sat by Pulse 96 98 Oximetry Medical Decision Making - Medical Decision Making This is an 81-year-old female who presents to the emergency department for diarrhea. Baseline lab work obtained and the patient was rehydrated with IV fluids and given a dose of Pepcid. Urinalysis consistent with a urinary tract infection. Patient given a dose of ceftriaxone in the emergency department. COVID test is negative. Discussed with the family that the diarrhea may be related to the urinary tract infection or the chemotherapy. Given that the patient is high risk due to her immunocompromised state, I recommended admission for antibiotic and symptomatic management. Patient declined and states that she prefers to go home. Strict return parameters discussed. Prescription for Keflex provided to treat the urinary tract infection. She is instructed to follow up with her primary care provider and oncology. Prescription for loperamide provided as well to help with the diarrhea and she is instructed to remain well hydrated. Return precautions reviewed in depth, the patient is instructed to return to the emergency department with any new, worsening, or concerning symptoms. Patient verbalized understanding. This case was discussed in detail with the attending ED physician. Presentation, findings, and treatment plan discussed in detail as well. - Lab Data Result diagrams: 07/06/22 10:43 07/06/22 10:43 Lab Results 07/06/22 07/06/22 07/06/22 Range/Units 10:43 10:43 10:43 WBC 1.9 L (3.8-10.6) k/uL RBC 2.62 L (3.80-5.40) m/uL Hgb 8.0 L (11.4-16.0) gm/dL Hct 24.8 L (34.0-46.0) % MCV 94.4 (80.0-100.0) fL MCH 30.4 (25.0-35.0) pg MCHC 32.2 (31.0-37.0) g/dL RDW 14.5 (11.5-15.5) % Plt Count 86 L (150-450) k/uL MPV 10.9 Neutrophils % (Manual) 28 % Band Neuts % (Manual) 2 % Lymphocytes % (Manual) 30 % Monocytes % (Manual) 29 % Eosinophils % (Manual) 8 % Basophils % (Manual) 2 % Myelocytes % 1 % Neutrophils # (Manual) 0.50 L (1.3-7.7) k/uL Lymphocytes # (Manual) 0.57 L (1.0-4.8) k/uL Monocytes # (Manual) 0.55 (0-1.0) k/uL Eosinophils # (Manual) 0.15 (0-0.7) k/uL Basophils # (Manual) 0.04 (0-0.2) k/uL Myelocytes # (Manual) 0.02 H (0) k/uL Nucleated RBCs 0 (0-0) /100 WBC Manual Slide Review Performed Large Platelets Present Sodium 136 L (137-145) mmol/L Potassium 4.2 (3.5-5.1) mmol/L Chloride 105 (98-107) mmol/L Carbon Dioxide 20 L (22-30) mmol/L Anion Gap 11 mmol/L BUN 48 H (7-17) mg/dL Creatinine 1.85 H (0.52-1.04) mg/dL Est GFR (CKD-EPI)AfAm 29 (>60 ml/min/1.73 sqM) Est GFR (CKD-EPI)NonAf 25 (>60 ml/min/1.73 sqM) Glucose 122 H (74-99) mg/dL Calcium 9.1 (8.4-10.2) mg/dL Total Bilirubin 0.3 (0.2-1.3) mg/dL AST 22 (14-36) U/L ALT 19 (4-34) U/L Alkaline Phosphatase 73 (38-126) U/L Total Protein 5.4 L (6.3-8.2) g/dL Albumin 3.2 L (3.5-5.0) g/dL Amylase 70 (30-110) U/L Lipase 264 (23-300) U/L Urine Color Yellow Urine Appearance Cloudy H (Clear) Urine pH 5.0 (5.0-8.0) Ur Specific Rosenberg 1.015 (1.001-1.035) Urine Protein Trace H (Negative) Urine Glucose (UA) Negative (Negative) Urine Ketones Negative (Negative) Urine Blood Negative (Negative) Urine Nitrite Positive H (Negative) Urine Bilirubin Negative (Negative) Urine Urobilinogen <2.0 (<2.0) mg/dL Ur Leukocyte Esterase Moderate H (Negative) Urine RBC <1 (0-5) /hpf Urine WBC 16 H (0-5) /hpf Ur Squamous Epith Cells 1 (0-4) /hpf Urine Bacteria Occasional H (None) /hpf Hyaline Casts 5 H (0-2) /lpf Urine Mucus Rare H (None) /hpf Coronavirus (PCR) (Not Detectd) 07/06/22 Range/Units 10:43 WBC (3.8-10.6) k/uL RBC (3.80-5.40) m/uL Hgb (11.4-16.0) gm/dL Hct (34.0-46.0) % MCV (80.0-100.0) fL MCH (25.0-35.0) pg MCHC (31.0-37.0) g/dL RDW (11.5-15.5) % Plt Count (150-450) k/uL MPV Neutrophils % (Manual) % Band Neuts % (Manual) % Lymphocytes % (Manual) % Monocytes % (Manual) % Eosinophils % (Manual) % Basophils % (Manual) % Myelocytes % % Neutrophils # (Manual) (1.3-7.7) k/uL Lymphocytes # (Manual) (1.0-4.8) k/uL Monocytes # (Manual) (0-1.0) k/uL Eosinophils # (Manual) (0-0.7) k/uL Basophils # (Manual) (0-0.2) k/uL Myelocytes # (Manual) (0) k/uL Nucleated RBCs (0-0) /100 WBC Manual Slide Review Large Platelets Sodium (137-145) mmol/L Potassium (3.5-5.1) mmol/L Chloride (98-107) mmol/L Carbon Dioxide (22-30) mmol/L Anion Gap mmol/L BUN (7-17) mg/dL Creatinine (0.52-1.04) mg/dL Est GFR (CKD-EPI)AfAm (>60 ml/min/1.73 sqM) Est GFR (CKD-EPI)NonAf (>60 ml/min/1.73 sqM) Glucose (74-99) mg/dL Calcium (8.4-10.2) mg/dL Total Bilirubin (0.2-1.3) mg/dL AST (14-36) U/L ALT (4-34) U/L Alkaline Phosphatase (38-126) U/L Total Protein (6.3-8.2) g/dL Albumin (3.5-5.0) g/dL Amylase (30-110) U/L Lipase (23-300) U/L Urine Color Urine Appearance (Clear) Urine pH (5.0-8.0) Ur Specific Rosenberg (1.001-1.035) Urine Protein (Negative) Urine Glucose (UA) (Negative) Urine Ketones (Negative) Urine Blood (Negative) Urine Nitrite (Negative) Urine Bilirubin (Negative) Urine Urobilinogen (<2.0) mg/dL Ur Leukocyte Esterase (Negative) Urine RBC (0-5) /hpf Urine WBC (0-5) /hpf Ur Squamous Epith Cells (0-4) /hpf Urine Bacteria (None) /hpf Hyaline Casts (0-2) /lpf Urine Mucus (None) /hpf Coronavirus (PCR) Not Detected (Not Detectd) - EKG Data EKG Comments: Sinus rhythm. Normal axis. Ventricular rate 79 bpm, PA interval 164 ms, QRS duration 87 ms, QTC 378 ms. Disposition Clinical Impression: UTI (urinary tract infection), Diarrhea Disposition: HOME SELF-CARE Instructions (If sedation given, give patient instructions): Loperamide (By mouth), Acute Diarrhea (ED) Additional Instructions: Return to the emergency department with any new, worsening, or concerning symptoms. Take the antibiotic as prescribed for 7 days. Take the loperamide as instructed, as 2 capsules (4mg) initially followed by 1 capsule (2mg) after each loose stool, taking no more than 16 mg a day. Follow up with your primary care provider in 1-2 days and oncologist as instructed. Prescriptions: Cephalexin [Keflex] 500 mg PO Q6HR 7 Days #28 cap Loperamide HCl [Loperamide] 2 mg PO DIRECTED #15 capsule Is patient prescribed a controlled substance at d/c from ED?: No Referrals: Shlomo Valerio MD [Primary Care Provider] - 1-2 days
[2022-07-06] MEDS ORDERED: DIPHENOX-ATROP 2.5-0.025 MG 1 EACH TAB PO STA (11:09)
[2022-07-06 11:34] LABS: Appearance,Urine Cloudy (Clear); Bacteria,Urine Occasional /hpf; Bilirubin,Urine Negative (Negative); Blood,Urine Negative (Negative); Color,Urine Yellow; Glucose,Urine (UA) Negative (Negative); Hyaline Casts,Urine 5 /lpf (0-2); Ketones,Urine Negative (Negative); Leukocyte Esterase,Urine Moderate (Negative); Mucus,Urine Rare /hpf; Nitrite,Urine Positive (Negative); Protein,Urine Trace (Negative); RBC,Urine <1 /hpf (0-5); Specific Gravity,Urine 1.015 (1.001-1.035); Squamous Epithelial Cell,Urine 1 /hpf (0-4); Urobilinogen,Urine <2.0 mg/dL (<2.0); WBC,Urine 16 /hpf (0-5)
[2022-07-06 11:36] LABS: Albumin 3.2 g/dL (3.5-5.0); Calcium 9.1 mg/dL (8.4-10.2); Potassium 4.2 mmol/L (3.5-5.1); Total Bilirubin 0.3 mg/dL (0.2-1.3); Total Protein 5.4 g/dL (6.3-8.2)
[2022-07-06] MEDS ORDERED: cefTRIAXone IN SWFI 1,000 MG/10 ML SYRINGE IVP STA (11:41)
[2022-07-06 11:48] LABS: HCT 24.8 % (34.0-46.0); MCH 30.4 pg (25.0-35.0); MCHC 32.2 g/dL (31.0-37.0); MCV 94.4 fL (80.0-100.0); Mean Platelet Volume 10.9; RBC 2.62 m/uL (3.80-5.40); RDW 14.5 % (11.5-15.5); WBC 1.9 k/uL (3.8-10.6)
[2022-07-06 12:22] VITALS: BP 124/55; PULSE 79; RESP 18
[2022-07-06 12:34] LABS: Platelet Count 86 k/uL (150-450)
[2022-07-06 12:45] LABS: Band Neutrophils % 2 %; Basophils # (M) 0.04 k/uL (0-0.2); Eosinophils # (M) 0.15 k/uL (0-0.7); Lymphocytes # (M) 0.57 k/uL (1.0-4.8); Monocytes # (M) 0.55 k/uL (0-1.0); Myelocytes # (M) 0.02 k/uL (0); Myelocytes % 1 %; Neutrophils % (M) 28 %; Nucleated Red Blood Cells 0 /100 WBC (0-0); Total Cells Counted 100
[2022-07-06 12:47] LABS: Large Platelets Present
== END 2022-07-06 13:34 | disposition home or self-care (01) ==
LOC: EC 09:57
DX: R19.7 Diarrhea, unspecified (principal); N39.0 Urinary tract infection, site not specified; E11.9 Type 2 diabetes mellitus without complications; M19.90 Unspecified osteoarthritis, unspecified site; Z88.6 Allergy status to analgesic agent; Z79.82 Long term (current) use of aspirin; Z79.899 Other long term (current) drug therapy; Z20.822 Contact with and (suspected) exposure to COVID-19
CPT/HCPCS: 36415; 93005; 80053; 82150; 83690; 85025; 81001; 87086; 87635; 99284; 96374; 96375; 96361; J0696

== ENCOUNTER → 2022-07-18 | Outpatient (CLI) | payer MEDICARE ==
--- NOTE | 2022-07-19 09:47 | US ---
EXAMINATION TYPE: US venous doppler duplex LE BI DATE OF EXAM: 07/18/2022 3:57 PM COMPARISON: NONE CLINICAL HISTORY: 81-year-old female with pain, swelling of the left and right limbs M79.662 M79.661 R22.42 R22.41. Pain and swelling, no h/o DVT SIDE PERFORMED: bilateral TECHNIQUE: The lower extremity deep venous system is examined utilizing real time linear array sonog vanessa with graded compression, doppler sonography and color-flow sonography. FINDINGS: There is normal flow, compressibility, vascular waveforms. VESSELS IMAGED: Common Femoral Vein Deep Femoral Vein Greater Saphenous Vein * Femoral Vein Popliteal Vein Small Saphenous Vein * Proximal Calf Veins Peroneal veins Posterior tibial veins (* superficial vessels) Right Leg: Negative for DVT Left Leg: Negative for DVT *results to Kathy's voicemail IMPRESSION: No evidence for DVT within the bilateral lower extremities.
== END | disposition home or self-care (01) ==
LOC: RADUSWWP 15:25
PROVIDERS: ATTEND Internal Medicine Hematology & Oncology
DX: R22.42 Localized swelling, mass and lump, left lower limb (principal); R22.41 Localized swelling, mass and lump, right lower limb; M79.662 Pain in left lower leg; M79.661 Pain in right lower leg
CPT/HCPCS: 93970

== ENCOUNTER 2022-08-09 09:01 | Inpatient (IN) | payer MEDICARE ==
[2022-08-09] MEDS ORDERED: ONDANSETRON 4 MG/2 ML VIAL IVP STA (09:53)
[2022-08-09] MEDS ORDERED: SODIUM CHLORIDE 0.9% 1,000 ML IV STA ×2 (09:53→11:41)
[2022-08-09] MEDS ORDERED: PANTOPRAZOLE 40 MG/10 ML VIAL IVP STA (09:53)
[2022-08-09 10:18] LABS: HGB 8.6 gm/dL (11.4-16.0); MCH 30.6 pg (25.0-35.0); MCV 95.6 fL (80.0-100.0); Mean Platelet Volume 10.9; RBC 2.82 m/uL (3.80-5.40); RDW 14.6 % (11.5-15.5)
[2022-08-09 10:20] LABS: INR 0.9 (<1.2); Partial Thromboplastin Time 22.5 sec (22.0-30.0); Prothrombin Time 10.1 sec (9.0-12.0)
[2022-08-09 10:32] LABS: Band Neutrophils % 1 %; Eosinophils # (M) 0.03 k/uL (0-0.7); Lymphocytes # (M) 0.18 k/uL (1.0-4.8); Monocytes # (M) 0.63 k/uL (0-1.0); Neutrophils % (M) 71 %; Nucleated Red Blood Cells 0 /100 WBC (0-0); Platelet Count 98 k/uL (150-450); Polychromasia Present; Total Cells Counted 100
[2022-08-09 10:36] LABS: Albumin 3.7 g/dL (3.5-5.0); Calcium 8.7 mg/dL (8.4-10.2); Potassium 4.3 mmol/L (3.5-5.1); Total Bilirubin 0.5 mg/dL (0.2-1.3); Total Protein 5.9 g/dL (6.3-8.2)
--- NOTE | 2022-08-09 10:46 | XR ---
EXAMINATION TYPE: XR KUB DATE OF EXAM: 08/09/2022 COMPARISON: NONE HISTORY: Pain TECHNIQUE: Single supine KUB image of the abdomen is obtained FINDINGS: Small bowel demonstrates no evidence for dilatation or air fluid levels. Gas and fecal material is seen in non-distended colon. No convincing evidence for pneumoperitoneum. No unusual calcifications. The lung bases are clear. The osseous structures are intact. IMPRESSION: 1. Overall nonobstructive bowel gas pattern.
[2022-08-09] MEDS ORDERED: NALOXONE 0.4 MG/ML 1 ML VIAL IV PRN (11:53)
[2022-08-09] MEDS ORDERED: ONDANSETRON 4 MG/2 ML VIAL IVP PRN (11:53)
--- NOTE | 2022-08-09 11:56 | ED ---
General Adult HPI - General Chief complaint: Nausea/Vomiting/Diarrhea Stated complaint: vomiting Time Seen by Provider: 08/09/22 09:24 Source: patient, RN notes reviewed, old records reviewed Mode of arrival: wheelchair Limitations: no limitations - History of Present Illness Initial comments: Patient is an 82-year-old female with past medical history remarkable for breast cancer currently on chemotherapy, diabetes who presents emergency Department co mplaining of a three-day history of vomiting as well as a one-day history of diarrhea. No known sick contacts at home. Denies any upper respiratory symptoms. Denies any chest pain or shortness breath. He endorses abdominal pain which is crampy and precedes the nausea, diarrhea. Denies any urinary complaints. States she last received chemo last week. Today is day 3-4 of symptoms. Uncertain what is causing her current symptoms. Is concerned she may be dehydrated. Denies any chest pain. His no other acute complaints at this time. Presents for further evaluation at this time. - Related Data Home Medications Medication Instructions Recorded Confirmed Simvastatin [Zocor] 40 mg PO HS 11/23/19 08/09/22 sitaGLIPtin PHOSPHATE [Januvia] 25 mg PO DAILY 11/23/19 08/09/22 Losartan [Cozaar] 25 mg PO DAILY 04/03/22 08/09/22 Trospium Chloride [Sanctura] 20 mg PO DAILY 04/03/22 08/09/22 Furosemide [Lasix] 40 mg PO DAILY 08/09/22 08/09/22 Ondansetron Odt [Zofran Odt] 4 mg PO Q8H PRN 08/09/22 08/09/22 Sertraline [Zoloft] 50 mg PO DAILY 08/09/22 08/09/22 Allergies Allergy/AdvReac Type Severity Reaction Status Date / Time morphine AdvReac Hallucinati Verified 08/09/22 11:47 ons Review of Systems ROS Statement: Those systems with pertinent positive or pertinent negative responses have been documented in the HPI. Review of Systems: CONST: Denies fever EYES: Denies blurry vision ENT: Denies nasal congestion C/V: Denies Chest pain RESP: Denies shortness of breath GI: Denies abdominal pain : Denies dysuria SKIN: Denies rash. MSK: Denies joint pain. NEURO: Denies headache ROS Other: All systems not noted in ROS Statement are negative. Past Medical History Past Medical History: Cancer, Diabetes Mellitus, Osteoarthritis (OA) Additional Past Medical History / Comment(s): vertigo. right breast CA History of Any Multi-Drug Resistant Organisms: None Reported Past Surgical History: Breast Surgery, Cholecystectomy, Orthopedic Surgery Additional Past Surgical History / Comment(s): eye surgery. Past Anesthesia/Blood Transfusion Reactions: No Reported Reaction Past Psychological History: No Psychological Hx Reported Smoking Status: Never smoker Past Alcohol Use History: Occasional Past Drug Use History: None Reported General Exam - General Exam Comments Initial Comments: General: Appears in no acute distress. HEAD: Normal with no signs of head trauma. EYES: PERRLA, EOMI, conjunctiva normal, no discharge. ENT: Hearing grossly intact, normal oropharynx. Dry mucous membranes. RESPIRATORY: Clear breath sounds bilaterally. No wheezes, rales, or rhonchi. C/V: Regular rate and rhythm. S1 and S2 auscultated, no edema, peripheral pulses 2+ and intact throughout ABD: Abd is soft, nontender, nondistended. No guarding. No peritoneal signs. No rebound tenderness. EXT: Normal range of motion, no obvious deformity SKIN: No rashes or lesions observed on exposed skin. NEURO: Alert and oriented 4. Limitations: no limitations Course Vital Signs 08/09/22 08/09/22 08/09/22 09:03 09:59 10:00 Temperature 97.7 F Pulse Rate 65 72 72 Respiratory 16 16 12 Rate Blood Pressure 155/70 138/48 134/71 O2 Sat by Pulse 99 96 97 Oximetry 08/09/22 08/09/22 08/09/22 10:30 11:00 11:30 Temperature Pulse Rate 72 74 73 Respiratory 16 16 16 Rate Blood Pressure 135/61 123/42 131/61 O2 Sat by Pulse 97 96 97 Oximetry Medical Decision Making - Medical Decision Making Based on the patient's presentation and physical exam, I'm concerned for dehydration and the patient. I rule out infectious etiology for her symptoms at this time. She'll be given IV fluids, as well as nausea medications. She no longer is at his gallbladder. We will obtain infectious labs. Vital signs within acceptable limits. No fever. She was in agreement this plan. Screening EKG shows no signs of acute ischemia. KUB x-ray as interpreted by me shows no acute process. Chest x-ray as interpreted by me shows no acute process. Patient's laboratory studies show a chronic anemia, chronic thrombocytopenia, as well as no neutropenia. Patient has a chronically elevated BUN and creatinine. Patient is Covid-positive. Remainder the labs unremarkable. Urinalysis is still pending at this time. I did discuss with her the results of her workup. As she appears dehydrated with nausea and vomiting and did recommend we have admit her for IV hydration. She expressed understanding. I did discuss the case with her admitting physician, Dr. Valerio who was in agreement this plan. He was in agreement with IV fluids, and likely will discharge patient home tomorrow with Paxlovid. Patient was admitted in stable condition. - Lab Data Result diagrams: 08/09/22 09:59 08/09/22 09:59 Lab Results 08/09/22 08/09/22 08/09/22 Range/Units 09:59 09:59 09:59 WBC 3.0 L (3.8-10.6) k/uL RBC 2.82 L (3.80-5.40) m/uL Hgb 8.6 L (11.4-16.0) gm/dL Hct 27.0 L (34.0-46.0) % MCV 95.6 (80.0-100.0) fL MCH 30.6 (25.0-35.0) pg MCHC 32.0 (31.0-37.0) g/dL RDW 14.6 (11.5-15.5) % Plt Count 98 L (150-450) k/uL MPV 10.9 Neutrophils % (Manual) 71 % Band Neuts % (Manual) 1 % Lymphocytes % (Manual) 6 % Monocytes % (Manual) 21 % Eosinophils % (Manual) 1 % Neutrophils # (Manual) 2.10 (1.3-7.7) k/uL Lymphocytes # (Manual) 0.18 L (1.0-4.8) k/uL Monocytes # (Manual) 0.63 (0-1.0) k/uL Eosinophils # (Manual) 0.03 (0-0.7) k/uL Nucleated RBCs 0 (0-0) /100 WBC Polychromasia Present PT 10.1 (9.0-12.0) sec INR 0.9 (<1.2) APTT 22.5 (22.0-30.0) sec Sodium 139 (137-145) mmol/L Potassium 4.3 (3.5-5.1) mmol/L Chloride 108 H (98-107) mmol/L Carbon Dioxide 22 (22-30) mmol/L Anion Gap 9 mmol/L BUN 38 H (7-17) mg/dL Creatinine 1.59 H (0.52-1.04) mg/dL Est GFR (CKD-EPI)AfAm 34 (>60 ml/min/1.73 sqM) Est GFR (CKD-EPI)NonAf 30 (>60 ml/min/1.73 sqM) Glucose 125 H (74-99) mg/dL Plasma Lactic Acid Kirill (0.7-2.0) mmol/L Calcium 8.7 (8.4-10.2) mg/dL Total Bilirubin 0.5 (0.2-1.3) mg/dL AST 21 (14-36) U/L ALT 15 (4-34) U/L Alkaline Phosphatase 89 (38-126) U/L Total Protein 5.9 L (6.3-8.2) g/dL Albumin 3.7 (3.5-5.0) g/dL Amylase 59 (30-110) U/L Lipase 92 (23-300) U/L Coronavirus (PCR) (Not Detectd) Influenza Type A RNA (Not Detectd) Influenza Type B (PCR) (Not Detectd) 08/09/22 08/09/22 08/09/22 Range/Units 09:59 09:59 09:59 WBC (3.8-10.6) k/uL RBC (3.80-5.40) m/uL Hgb (11.4-16.0) gm/dL Hct (34.0-46.0) % MCV (80.0-100.0) fL MCH (25.0-35.0) pg MCHC (31.0-37.0) g/dL RDW (11.5-15.5) % Plt Count (150-450) k/uL MPV Neutrophils % (Manual) % Band Neuts % (Manual) % Lymphocytes % (Manual) % Monocytes % (Manual) % Eosinophils % (Manual) % Neutrophils # (Manual) (1.3-7.7) k/uL Lymphocytes # (Manual) (1.0-4.8) k/uL Monocytes # (Manual) (0-1.0) k/uL Eosinophils # (Manual) (0-0.7) k/uL Nucleated RBCs (0-0) /100 WBC Polychromasia PT (9.0-12.0) sec INR (<1.2) APTT (22.0-30.0) sec Sodium (137-145) mmol/L Potassium (3.5-5.1) mmol/L Chloride (98-107) mmol/L Carbon Dioxide (22-30) mmol/L Anion Gap mmol/L BUN (7-17) mg/dL Creatinine (0.52-1.04) mg/dL Est GFR (CKD-EPI)AfAm (>60 ml/min/1.73 sqM) Est GFR (CKD-EPI)NonAf (>60 ml/min/1.73 sqM) Glucose (74-99) mg/dL Plasma Lactic Acid Kirill 1.1 (0.7-2.0) mmol/L Calcium (8.4-10.2) mg/dL Total Bilirubin (0.2-1.3) mg/dL AST (14-36) U/L ALT (4-34) U/L Alkaline Phosphatase (38-126) U/L Total Protein (6.3-8.2) g/dL Albumin (3.5-5.0) g/dL Amylase (30-110) U/L Lipase (23-300) U/L Coronavirus (PCR) Detected A (Not Detectd) Influenza Type A RNA Not Detected (Not Detectd) Influenza Type B (PCR) Not Detected (Not Detectd) - EKG Data -: EKG Interpreted by Me EKG Comments: 12-lead Electrocardiogram Interpretation Note EKG was reviewed and interpreted by myself. 12-lead ECG performed at 1009 is interpreted by me as revealing normal sinus rhythm at a rate of 67 beats per minute. Rosman is normal. NC interval is 172 ms, QRS duration is 89 ms, QTc is 400 ms.. Chronic T-wave inversion seen in lead III redemonstrated from EKG from June 2022. There were no acute ST or T wave abnormalities to suggest myocardial ischemia or injury. R wave progression across the precordium was sat isfactory. By my interpretation this EKG is non-diagnostic for acute ischemia. No acute changes from prior EKG from June 2022. Disposition Clinical Impression: Nausea and vomiting, Diarrhea, COVID-19 virus infection, Dehydration Disposition: ADMITTED IP TO THIS HOSP Condition: Stable Time of Disposition: 11:35
--- NOTE | 2022-08-09 12:30 | XR ---
EXAMINATION TYPE: XR chest 2V DATE OF EXAM: 08/09/2022 COMPARISON: Chest x-ray March 20, 2021 HISTORY: COVID positive. TECHNIQUE: Frontal and lateral views of the chest are obtained. FINDINGS: There is chronic type change bilaterally without suspicious new focal air space opacity, p leural effusion, or pneumothorax seen. The cardiac silhouette size is stable and within normal limit s. Atherosclerotic ectatic thoracic aorta redemonstrated. Cholecystectomy clips are redemonstrated. The osseous structures are intact. IMPRESSION: Chronic changes without new acute focal infiltrate . No significant change from prior.
[2022-08-09] MEDS ORDERED: DEXTROSE 50% SYRINGE 50 ML IVP PRN ×2 (14:50)
[2022-08-09 16:51] LABS: Glucose,Whole Blood 108 mg/dL (70-110)
[2022-08-09] MEDS: INSULIN ASPART (NovoLOG) 100 UNIT/ML VIAL SQ SCH ×2 (16:52→21:18)
[2022-08-09 20:34] LABS: Glucose,Whole Blood 160 mg/dL (70-110)
[2022-08-09] MEDS: ATORVASTATIN 20 MG TAB PO SCH (21:18)
[2022-08-09] MEDS ORDERED: ACETAMINOPHEN TAB 325 MG TAB PO PRN (21:25)
[2022-08-10 06:14] LABS: Glucose,Whole Blood 110 mg/dL (70-110)
[2022-08-10] MEDS: INSULIN ASPART (NovoLOG) 100 UNIT/ML VIAL SQ SCH ×4 (06:20→20:57)
[2022-08-10] MEDS ORDERED: ALBUTEROL HFA INHALER INHALATION PRN (08:53)
[2022-08-10] MEDS ORDERED: guaiFENesin SYRUP 100MG/5ML 200 MG/10 ML CUP PO PRN (08:55)
[2022-08-10] MEDS ORDERED: ENOXAPARIN 40 MG/0.4 ML SYRINGE SQ SCH (09:00)
[2022-08-10] MEDS: CHOLECALCIFEROL 25 MCG (1000 IU) TABLET PO SCH (09:53)
[2022-08-10] MEDS: dexAMETHasone 2 MG TAB PO SCH (09:53)
[2022-08-10] MEDS: SERTRALINE 50 MG TAB PO SCH (09:53)
[2022-08-10] MEDS: LOSARTAN 25 MG TAB PO SCH (09:53)
[2022-08-10] MEDS: ENOXAPARIN 30 MG/0.3 ML SYRINGE SQ SCH (09:53)
[2022-08-10] MEDS: ASCORBIC ACID 500 MG TAB PO SCH (09:53)
[2022-08-10] MEDS: PANTOPRAZOLE 40 MG TABLET PO SCH (09:53)
[2022-08-10] MEDS: LINAGLIPTIN 5 MG TABLET PO SCH (09:53)
[2022-08-10] MEDS: TROSPIUM CHLORIDE 20 MG TABLET PO SCH (09:53)
[2022-08-10] MEDS: ZINC SULFATE 220 MG CAP PO SCH (09:53)
[2022-08-10] MEDS: AZITHROMYCIN 250 MG TAB PO SCH (09:54)
--- NOTE | 2022-08-10 11:02 | P.HPIM ---
History of Present Illness H&P Date: 08/09/22 HISTORY OF PRESENT ILLNESS This is an 82-year-old female patient with past medical history of diabetes mellitus type 2, hypertension, hyperlipidemia, generalized osteoarthritis, right breast cancer currently on chemotherapy, vertigo. Patient complains of weakness, fatigue, general body aches, cough. She states she has felt so sick that she stayed in bed for the past 4 days. Her son has also had symptoms starting prior to her symptoms. She denied chest pain or shortness of breath. Patient is concern for dehydration and went to [facility] for evaluation Patient presented to [facility] emergency center and found to be afebrile, heart rate 65, blood pressure 155/70, pulse ox 99% on room air. EKG was a sinus rhythm with no acute ischemia. KUB shows no acute process. Chest x-ray shows no acute process. WBC 3.0, hemoglobin 8.6, platelet count 98. Sodium 139, potassium 4.3, chloride 108, CO2 22, BUN 38 and creatinine 1.59. Blood sugar 125. INR 0.9. Liver function tests within normal limits. Amylase and lipase normal. Lactic acid 1.1. Influenza a not detected. Influenza B not detected. Coronavirus PCR detected. Patient was admitted to the [facility] floor. REVIEW OF SYSTEMS Constitutional: No fever, no chills, no night sweats. No weight change. No weakness, fatigue or lethargy. No daytime sleepiness. EENT: No headache. No blurred vision or double vision, no loss of vision. No loss of Hearing, no ringing in the ears, no dizziness. No nasal drainage or congestion. No epistaxis. No sore throat. Lungs: No shortness of breath, cough, no sputum production. No wheezing. Cardiovascular: No chest pain, no lower extremity edema. No palpitations. No paroxysmal nocturnal dyspnea. No orthopnea. No lightheadedness or dizziness. No syncopal episodes. Abdominal: No abdominal pain. No nausea, vomiting. No diarrhea. No constipation. No bloody or tarry stools. No loss of appetite. Genitourinary: No dysuria, increased frequency, urgency. No urinary retention. Musculoskeletal: No myalgias. No muscle weakness, no gait dysfunction, no frequent falls. No back pain. No neck pain. Integumentary: No wounds, no lesions. No rash or pruritus. No unusual bruising. No change in hair or nails. Neurologic: No aphasia. No facial droop. No change in mentation. No head injury. No headache. No paralysis. No paresthesia. Psychiatric: No depression. No anxiety. No mood swings. Endocrine: No abnormal blood sugars. No weight change. No excessive sweating or thirst. No cold intolerance. MEDICAL HISTORY Diabetes mellitus type 2 Hypertension Hyperlipidemia Generalized osteoarthritis Right breast cancer currently on chemotherapy Generalized anxiety disorder Detrusor and sphincter dyssynergia Gastroesophageal reflux disease Chronic kidney disease stage IIIa SURGICAL HISTORY Right ankle surgery Left rotator cuff surgery Second toe right foot amputation Bladder suspension Cholecystectomy Colonoscopy 2013 Right lumpectomy 04/06/2022 SOCIAL HISTORY Patient was a smoker of a half pack per day for 1 year and quit smoking greater than 20 years ago. No alcohol abuse. No illicit drug use. FAMILY HISTORY Father at age 92 from old age and had AR at age 40. Mother at age 72 from CVA and AR. Patient has one brother of lung cancer age 61. Patient has one sister alive with history of colon cancer and diabetes mellitus type 2. Patient has 2 sons one has history of hypertension and hyperlipidemia. PHYSICAL EXAMINATION Gen: This is an 82-year-old female. She is resting in bed appears to be in no acute distress. HEENT: Head is atraumatic, normocephalic. Pupils equal, round. Sclerae is anicteric. Generalized alopecia. NECK: Supple. No JVD. No lymphadenopathy. No thyromegaly. LUNGS: Clear to auscultation. No wheezes or rhonchi. No intercostal retractions. HEART: First heart sound is depressed, second heart sound is normal, 2/6 syst olic ejection murmur at the left sternal border, no S3, no S4. ABDOMEN: Soft. Bowel sounds are present. No masses. No tenderness. EXTREMITIES: No pedal edema. No calf tenderness. Dorsalis pedis +2 bilaterally. NEUROLOGICAL: Patient is awake, alert and oriented x3. Cranial nerves 2 through 12 are grossly intact. ASSESSMENT AND PLAN 1. Generalized fatigue, cough and nausea secondary to Covid 19. Zofran as needed for nausea. Patient started on vitamin C, vitamin D, zinc, Lovenox 30 mg daily. 2. Pancytopenia secondary to breast cancer, chemotherapy. 3. Hypertension. Continue patient on losartan 25 mg daily. 4. Hyperlipidemia. Continue atorvastatin 20 mg at bedtime. 5. Right breast cancer currently on chemotherapy. 6. Diabetes mellitus type 2. Continue patient on Tradjenta 5 mg daily, NovoLog scale before meals and at bedtime. 7. Gastroesophageal reflux disease and GI prophylaxis. Patient on Protonix 40 mg daily. 8. DVT prophylaxis. Lovenox 30 mg subcu daily. Patient will be admitted to the hospital for a minimum of 2 night stay. DISCHARGE PLAN Most likely return home. Impression and plan of care have been directed as dictated by the signing physician. Melissa Odom nurse practitioner acting as scribe for signing physician. Past Medical History Past Medical History: Cancer, Diabetes Mellitus, Osteoarthritis (OA) Additional Past Medical History / Comment(s): vertigo. right breast CA History of Any Multi-Drug Resistant Organisms: None Reported Past Surgical History: Breast Surgery, Cholecystectomy, Orthopedic Surgery Additional Past Surgical History / Comment(s): eye surgery. Past Anesthesia/Blood Transfusion Reactions: No Reported Reaction Past Psychological History: No Psychological Hx Reported Smoking Status: Never smoker Past Alcohol Use History: Occasional Past Drug Use History: None Reported Medications and Allergies Home Medications Medication Instructions Recorded Confirmed Type Simvastatin [Zocor] 40 mg PO HS 11/23/19 08/09/22 History sitaGLIPtin PHOSPHATE [Januvia] 25 mg PO DAILY 11/23/19 08/09/22 History Losartan [Cozaar] 25 mg PO DAILY 04/03/22 08/09/22 History Trospium Chloride [Sanctura] 20 mg PO DAILY 04/03/22 08/09/22 History Furosemide [Lasix] 40 mg PO DAILY 08/09/22 08/09/22 History Ondansetron Odt [Zofran Odt] 4 mg PO Q8H PRN 08/09/22 08/09/22 History Sertraline [Zoloft] 50 mg PO DAILY 08/09/22 08/09/22 History Allergies Allergy/AdvReac Type Severity Reaction Status Date / Time morphine AdvReac Hallucinati Verified 08/09/22 11:47 ons Physical Exam Vitals: Vital Signs Temp Pulse Pulse Resp BP BP Pulse Ox 08/09/22 12:57 97.4 F L 74 17 137/64 98 08/09/22 11:30 73 16 131/61 97 08/09/22 11:00 74 16 123/42 96 08/09/22 10:30 72 16 135/61 97 08/09/22 10:00 72 12 134/71 97 08/09/22 09:59 72 16 138/48 96 08/09/22 09:03 97.7 F 65 16 155/70 99 Intake and Output 08/08/22 08/09/22 08/09/22 22:59 06:59 14:59 Other: Weight 63.503 kg Results CBC & Chem 7: 08/09/22 09:59 08/09/22 09:59 Labs: Abnormal Lab Results - Last 24 Hours (Table) 08/09/22 08/09/22 08/09/22 Range/Units 09:59 09:59 09:59 WBC 3.0 L (3.8-10.6) k/uL RBC 2.82 L (3.80-5.40) m/uL Hgb 8.6 L (11.4-16.0) gm/dL Hct 27.0 L (34.0-46.0) % Plt Count 98 L (150-450) k/uL Lymphocytes # (Manual) 0.18 L (1.0-4.8) k/uL Chloride 108 H (98-107) mmol/L BUN 38 H (7-17) mg/dL Creatinine 1.59 H (0.52-1.04) mg/dL Glucose 125 H (74-99) mg/dL Total Protein 5.9 L (6.3-8.2) g/dL Coronavirus (PCR) Detected A (Not Detectd) Thrombosis Risk Factor Assmnt - Choose All That Apply Each Risk Factor Represents 3 Points: Age 75 years or older Thrombosis Risk Factor Assessment Total Risk Factor Score: 3 Thrombosis Risk Factor Assessment Level: Moderate Risk
[2022-08-10 11:04] LABS: African American GFR (CKD) 36.4 (60.0-200.0); BUN/Creat Ratio 17.5 Ratio (12.00-20.00); Blood Urea Nitrogen 26.6 mg/dL (9.0-27.0); Calcium 8.5 mg/dL (8.7-10.3); Carbon Dioxide 21.8 mmol/L (20.0-27.5); Non-African American GFR(CKD) 31.4 (60.0-200.0); Potassium 4.7 mmol/L (3.5-5.5)
--- NOTE | 2022-08-10 11:10 | P.PN ---
Subjective Progress Note Date: 08/10/22 HISTORY OF PRESENT ILLNESS This is an 82-year-old female patient with past medical history of diabetes mellitus type 2, hypertension, hyperlipidemia, generalized osteoarthritis, right breast cancer currently on chemotherapy, vertigo. Patient complains of weakness, fatigue, general body aches, cough. She states she has felt so sick that she stayed in bed for the past 4 days. Her son has also had symptoms starting prior to her symptoms. She denied chest pain or shortness of breath. Patient is concern for dehydration and went to [facility] for evaluation Patient presented to [facility] emergency center and found to be afebrile, heart rate 65, blood pressure 155/70, pulse ox 99% on room air. EKG was a sinus rhythm with no acute ischemia. KUB shows no acute process. Chest x-ray shows no acute process. WBC 3.0, hemoglobin 8.6, platelet count 98. Sodium 139, potassium 4.3, chloride 108, CO2 22, BUN 38 and creatinine 1.59. Blood sugar 125. INR 0.9. Liver function tests within normal limits. Amylase and lipase normal. Lactic acid 1.1. Influenza a not detected. Influenza B not detected. Coronavirus PCR detected. Patient was [facility] floor. 08/10: Patient states that she did not sleep well last night. She is noted to have a cough with some sputum. No lower extremity edema. Nausea seems to be improved. Add albuterol inhaler, , azithromycin and dexamethasone today. Physical therapy consult added. She has been afebrile, heart rate 58, blood pressure 130/50, pulse ox 97% on room air. Blood Glucose Running between 108 160. Morning lab work is pending. Anticipate probable discharge home tomorrow. REVIEW OF SYSTEMS Constitutional: No fever, no chills, no night sweats. No weight change. No weakness, fatigue or lethargy. No daytime sleepiness. EENT: No headache. No blurred vision or double vision, no loss of vision. No loss of Hearing, no ringing in the ears, no dizziness. No nasal drainage or congestion. No epistaxis. No sore throat. Lungs: No shortness of breath, reports cough, noted sputum production. No wheezing. Cardiovascular: No chest pain, no lower extremity edema. No palpitations. No paroxysmal nocturnal dyspnea. No orthopnea. No lightheadedness or dizziness. No syncopal episodes. Abdominal: No abdominal pain. No nausea, vomiting. No diarrhea. No constipation. No bloody or tarry stools. No loss of appetite. Genitourinary: No dysuria, increased frequency, urgency. No urinary retention. Musculoskeletal: No myalgias. No muscle weakness, no gait dysfunction, no frequent falls. No back pain. No neck pain. Integumentary: No wounds, no lesions. No rash or pruritus. No unusual bruising. No change in hair or nails. Neurologic: No aphasia. No facial droop. No change in mentation. No head injury. No headache. No paralysis. No paresthesia. Psychiatric: No depression. No anxiety. No mood swings. Endocrine: No abnormal blood sugars. No weight change. No excessive sweating or thirst. No cold intolerance. PHYSICAL EXAMINATION Gen: This is an 82-year-old female. She is resting in bed appears to be in no acute distress. HEENT: Head is atraumatic, normocephalic. Pupils equal, round. Sclerae is anicteric. Generalized alopecia. NECK: Supple. No JVD. No lymphadenopathy. No thyromegaly. LUNGS: Clear to auscultation. Few scattered rhonchi. No intercostal retractions. HEART: First heart sound is depressed, second heart sound is normal, 2/6 systolic ejection murmur at the left sternal border, no S3, no S4. ABDOMEN: Soft. Bowel sounds are present. No masses. No tenderness. EXTREMITIES: No pedal edema. No calf tenderness. Dorsalis pedis +2 bilaterally. NEUROLOGICAL: Patient is awake, alert and oriented x3. Cranial nerves 2 through 12 are grossly intact. ASSESSMENT AND PLAN 1. Generalized fatigue, cough and nausea secondary to Covid 19. Zofran as needed for nausea. Patient started on vitamin C, vitamin D, zinc, Lovenox 30 mg daily. Add azithromycin, dexamethasone and albuterol inhaler. 2. Pancytopenia secondary to breast cancer, chemotherapy. 3. Hypertension. Continue patient on losartan 25 mg daily. 4. Hyperlipidemia. Continue atorvastatin 20 mg at bedtime. 5. Right breast cancer currently on chemotherapy. 6. Diabetes mellitus type 2. Continue patient on Tradjenta 5 mg daily, NovoLog scale before meals and at bedtime. 7. Gastroesophageal reflux disease and GI prophylaxis. Patient on Protonix 40 mg daily. 8. DVT prophylaxis. Lovenox 30 mg subcu daily. DISCHARGE PLAN Most likely return home. Consult with physical therapy added. Impression and plan of care have been directed as dictated by the signing physician. Melissa Odom nurse practitioner acting as scribe for signing physician. Objective - Vital Signs Vital signs: Vital Signs Temp 97.5 F L 08/10/22 08:00 Pulse 58 L 08/10/22 08:00 Resp 18 08/10/22 08:00 BP 134/53 08/10/22 08:00 Pulse Ox 99 08/10/22 08:00 FiO2 Intake & Output 08/09/22 08/10/22 08/10/22 18:59 06:59 18:59 Weight 63.503 kg Other: Voiding Method Toilet # Voids 1 3 - Labs CBC & Chem 7: 08/09/22 09:59 08/09/22 09:59 Labs: Abnormal Lab Results - Last 24 Hours (Table) 08/09/22 08/09/22 08/09/22 Range/Units 09:59 09:59 09:59 WBC 3.0 L (3.8-10.6) k/uL RBC 2.82 L (3.80-5.40) m/uL Hgb 8.6 L (11.4-16.0) gm/dL Hct 27.0 L (34.0-46.0) % Plt Count 98 L (150-450) k/uL Lymphocytes # (Manual) 0.18 L (1.0-4.8) k/uL Chloride 108 H (98-107) mmol/L BUN 38 H (7-17) mg/dL Creatinine 1.59 H (0.52-1.04) mg/dL Glucose 125 H (74-99) mg/dL POC Glucose (mg/dL) (70-110) mg/dL Hemoglobin A1c (0.0-6.0) % Total Protein 5.9 L (6.3-8.2) g/dL Coronavirus (PCR) Detected A (Not Detectd) 08/09/22 08/09/22 Range/Units 09:59 20:26 WBC (3.8-10.6) k/uL RBC (3.80-5.40) m/uL Hgb (11.4-16.0) gm/dL Hct (34.0-46.0) % Plt Count (150-450) k/uL Lymphocytes # (Manual) (1.0-4.8) k/uL Chloride (98-107) mmol/L BUN (7-17) mg/dL Creatinine (0.52-1.04) mg/dL Glucose (74-99) mg/dL POC Glucose (mg/dL) 160 H (70-110) mg/dL Hemoglobin A1c 6.9 H (0.0-6.0) % Total Protein (6.3-8.2) g/dL Coronavirus (PCR) (Not Detectd)
[2022-08-10 11:35] LABS: Glucose,Whole Blood 109 mg/dL (70-110)
[2022-08-10 11:41] LABS: Basophils # (M) 0 X 10*3/uL (0.00-0.10); Eosinophils # (M) 0.27 X 10*3/uL (0.04-0.35); HGB 7.7 g/dL (12.0-15.0); Lymphocytes # (M) 0.45 X 10*3/uL (0.90-5.00); MCH 30.9 pg (27.0-32.0); MCHC 30.8 g/dL (32.0-37.0); MCV 100.4 fL (80.0-97.0); Mean Platelet Volume 12.6 fL (9.5-12.2); Monocytes # (M) 0.72 X 10*3/uL (0.20-1.00); Myelocytes % 1 % (0-0); NRBC Per 100 WBC 0.4 /100 WBCS (0.0-0.0); Neutrophils # (M) 7.47 X 10*3/uL (2.00-8.90); Neutrophils % (M) 83 %; Platelet Count 93 X 10*3/uL (140-440); RBC 2.49 X 10*6/uL (4.10-5.20); RDW 15.4 % (11.5-14.5); Rouleaux PRESENT
[2022-08-10 16:53] LABS: Glucose,Whole Blood 160 mg/dL (70-110)
[2022-08-10] MEDS: SODIUM CHLORIDE 0.9% 1,000 ML IV SCH (17:01)
[2022-08-10 20:24] LABS: Glucose,Whole Blood 105 mg/dL (70-110)
[2022-08-10] MEDS: ATORVASTATIN 20 MG TAB PO SCH (21:34)
[2022-08-11 03:03] VITALS: RESP 18
[2022-08-11] MEDS: SODIUM CHLORIDE 0.9% 1,000 ML IV SCH ×2 (04:53→12:35)
[2022-08-11 06:20] LABS: Glucose,Whole Blood 92 mg/dL (70-110)
[2022-08-11] MEDS: INSULIN ASPART (NovoLOG) 100 UNIT/ML VIAL SQ SCH ×2 (06:21→11:30)
--- NOTE | 2022-08-11 08:16 | P.DS ---
Providers Date of admission: 08/09/22 11:56 Expected date of discharge: 08/11/22 Attending physician: Shlomo Valerio Primary care physician: Shlomo Valerio [facility] Course: HISTORY OF PRESENT ILLNESS This is an 82-year-old female patient with past medical history of diabetes mellitus type 2, hypertension, hyperlipidemia, generalized osteoarthritis, right breast cancer currently on chemotherapy, vertigo. Patient complains of weakness, fatigue, general body aches, cough. She states she has felt so sick that she stayed in bed for the past 4 days. Her son has also had symptoms starting prior to her symptoms. She denied chest pain or shortness of breath. Patient is concern for dehydration and went to [facility] for evaluation Patient presented to [facility] emergency center and found to be afebrile, heart rate 65, blood pressure 155/70, pulse ox 99% on room air. EKG was a sinus rhythm with no acute ischemia. KUB shows no acute process. Chest x-ray shows no acute process. WBC 3.0, hemoglobin 8.6, platelet count 98. Sodium 139, potassium 4.3, chloride 108, CO2 22, BUN 38 and creatinine 1.59. Blood sugar 125. INR 0.9. Liver function tests within normal limits. Amylase and lipase normal. Lactic acid 1.1. Influenza a not detected. Influenza B not detected. Coronavirus PCR detected. Patient was admitted to the [facility] floor. 08/10: Patient states that she did not sleep well last night. She is noted to have a cough with some sputum. No lower extremity edema. Nausea seems to be improved. Add albuterol inhaler, , azithromycin and dexamethasone today. Physical therapy consult added. She has been afebrile, heart rate 58, blood pressure 130/50, pulse ox 97% on room air. Blood Glucose Running between 108 160. Morning lab work is pending. Anticipate probable discharge home tomorrow. 08/11: Patient remains afebrile, heart rate 60, blood pressure 122/65, pulse ox 90% on room air. Patient had MRI uneventful night. Yesterday, he she was not seen by physical therapy due to nausea. She did meet with social and political studies professor and plan is to return home with her son Aiden. Cough seems to be improved today as well as nausea is improved. Discussed with patient the need to postpone chemotherapy due to Covid. She states that she had an appointment today with Dr. Matias. Patient will be discharged home today in stable condition when she is evaluated by physical therapy and at no risk for falls. DISCHARGE DIAGNOSES 1. Generalized fatigue, cough and nausea secondary to Covid 19. 2. Pancytopenia secondary to breast cancer, chemotherapy. 3. Hypertension. 4. Hyperlipidemia. 5. Right breast cancer currently on chemotherapy. 6. Diabetes mellitus type 2. 7. Gastroesophageal reflux disease. DISCHARGE PLAN Most likely return home. Consult with physical therapy added. Greater than 35 minutes was utilized and coordinating patient's discharge. Impression and plan of care have been directed as dictated by the signing physician. Melissa Odom nurse practitioner acting as scribe for signing physician. Patient Condition at Discharge: Stable Plan - Discharge Summary Discharge Rx Participant: No New Discharge Prescriptions: New Pantoprazole [Protonix] 40 mg PO AC-BRKFST #30 tab guaiFENesin SYRUP 100MG/5ML [Robitussin] 200 mg PO Q6HR PRN ml PRN Reason: Cough Albuterol Inhaler [Ventolin Hfa Inhaler] 2 puff INHALATION RT-QID PRN #1 each PRN Reason: Shortness Of Breath Or Wheezing Ascorbic Acid [Vitamin C] 500 mg PO DAILY tab Cholecalciferol [Vitamin D3 (25 Mcg = 1000 Iu)] 25 mcg PO DAILY tab Zinc Sulfate [Orazinc] 220 mg PO DAILY cap Nirmatrelvir/Ritonavir [Paxlovid 150-100 mg Pack (Eua)] 1 each PO BID #30 each Azithromycin [Zithromax] 250 mg PO DAILY #5 tab Continue Simvastatin [Zocor] 40 mg PO HS sitaGLIPtin PHOSPHATE [Januvia] 25 mg PO DAILY Trospium Chloride [Sanctura] 20 mg PO DAILY Sertraline [Zoloft] 50 mg PO DAILY Ondansetron Odt [Zofran ODT] 4 mg PO Q8H PRN PRN Reason: Nausea Furosemide [Lasix] 40 mg PO DAILY Losartan [Cozaar] 25 mg PO DAILY Discharge Medication List Simvastatin [Zocor] 40 mg PO HS 11/23/19 [History] sitaGLIPtin PHOSPHATE [Januvia] 25 mg PO DAILY 11/23/19 [History] Losartan [Cozaar] 25 mg PO DAILY 04/03/22 [History] Trospium Chloride [Sanctura] 20 mg PO DAILY 04/03/22 [History] Furosemide [Lasix] 40 mg PO DAILY 08/09/22 [History] Ondansetron Odt [Zofran ODT] 4 mg PO Q8H PRN 08/09/22 [History] Sertraline [Zoloft] 50 mg PO DAILY 08/09/22 [History] Albuterol Inhaler [Ventolin Hfa Inhaler] 2 puff INHALATION RT-QID PRN #1 each 08/11/22 [Rx] Ascorbic Acid [Vitamin C] 500 mg PO DAILY tab 08/11/22 [Rx] Azithromycin [Zithromax] 250 mg PO DAILY #5 tab 08/11/22 [Rx] Cholecalciferol [Vitamin D3 (25 Mcg = 1000 Iu)] 25 mcg PO DAILY tab 08/11/22 [Rx] Nirmatrelvir/Ritonavir [Paxlovid 150-100 mg Pack (Eua)] 1 each PO BID #30 each 08/11/22 [Rx] Pantoprazole [Protonix] 40 mg PO AC-BRKFST #30 tab 08/11/22 [Rx] Zinc Sulfate [Orazinc] 220 mg PO DAILY cap 08/11/22 [Rx] guaiFENesin SYRUP 100MG/5ML [Robitussin] 200 mg PO Q6HR PRN ml 08/11/22 [Rx] Follow up Appointment(s)/Referral(s): Shlomo Valerio MD [Primary Care Provider] - 1 Week Discharge Disposition: HOME SELF-CARE
[2022-08-11] MEDS: dexAMETHasone 2 MG TAB PO SCH (09:30)
[2022-08-11] MEDS: AZITHROMYCIN 250 MG TAB PO SCH (09:30)
[2022-08-11] MEDS: ASCORBIC ACID 500 MG TAB PO SCH (09:31)
[2022-08-11] MEDS: PANTOPRAZOLE 40 MG TABLET PO SCH (09:31)
[2022-08-11] MEDS: ENOXAPARIN 30 MG/0.3 ML SYRINGE SQ SCH (09:31)
[2022-08-11] MEDS: LOSARTAN 25 MG TAB PO SCH (09:31)
[2022-08-11] MEDS: CHOLECALCIFEROL 25 MCG (1000 IU) TABLET PO SCH (09:31)
[2022-08-11] MEDS: LINAGLIPTIN 5 MG TABLET PO SCH (09:31)
[2022-08-11] MEDS: ZINC SULFATE 220 MG CAP PO SCH (09:31)
[2022-08-11] MEDS: TROSPIUM CHLORIDE 20 MG TABLET PO SCH (09:31)
[2022-08-11] MEDS: SERTRALINE 50 MG TAB PO SCH (09:31)
[2022-08-11 11:15] LABS: Glucose,Whole Blood 97 mg/dL (70-110)
[2022-08-11 15:55] VITALS: BP 129/72; PULSE 83; TEMP 97.8
== END 2022-08-11 15:49 | disposition home or self-care (01) | DRG 177 ==
LOC: EC 09:01 → 4SSUR 11:56
PROVIDERS: ADMIT Internal Medicine; ATTEND Internal Medicine
DX: U07.1 COVID-19 (principal); D61.810 Antineoplastic chemotherapy induced pancytopenia; C50.911 Malignant neoplasm of unspecified site of right female breast; E11.9 Type 2 diabetes mellitus without complications; E78.5 Hyperlipidemia, unspecified; E86.0 Dehydration; I10 Essential (primary) hypertension; R19.7 Diarrhea, unspecified; K21.9 Gastro-esophageal reflux disease without esophagitis; M15.9 Polyosteoarthritis, unspecified; T45.1X5A Adverse effect of antineoplastic and immunosuppressive drugs, initial encounter; Z79.84 Long term (current) use of oral hypoglycemic drugs; Z79.899 Other long term (current) drug therapy; Z80.1 Family history of malignant neoplasm of trachea, bronchus and lung; Z82.3 Family history of stroke; Z82.49 Family history of ischemic heart disease and other diseases of the circulatory system; Z83.3 Family history of diabetes mellitus; Z87.891 Personal history of nicotine dependence; Z28.310 Unvaccinated for COVID-19
CPT/HCPCS: 36415; 71046; 74018; 80048; 80053; 82150; 83036; 83605; 83690; 85025; 85610; 85730; 87502; 87635; 93005; 96361; 96374; 96375; 99285

== ENCOUNTER 2022-08-31 07:58 | Emergency (ER) | payer MEDICARE ==
[2022-08-31 08:12] VITALS: RESP 18; TEMP 98.2
[2022-08-31] MEDS ORDERED: SODIUM CHLORIDE 0.9% 1,000 ML IV STA (08:14)
[2022-08-31] MEDS ORDERED: ONDANSETRON 4 MG/2 ML VIAL IVP STA (08:14)
[2022-08-31] MEDS ORDERED: DEXAMETHASONE SOD PHOSPHATE 10 MG/ML 1 ML VIAL IVP STA (08:15)
--- NOTE | 2022-08-31 08:53 | XR ---
EXAMINATION TYPE: XR chest 2V DATE OF EXAM: 08/31/2022 COMPARISON: 08/09/2022 HISTORY: Cough TECHNIQUE: Frontal and lateral views of the chest are obtained. FINDINGS: There is no focal air space opacity, pleural effusion, or pneumothorax seen. The cardiac silhouette size is within normal limits. The osseous structures are intact. IMPRESSION: No acute cardiopulmonary process.
[2022-08-31 09:01] LABS: Albumin 3.3 g/dL (3.5-5.0); Calcium 8.3 mg/dL (8.4-10.2); Total Bilirubin 0.4 mg/dL (0.2-1.3); Total Protein 5.5 g/dL (6.3-8.2)
[2022-08-31 09:17] LABS: HCT 26.3 % (34.0-46.0); HGB 8.4 gm/dL (11.4-16.0); Hypochromasia Slight; MCH 31.4 pg (25.0-35.0); MCHC 31.8 g/dL (31.0-37.0); MCV 98.6 fL (80.0-100.0); Macrocytosis Slight; Mean Platelet Volume 10.8; Platelet Count 123 k/uL (150-450); RBC 2.66 m/uL (3.80-5.40); RDW 15.5 % (11.5-15.5); WBC 4.2 k/uL (3.8-10.6)
--- NOTE | 2022-08-31 09:18 | ED ---
Nausea/Vomiting/Diarrhea HPI - General Chief complaint: Nausea/Vomiting/Diarrhea Stated complaint: Abd Pain, Vomiting Time Seen by Provider: 08/31/22 08:14 Source: patient, family, RN notes reviewed Mode of arrival: wheelchair Limitations: no limitations - History of Present Illness Initial comments: This is an 82-year-old female who presents to the emergency department for nausea and vomiting. Symptoms have been present over the last 2-3 days. She is being treated for breast cancer and had her third round of chemotherapy 8 days ago. Currently getting chemotherapy every 3 weeks. Her oncologist is Dr. Matias. She has not had symptoms of nausea like this in the past with chemotherapy. She took Zofran at home with no relief. Also has associated diarrhea and has no relief with immodium. Additionally, she has had a cough over the last 2 days. Denies any sick contacts, fevers, or chills. She is also not had any chest pain or shortness of breath with this. She did have COVID earlier this month. Denies any fevers, chills, sore throat, dyspnea, chest pain, palpitations, back pain, or headaches. MD complaint: nausea, vomiting, diarrhea Onset/Timin -: days(s) Associated Abdominal Pain: Yes Location: diffuse Quality: cramping - Related Data Home Medications Medication Instructions Recorded Confirmed Simvastatin [Zocor] 40 mg PO HS 11/23/19 08/31/22 sitaGLIPtin PHOSPHATE [Januvia] 25 mg PO DAILY 11/23/19 08/31/22 Losartan [Cozaar] 25 mg PO DAILY 04/03/22 08/31/22 Trospium Chloride [Sanctura] 20 mg PO DAILY 04/03/22 08/31/22 Furosemide [Lasix] 40 mg PO DAILY 08/09/22 08/31/22 Ondansetron Odt [Zofran ODT] 4 mg PO Q8H PRN 08/09/22 08/31/22 Sertraline [Zoloft] 50 mg PO DAILY 08/09/22 08/31/22 Previous Rx's Medication Instructions Recorded Albuterol Inhaler [Ventolin Hfa 2 puff INHALATION RT-QID PRN #1 08/11/22 Inhaler] each Ascorbic Acid [Vitamin C] 500 mg PO DAILY tab 08/11/22 Cholecalciferol [Vitamin D3 (25 25 mcg PO DAILY tab 08/11/22 Mcg = 1000 Iu)] Pantoprazole [Protonix] 40 mg PO AC-BRKFST #30 tab 08/11/22 Zinc Sulfate [Orazinc] 220 mg PO DAILY cap 08/11/22 guaiFENesin SYRUP 100MG/5ML 200 mg PO Q6HR PRN ml 08/11/22 [Robitussin] Metoclopramide [Reglan] 10 mg PO QID PRN #15 tab 08/31/22 Allergies Allergy/AdvReac Type Severity Reaction Status Date / Time morphine AdvReac Hallucinati Verified 08/31/22 11:34 ons Review of Systems ROS Statement: Those systems with pertinent positive or pertinent negative responses have been documented in the HPI. ROS Other: All systems not noted in ROS Statement are negative. Past Medical History Past Medical History: Cancer, Diabetes Mellitus, Osteoarthritis (OA) Additional Past Medical History / Comment(s): vertigo. right breast CA History of Any Multi-Drug Resistant Organisms: None Reported Past Surgical History: Breast Surgery, Cholecystectomy, Orthopedic Surgery Additional Past Surgical History / Comment(s): eye surgery. Past Anesthesia/Blood Transfusion Reactions: No Reported Reaction Past Psychological History: No Psychological Hx Reported Smoking Status: Never smoker Past Alcohol Use History: Occasional Past Drug Use History: None Reported General Exam Limitations: no limitations General appearance: alert, in no apparent distress Head exam: Present: atraumatic, normocephalic, normal inspection Respiratory exam: Present: normal lung sounds bilaterally. Absent: respiratory distress, wheezes, rales, rhonchi, stridor Cardiovascular Exam: Present: regular rate, normal rhythm, normal heart sounds. Absent: systolic murmur, diastolic murmur, rubs, gallop, clicks GI/Abdominal exam: Present: soft, hyperactive bowel sounds. Absent: distended, tenderness, guarding, rebound, rigid Neurological exam: Present: alert, oriented X3, CN II-XII intact Psychiatric exam: Present: normal affect, normal mood Skin exam: Present: warm, dry, intact, normal color. Absent: rash Course Vital Signs 08/31/22 08/31/22 08/31/22 08:10 09:42 11:56 Temperature 98.2 F Pulse Rate 88 74 72 Respiratory 18 18 18 Rate Blood Pressure 113/50 112/66 122/84 O2 Sat by Pulse 93 L 97 96 Oximetry Medical Decision Making - Medical Decision Making This is an 82-year-old female who presents to the emergency department for nausea and vomiting. Lab work obtained and found to be nonactionable and consistent with prior values. Chest x-ray obtained, and on my interpretation there are no localized consolidations or infiltrates. COVID and influenza testing are negative. She was unable to provide a urine sample prior to discharge. She was treated with IV fluids, Zofran, and Decadron, which markedly improved her symptoms. Starter pack for Lomotil provided, advised that if the Imodium continues to be ineffective she can try taking this. Advised that it can be sedating, and she should avoid driving or operating machinery when taking this. Prescription for Reglan provided, advised that she can alternate this with the Zofran if the Zofran is not effective on its own. Advised she remain well-hydrated and slowly advance her diet as tolerated. Return precautions reviewed in depth, the patient is instructed to return to the emergency department with any new, worsening, or concerning symptoms. Patient verbalized understanding. This case was discussed in detail with the attending ED physician. Presentation, findings, and treatment plan discussed in detail as well. - Lab Data Result diagrams: 08/31/22 08:38 08/31/22 08:38 Lab Results 08/31/22 08/31/22 08/31/22 Range/Units 08:38 08:38 08:38 WBC 4.2 (3.8-10.6) k/uL RBC 2.66 L (3.80-5.40) m/uL Hgb 8.4 L (11.4-16.0) gm/dL Hct 26.3 L (34.0-46.0) % MCV 98.6 (80.0-100.0) fL MCH 31.4 (25.0-35.0) pg MCHC 31.8 (31.0-37.0) g/dL RDW 15.5 (11.5-15.5) % Plt Count 123 L (150-450) k/uL MPV 10.8 Neutrophils % (Manual) 55 % Band Neuts % (Manual) 4 % Lymphocytes % (Manual) 12 % Monocytes % (Manual) 23 % Eosinophils % (Manual) 4 % Basophils % (Manual) 1 % Metamyelocytes % 2 % Myelocytes % 1 % Neutrophils # (Manual) 2.40 (1.3-7.7) k/uL Lymphocytes # (Manual) 0.50 L (1.0-4.8) k/uL Monocytes # (Manual) 0.97 (0-1.0) k/uL Eosinophils # (Manual) 0.17 (0-0.7) k/uL Basophils # (Manual) 0.04 (0-0.2) k/uL Metamyelocytes # (Man) 0.08 H (0) k/uL Myelocytes # (Manual) 0.04 H (0) k/uL Nucleated RBCs 0 (0-0) /100 WBC Manual Slide Review Performed Hypochromasia Slight Macrocytosis Slight Sodium 141 (137-145) mmol/L Potassium 4.0 (3.5-5.1) mmol/L Chloride 113 H (98-107) mmol/L Carbon Dioxide 18 L (22-30) mmol/L Anion Gap 10 mmol/L BUN 29 H (7-17) mg/dL Creatinine 1.60 H (0.52-1.04) mg/dL Est GFR (CKD-EPI)AfAm 34 (>60 ml/min/1.73 sqM) Est GFR (CKD-EPI)NonAf 30 (>60 ml/min/1.73 sqM) Glucose 110 H (74-99) mg/dL Calcium 8.3 L (8.4-10.2) mg/dL Total Bilirubin 0.4 (0.2-1.3) mg/dL AST 19 (14-36) U/L ALT 16 (4-34) U/L Alkaline Phosphatase 75 (38-126) U/L Total Protein 5.5 L (6.3-8.2) g/dL Albumin 3.3 L (3.5-5.0) g/dL Amylase 41 (30-110) U/L Lipase 33 (23-300) U/L Coronavirus (PCR) (Not Detectd) Influenza Type A RNA Not Detected (Not Detectd) Influenza Type B (PCR) Not Detected (Not Detectd) 08/31/22 Range/Units 08:38 WBC (3.8-10.6) k/uL RBC (3.80-5.40) m/uL Hgb (11.4-16.0) gm/dL Hct (34.0-46.0) % MCV (80.0-100.0) fL MCH (25.0-35.0) pg MCHC (31.0-37.0) g/dL RDW (11.5-15.5) % Plt Count (150-450) k/uL MPV Neutrophils % (Manual) % Band Neuts % (Manual) % Lymphocytes % (Manual) % Monocytes % (Manual) % Eosinophils % (Manual) % Basophils % (Manual) % Metamyelocytes % % Myelocytes % % Neutrophils # (Manual) (1.3-7.7) k/uL Lymphocytes # (Manual) (1.0-4.8) k/uL Monocytes # (Manual) (0-1.0) k/uL Eosinophils # (Manual) (0-0.7) k/uL Basophils # (Manual) (0-0.2) k/uL Metamyelocytes # (Man) (0) k/uL Myelocytes # (Manual) (0) k/uL Nucleated RBCs (0-0) /100 WBC Manual Slide Review Hypochromasia Macrocytosis Sodium (137-145) mmol/L Potassium (3.5-5.1) mmol/L Chloride (98-107) mmol/L Carbon Dioxide (22-30) mmol/L Anion Gap mmol/L BUN (7-17) mg/dL Creatinine (0.52-1.04) mg/dL Est GFR (CKD-EPI)AfAm (>60 ml/min/1.73 sqM) Est GFR (CKD-EPI)NonAf (>60 ml/min/1.73 sqM) Glucose (74-99) mg/dL Calcium (8.4-10.2) mg/dL Total Bilirubin (0.2-1.3) mg/dL AST (14-36) U/L ALT (4-34) U/L Alkaline Phosphatase (38-126) U/L Total Protein (6.3-8.2) g/dL Albumin (3.5-5.0) g/dL Amylase (30-110) U/L Lipase (23-300) U/L Coronavirus (PCR) Not Detected (Not Detectd) Influenza Type A RNA (Not Detectd) Influenza Type B (PCR) (Not Detectd) - Radiology Data Radiology results: report reviewed, image reviewed Disposition Clinical Impression: Nausea and vomiting, Diarrhea Disposition: HOME SELF-CARE Instructions (If sedation given, give patient instructions): Acute Nausea and Vomiting (ED), Acute Diarrhea (ED), Chemo Induced Nausea and Vomiting (ED) Additional Instructions: Return to the emergency department with any new, worsening, or concerning symptoms. You can take the Reglan up to every 6 hours as needed for nausea and vomiting. You can also alternate with the Reglan and Zofran if needed for the nausea and vomiting. Slowly advance your diet as tolerated and make sure that you remain well-hydrated. Follow up with your primary care provider in 1-2 days. Prescriptions: Metoclopramide [Reglan] 10 mg PO QID PRN #15 tab PRN Reason: Nausea And Vomiting Is patient prescribed a controlled substance at d/c from ED?: No Referrals: Shlomo Valerio MD [Primary Care Provider] - 1-2 days
[2022-08-31 10:08] LABS: Band Neutrophils % 4 %; Basophils # (M) 0.04 k/uL (0-0.2); Eosinophils # (M) 0.17 k/uL (0-0.7); Metamyelocytes # (M) 0.08 k/uL (0); Metamyelocytes % 2 %; Monocytes # (M) 0.97 k/uL (0-1.0); Myelocytes # (M) 0.04 k/uL (0); Myelocytes % 1 %; Neutrophils % (M) 55 %; Nucleated Red Blood Cells 0 /100 WBC (0-0); Total Cells Counted 200
[2022-08-31] MEDS ORDERED: DIPHENOX-ATROP STARTER PACK 8 TAB BTL PO STA (11:14)
[2022-08-31 11:56] VITALS: BP 122/84; PULSE 72
== END 2022-08-31 12:00 | disposition home or self-care (01) ==
LOC: EC 07:58
DX: R11.2 Nausea with vomiting, unspecified (principal); R19.7 Diarrhea, unspecified; C50.911 Malignant neoplasm of unspecified site of right female breast; E11.9 Type 2 diabetes mellitus without complications; Z90.49 Acquired absence of other specified parts of digestive tract; Z20.822 Contact with and (suspected) exposure to COVID-19; Z88.5 Allergy status to narcotic agent; Z79.84 Long term (current) use of oral hypoglycemic drugs
CPT/HCPCS: 36415; 80053; 82150; 83690; 85025; 87502; 87635; 71046; 99284; 96374; 96375; 96361; J1100; J2405

== ENCOUNTER → 2022-09-21 | Outpatient (CLI) | payer MEDICARE ==
--- NOTE | 2022-09-21 12:47 | USB ---
Reason for Exam: Follow-up at short interval from prior study. Patient History: Menarche at age 12. First Full-Term at age 22. Hysterectomy at age 63. Postmenopausal. Breast cancer, right, age 81. 04/05/2022, Lumpectomy on the Right side. 04/05/2022, Malignant US breast localization RT on the right side. 04/05/2022, Malignant US breast surgical speciment RT on the right side. 1990, Benign Excisional Biopsy on the left side. 1989, Benign Excisional Biopsy on the left side. 02/06/2022, Malignant Core Biopsy on the right side. Prior Study Comparison: 01/09/2022 Bilateral Diagnostic Mammogram, [facility]. 02/06/2022 Right Diagnostic Mammogram, [facility]. 04/05/2022 Right MG diagnostic mammo RT wo CAD, [facility]. Findings: The whole breast of the right breast, the axilla of the right breast and the retroareolar of the right breast were scanned. No solid lesions are evident. Previous abnormal hypoechoic area not identified. There is a small hypoechoic area at the surgery site which may be a small seroma or hematoma. Left axillary lymph node is present without thickened cortex by measurement criteria.. Overall Assessment: Benign, BI-RAD 2 Management: Diagnostic Mammogram of the right breast. A clinical breast exam by your physician is recommended on an annual basis and results should be correlated with mammographic findings. This exam should not preclude additional follow-up of suspicious palpable abnormalities. ??Results were given to the patient verbally at the time of exam. Electronically signed and approved by: Augie Farias D.O. Radiologis
[2022-09-21 13:00] VITALS: BP 136/67; PULSE 66; RESP 12; TEMP 97.6
--- NOTE | 2022-09-21 13:27 | P.PN ---
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 The sentinel node biopsy did not show lymphoid tissue. Procedure was performed on [id number]. The lumpectomy revealed 2 foci of invasive high-grade ductal carcinoma with focal high-grade DCIS. All margins were negative for in situ or invasive cancer. The closest margin to DCIS was less than 1 mm from the anterior margin. The tumor size was 3.5 cm in greatest dimension and a secondary small focus of tumor measured 0.5 cm. She completed adjuvant chemotherapy with TC 4. She is presently undergoing radiation therapy. Ultrasound of the right breast was performed on [id number]. This was felt to be benign BIRADS 2. At this time a mammogram is not going to be performed as she is presently receiving radiation therapy. She had 13 more rad iation treatments to go. The patient is not complaining of any lumps masses or nodules for which she is concerned. Caffiene: occasional nicotine: none BCP: 25 years, has not used them for many years hormones: none chocolate: daily Family History: negative for cancer Hormonal History: menarche: 11 , breast fed; no, age at first :23 menopause: 49 BCP: 20 years Surgical History: right knee right ankle toe amputation Medical History: uses a cane to walk diabetic osteoarthritis vertigo Social History: smoke: none alcohol: none drugs: none - Constitutional Constitutional: Denies chills, Denies fever - EENT Comment: eye surgery, not known what for; gets shots in eye only in the left eye Ears: bilateral: decreased hearing (uses hearing aids) Ears, nose, mouth and throat: Reports headache, Denies sore throat - Breasts Breasts: bilateral: as per HPI - Cardiovascular Cardiovascular: Denies chest pain, Denies shortness of breath - Respiratory Respiratory: Denies cough - Gastrointestinal Comment: GERD - Genitourinary (Female) Genitourinary: Denies dysuria, Denies hematuria - Menstruation Menstruation: Reports postmenopausal - Musculoskeletal Comment: osteoarthritis - Integumentary Integumentary: Reports pruritus - Neurological Comment: poor balance - Psychiatric Psychiatric: Denies anxiety, Denies depression - Endocrine Comment: diabetic - Hematologic/Lymphatic Comment: uses aspirin - Allergic/Immunologic Allergic/Immunologic: Reports as per HPI, Reports seasonal allergies Objective - Vital Signs Vital signs: Vital Signs Temp 97.6 F 09/21/22 12:56 Pulse 66 09/21/22 12:56 Resp 12 09/21/22 12:56 BP 136/67 09/21/22 12:56 Pulse Ox 98 09/21/22 12:56 FiO2 Intake & Output 09/20/22 09/21/22 09/21/22 18:59 06:59 18:59 Weight 63.503 kg - Constitutional General appearance: Present: cooperative - EENT Eyes: Present: EOMI - Neck Neck: Present: normal ROM - Respiratory Respiratory: bilateral: CTA - Cardiovascular Heart sounds: normal: S1, S2 - Gastrointestinal General gastrointestinal: Present: soft - Integumentary Integumentary Comment(s): 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 Integumentary: Present: normal turgor - Psychiatric Psychiatric: Present: A&O x's 3, appropriate affect, intact judgment & insight - Additional findings Additional findings: Breast Exam: BRA: 44D inspection: Bilateral grade 3 ptosis Palpation: Right breast: well healed scar right breast , no dominant masses or nodules of concern on multi-positional exam Right axilla: No adenopathy of concern Left breast: Multi-positional exam no dominant masses or nodules of concern Left axilla: No adenopathy of concern Assessment and Plan Assessment: Impression: Patient is status was diagnosed with stage IIB right breast invasive ductal carcinoma she is status post lumpectomy and attempted sentinel lymph node biopsy 0n 6-29-22; she completed chemotherapy and is presently undergoing radiation therapy. Plan: Ultrasound from 200032 benign BIRADS 2 of the right breast Complete radiation therapy Continue follow-up medical oncology At this time no clinical evidence of any recurrent cancer Repeat left breast mammogram January 2023 and right breast mammogram 6 months after finishing radiation therapy, patient will follow up after left breast mammogram in January CC:Dr. Holly
== END | disposition home or self-care (01) ==
LOC: RADUSWWP 11:58
PROVIDERS: ATTEND Surgery
DX: C50.911 Malignant neoplasm of unspecified site of right female breast (principal); E11.9 Type 2 diabetes mellitus without complications; Z78.0 Asymptomatic menopausal state; Z92.3 Personal history of irradiation

== ENCOUNTER 2022-12-13 17:12 | Emergency (ER) | payer MEDICARE ==
[2022-12-13 17:18] VITALS: RESP 18; TEMP 97.5
[2022-12-13] MEDS ORDERED: SODIUM CHLORIDE 0.9% 1,000 ML IV STA (17:24)
--- NOTE | 2022-12-13 17:55 | ED ---
General Adult HPI - General Chief complaint: Nausea/Vomiting/Diarrhea Stated complaint: vomiting Time Seen by Provider: 12/13/22 17:19 Source: patient Mode of arrival: wheelchair Limitations: no limitations - History of Present Illness Initial comments: Dictation was produced using [employer] dictation software. please excuse any grammatical, word or spelling errors. Chief Complaint: 82-year-old female presents emergency Department with nasal congestion and vomiting History of Present Illness: Patient is a 82-year-old female she states that this morning she woke up. She felt severe nasal congestion with rhinorrhea. Shortly after she had a bout of bilious vomiting. States that she felt very symptomatic for couple hours. Since being in the ER she's felt fine. Denies any fever or constitutional symptoms. She states she did feel febrile at home. She states she was exposed to her friend's had similar symptoms. Denies any abdominal pain. The ROS documented in this emergency department record has been reviewed and confirmed by me. Those systems with pertinent positive or negative responses have been documented in the HPI. All other systems are other negative and/or noncontributory. PHYSICAL EXAM: General Impression: Alert and oriented x3, not in acute distress HEENT: Normocephalic atraumatic, extra-ocular movements intact, pupils equal and reactive to light bilaterally, mucous membranes moist. Cardiovascular: Heart regular rate and rhythm Chest: Able to complete full sentences, no retractions, no tachypnea Abdomen: abdomen soft, non-tender, non-distended, no organomegaly Musculoskeletal: Pulses present and equal in all extremities, no peripheral edema Motor: no focal deficits noted Neurological: CN II-XII grossly intact, no focal motor or sensory deficits noted Skin: Intact with no visualized rashes Psych: Normal affect and mood ED course: 82-year-old female presents emergency department for nasal congestion and vomiting. Vital signs upon arrival are within acceptable limits. Patient i s well-appearing at bedside. Abdominal examination is benign. Physical examination is benign. Nursing notes and chart review was performed Was pt. sent in by a medical professional or institution (, PA, VISITOR SERVICES COORDINATOR, urgent care, hospital, or intermediate...) When possible be specific @ -No Did you speak to anyone other than the patient for history (EMS, parent, family, police, friend...)? What history was obtained from this source @ -Son at the bedside Did you review nursing and triage notes (agree or disagree)? Why? @ -I reviewed and agree with nursing and triage notes Were old charts reviewed (outside hosp., previous admission, EMS record, old EKG, old radiological studies, urgent care reports/EKG's, intermediate records)? Report findings @ -No old charts were reviewed Differential Diagnosis (chest pain, altered mental status, abdominal pain women, abdominal pain men, vaginal bleeding, musculoskeletal, weakness, fever, dyspnea, syncope, headache, dizziness, GI bleed, back pain, seizure, CVA, palpatations, mental health)? @ -Gastroenteritis, bowel obstruction, surgical abdomen, vertigo acute appendicitis EKG interpreted by me (3pts min.). @ -None done X-rays interpreted by me (1pt min.). @ -None done CT interpreted by me (1pt min.). @ -None done U/S interpreted by me (1pt. min.). @ -None done What testing was considered but not performed or refused? (CT, X-rays, U/S, labs)? Why? @ -Imaging studies were considered however patient does not have any active abdominal pain What meds were considered but not given or refused? Why? @ -See above Did you discuss the management of the patient with other professionals (professionals i.e. , PA, VISITOR SERVICES COORDINATOR, lab, RT, psych nurse, social work nurse, materials analyst, teacher, commanding officer garage, case advocate)? Give summary @ -no Was smoking cessation discussed for >3mins.? @ -No Was critical care preformed (if so, how long)? @ -No Were there social determinants of health that impacted care today? How? (Homelessness, low income, unemployed, alcoholism, drug addiction, transportation, low edu. Level, literacy, decrease access to med. care, longterm, rehab)? @ -No Was there de-escalation of care discussed even if they declined (Discuss DNR or withdrawal of care, Hospice)? DNR status @ -No What co-morbidities impacted this encounter? (DM, HTN, Smoking, COPD, CAD, Cancer, CVA, ARF, Chemo, Hep., AIDS, mental health diagnosis, sleep apnea, morbid obesity)? @ -None Was patient admitted / discharged? Hospital course, mention meds given and route, prescriptions, significant lab abnormalities, going to OR and other pertinent info. @ -82-year-old female presents with nasal congestion and episodes of emesis. Patient denies abdominal pain. Abdominal exam is unremarkable. Physical examination is negative. Patient's nausea improved with antiemetics. Concern that patient suffering from viral gastroenteritis/viral syndrome. Laboratory evaluation obtained. CBC and metabolic panel within acceptable limits. Viral PCR testing is negative. Patient is agreeable to discharge with close outpatient follow-up with primary care doctor. Patient was given IV fluids. S tarted pack for antiemetics were given to the patient at the bedside Undiagnosed new problem with uncertain prognosis? @ -No Drug Therapy requiring intensive monitoring for toxicity (Heparin, Nitro, Insulin, Cardizem)? @ -No Were any procedures done? @ -No Diagnosis/symptom? Acute, or Chronic, or Acute on Chronic? Uncomplicated (without systemic symptoms) or Complicated (systemic symptoms)? @ -1. Acute viral syndrome Side effects of treatment? @ -No Exacerbation, Progression, or Severe Exacerbation? @ -No Poses a threat to life or bodily function? How? (Chest pain, [place], [place], pneumonia, PE, COPD, DKA, ARF, appy, cholecystitis, CVA, Diverticulitis, Homicidal, Suicidal, threat to staff... and all critical care pts) @ -No - Related Data Home Medications Medication Instructions Recorded Confirmed Losartan [Cozaar] 25 mg PO DAILY 04/03/22 12/13/22 Furosemide [Lasix] 40 mg PO DAILY 08/09/22 12/13/22 Sertraline [Zoloft] 50 mg PO DAILY 08/09/22 12/13/22 Albuterol Sulfate [Albuterol 2 puff PO RT-Q6H PRN 12/13/22 12/13/22 Sulfate Hfa] Aspirin EC [Ecotrin Low Dose] 81 mg PO HS 12/13/22 12/13/22 Atorvastatin [Lipitor] 40 mg PO HS 12/13/22 12/13/22 Mirabegron [Myrbetriq] 50 mg PO DAILY 12/13/22 12/13/22 Multivit-Min/Iron/Folic/Lutein 1 tab PO HS 12/13/22 12/13/22 [Centrum Silver Women Tablet] Pantoprazole [Protonix] 40 mg PO DAILY 12/13/22 12/13/22 Pioglitazone [Actos] 15 mg PO DAILY 12/13/22 12/13/22 Trospium Chloride 20 mg PO DAILY 12/13/22 12/13/22 sitaGLIPtin [Januvia] 25 mg PO DAILY 12/13/22 12/13/22 Allergies Allergy/AdvReac Type Severity Reaction Status Date / Time morphine AdvReac Hallucinati Verified 12/13/22 17:18 ons Review of Systems ROS Statement: Those systems with pertinent positive or pertinent negative responses have been documented in the HPI. ROS Other: All systems not noted in ROS Statement are negative. Past Medical History Past Medical History: Cancer, Diabetes Mellitus, Osteoarthritis (OA) Additional Past Medical History / Comment(s): vertigo. right breast CA History of Any Multi-Drug Resistant Organisms: None Reported Past Surgical History: Breast Surgery, Cholecystectomy, Orthopedic Surgery Additional Past Surgical History / Comment(s): eye surgery. Past Anesthesia/Blood Transfusion Reactions: No Reported Reaction Past Psychological History: No Psychological Hx Reported Smoking Status: Never smoker Past Alcohol Use History: Occasional Past Drug Use History: None Reported General Exam Limitations: no limitations Course Vital Signs 12/13/22 17:12 Temperature 97.5 F L Pulse Rate 85 Respiratory 18 Rate Blood Pressure 130/75 O2 Sat by Pulse 99 Oximetry Medical Decision Making - Lab Data Result diagrams: 12/13/22 17:31 12/13/22 17:31 Lab Results 12/13/22 12/13/22 12/13/22 Range/Units 17:31 17:31 17:31 WBC 9.1 (3.8-10.6) k/uL RBC 3.63 L (3.80-5.40) m/uL Hgb 11.5 (11.4-16.0) gm/dL Hct 35.0 (34.0-46.0) % MCV 96.4 (80.0-100.0) fL MCH 31.6 (25.0-35.0) pg MCHC 32.8 (31.0-37.0) g/dL RDW 13.0 (11.5-15.5) % Plt Count 205 (150-450) k/uL MPV 8.1 Neutrophils % 90 % Lymphocytes % 5 % Monocytes % 2 % Eosinophils % 1 % Basophils % 0 % Neutrophils # 8.2 H (1.3-7.7) k/uL Lymphocytes # 0.5 L (1.0-4.8) k/uL Monocytes # 0.2 (0-1.0) k/uL Eosinophils # 0.1 (0-0.7) k/uL Basophils # 0.0 (0-0.2) k/uL Sodium 141 (137-145) mmol/L Potassium 4.6 (3.5-5.1) mmol/L Chloride 105 (98-107) mmol/L Carbon Dioxide 22 (22-30) mmol/L Anion Gap 14 mmol/L BUN 53 H (7-17) mg/dL Creatinine 1.95 H (0.52-1.04) mg/dL Est GFR (CKD-EPI)AfAm 27 (>60 ml/min/1.73 sqM) Est GFR (CKD-EPI)NonAf 23 (>60 ml/min/1.73 sqM) Glucose 130 H (74-99) mg/dL Calcium 9.4 (8.4-10.2) mg/dL Total Bilirubin 0.6 (0.2-1.3) mg/dL AST 29 (14-36) U/L ALT 20 (4-34) U/L Alkaline Phosphatase 110 (38-126) U/L Total Protein 7.2 (6.3-8.2) g/dL Albumin 4.3 (3.5-5.0) g/dL Influenza Type A (PCR) Not Detected (Not Detectd) Influenza Type B (PCR) Not Detected (Not Detectd) RSV (PCR) Not Detected (Not Detectd) SARS-CoV-2 (PCR) Not Detected (Not Detectd) Disposition Clinical Impression: Viral syndrome Disposition: HOME SELF-CARE Condition: Good Instructions (If sedation given, give patient instructions): Acute Nausea and Vomiting (ED) Is patient prescribed a controlled substance at d/c from ED?: No Referrals: None,Stated [REFERRING] - 1-2 days Time of Disposition: 19:05
[2022-12-13 18:02] LABS: Basophils % (A) 0 %; Eosinophils # (A) 0.1 k/uL (0-0.7); Eosinophils % (A) 1 %; HGB 11.5 gm/dL (11.4-16.0); Lymphocytes # (A) 0.5 k/uL (1.0-4.8); Lymphocytes % (A) 5 %; MCH 31.6 pg (25.0-35.0); MCHC 32.8 g/dL (31.0-37.0); MCV 96.4 fL (80.0-100.0); Mean Platelet Volume 8.1; Monocytes # (A) 0.2 k/uL (0-1.0); Monocytes % (A) 2 %; Neutrophils # (A) 8.2 k/uL (1.3-7.7); Neutrophils % (A) 90 %; Platelet Count 205 k/uL (150-450); RBC 3.63 m/uL (3.80-5.40); WBC 9.1 k/uL (3.8-10.6)
[2022-12-13 18:14] LABS: Albumin 4.3 g/dL (3.5-5.0); Calcium 9.4 mg/dL (8.4-10.2); Potassium 4.6 mmol/L (3.5-5.1); Total Bilirubin 0.6 mg/dL (0.2-1.3); Total Protein 7.2 g/dL (6.3-8.2)
[2022-12-13] MEDS ORDERED: ONDANSETRON 4 MG/2 ML VIAL IVP STA (19:03)
[2022-12-13] MEDS ORDERED: ONDANSETRON 4 MG ODT STARTER PACK 2 TAB BTL PO STA (19:05)
[2022-12-13 19:24] VITALS: BP 138/72; PULSE 80
== END 2022-12-13 19:23 | disposition home or self-care (01) ==
LOC: EC 17:12
DX: B34.9 Viral infection, unspecified (principal); E11.9 Type 2 diabetes mellitus without complications; M19.90 Unspecified osteoarthritis, unspecified site; Z79.1 Long term (current) use of non-steroidal anti-inflammatories (NSAID); Z79.82 Long term (current) use of aspirin; Z79.84 Long term (current) use of oral hypoglycemic drugs; Z88.5 Allergy status to narcotic agent; Z20.822 Contact with and (suspected) exposure to COVID-19
CPT/HCPCS: 99285; 36415; 80053; 85025; 87636; 99284; 96374; 96361; J2405; S0119

== ENCOUNTER → 2023-01-22 | Outpatient (CLI) | payer MEDICARE ==
--- NOTE | 2023-01-22 12:13 | MM ---
Reason for Exam: Clinical finding. Last screening mammogram was performed 12 month(s) ago. Patient History: Menarche at age 12. First Full-Term at age 22. Hysterectomy at age 63. Postmenopausal. Breast cancer, right, age 81. 04/05/2022, Lumpectomy on the Right side. 04/05/2022, Malignant US breast localization RT on the right side. 04/05/2022, Malignant US breast surgical speciment RT on the right side. 1990, Benign Excisional Biopsy on the left side. 1989, Benign Excisional Biopsy on the left side. 02/06/2022, Malignant Core Biopsy on the right side. Radiation Therapy, right. Prior Study Comparison: 09/22/2014 Bilateral Screening Mammogram, [facility]. 02/15/2016 Bilateral Screening Mammogram, [facility]. 02/19/2017 Bilateral Screening Mammogram, [facility]. 03/26/2018 Bilateral Screening Mammogram, [facility]. 04/24/2019 Bilateral Screening Mammogram, [facility]. 05/21/2020 Bilateral Screening Mammogram, [facility]. 01/09/2022 Bilateral Diagnostic Mammogram, [facility]. 01/09/2022 Right Diagnostic Ultrasound, [facility]. 02/06/2022 Right Diagnostic Mammogram, [facility]. 04/05/2022 Right MG diagnostic mammo RT wo CAD, [facility]. Tissue Density: Left: There are scattered fibroglandular densities. Findings: Analyzed By CAD. Stable benign calcifications. Postoperative distortion. No mass seen. No evidence for skin thickening. Overall Assessment: Benign, BI-RAD 2 Management: Screening Mammogram of both breasts in 1 year. A clinical breast exam by your physician is recommended on an annual basis and results should be correlated with mammographic findings. This exam should not preclude additional follow-up of suspicious palpable abnormalities. Results were given to the patient verbally at the time of exam. Electronically signed and approved by: Victoriano Rojas M.D. Radiologis
== END | disposition home or self-care (01) ==
LOC: RADMAMWWP 10:51
PROVIDERS: ATTEND Surgery
DX: R92.1 Mammographic calcification found on diagnostic imaging of breast (principal); Z85.3 Personal history of malignant neoplasm of breast; Z78.0 Asymptomatic menopausal state
CPT/HCPCS: 77065; G0279; 77061

== ENCOUNTER → 2023-01-26 | Outpatient (CLI) | payer MEDICARE ==
[2023-01-26 13:27] VITALS: BP 144/70; PULSE 68; RESP 17; TEMP 97.6
--- NOTE | 2023-01-26 13:52 | P.PN ---
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 The sentinel node biopsy did not show lymphoid tissue. Procedure was performed on . The lumpectomy revealed 2 foci of invasive high-grade ductal carcinoma with focal high-grade DCIS. All margins were negative for in situ or invasive cancer. The closest margin to DCIS was less than 1 mm from the anterior margin. The tumor size was 3.5 cm in greatest dimension and a secondary small focus of tumor measured 0.5 cm. She completed adjuvant chemotherapy with TC 4. She is presently undergoing radiation therapy. Ultrasound of the right breast was performed on [id number]. This was felt to be benign BIRADS 2. She underwent a left breast diagnostic mammogram and [id number] this was benign BIRADS 2 She has not had any further imaging of the right breast since [id number] She is not complaining of any new lumps, masses,or nodules of concern in either breast. Note from medical oncology [id number] reviewed note radiation oncology 11-08-22 reviewed; completed radiation on 10-13-22 Caffiene: occasional nicotine: none BCP: 25 years, has not used them for many years hormones: none chocolate: daily Family History: negative for cancer Hormonal History: menarche: 11 , breast fed; no, age at first :23 menopause: 49 BCP: 20 years Surgical History: right knee right ankle toe amputation Medical History: uses a cane to walk diabetic osteoarthritis vertigo Social History: smoke: none alcohol: none drugs: none - Constitutional Constitutional: Denies chills, Denies fever - EENT Comment: eye surgery, not known what for; gets shots in eye only in the left eye Ears: bilateral: decreased hearing (uses hearing aids) Ears, nose, mouth and throat: Reports headache, Denies sore throat - Breasts Breasts: bilateral: as per HPI - Cardiovascular Cardiovascular: Denies chest pain, Denies shortness of breath - Respiratory Respiratory: Denies cough - Gastrointestinal Comment: GERD - Genitourinary (Female) Genitourinary: Denies dysuria, Denies hematuria - Menstruation Menstruation: Reports postmenopausal - Musculoskeletal Comment: osteoarthritis - Integumentary Integumentary: Reports pruritus - Neurological Comment: poor balance - Psychiatric Psychiatric: Denies anxiety, Denies depression - Endocrine Comment: diabetic - Hematologic/Lymphatic Comment: uses aspirin - Allergic/Immunologic Allergic/Immunologic: Reports as per HPI, Reports seasonal allergies Objective - Vital Signs Vital signs: Vital Signs Temp 97.6 F 01/26/23 13:24 Pulse 68 01/26/23 13:24 Resp 17 01/26/23 13:24 BP 144/70 01/26/23 13:24 Pulse Ox 98 01/26/23 13:24 FiO2 Intake & Output 01/25/23 01/26/23 01/26/23 18:59 06:59 18:59 Weight 59.421 kg - Constitutional General appearance: Present: cooperative - EENT Eyes: Present: EOMI ENT: Present: hearing grossly normal - Neck Neck: Present: normal ROM - Respiratory Respiratory: bilateral: CTA - Cardiovascular Rhythm: regular Heart sounds: normal: S1, S2 - Gastrointestinal General gastrointestinal: Present: soft - Integumentary Integumentary: Present: normal turgor - Musculoskeletal Musculoskeletal: Present: gait normal - Psychiatric Psychiatric: Present: A&O x's 3, appropriate affect, intact judgment & insight - Additional findings Additional findings: Breast Exam: BRA: 44D inspection: Bilateral grade 3 ptosis Palpation: Right breast: well healed scar right breast , no dominant masses or nodules of concern on multi-positional exam Right axilla: No adenopathy of concern Left breast:no dominant masses or nodules of concern Left axilla: No adenopathy of concern Assessment and Plan Assessment: Impression: Patient was diagnosed with stage IIB right breast invasive ductal carcinoma she is status post lumpectomy and attempted sentinel lymph node biopsy 0n 04-05-22; she completed chemotherapy and completed radiation therapy on 10-13-22 Plan: Ultrasound from [id number] benign BIRADS 2 of the right breast right breast mammogram the call for results Continue follow-up medical oncology At this time no clinical evidence of any recurrent cancer follow up in 6 months CC:Dr. Holly
== END ==
LOC: WWCWWP 12:37
PROVIDERS: ATTEND Surgery
DX: C50.911 Malignant neoplasm of unspecified site of right female breast (principal); Z85.3 Personal history of malignant neoplasm of breast; E11.9 Type 2 diabetes mellitus without complications; M19.90 Unspecified osteoarthritis, unspecified site; Z51.0 Encounter for antineoplastic radiation therapy; Z92.3 Personal history of irradiation; R42 Dizziness and giddiness; Z88.5 Allergy status to narcotic agent

== ENCOUNTER → 2023-02-19 | Outpatient (CLI) | payer MEDICARE ==
--- NOTE | 2023-02-19 07:29 | MM ---
Reason for Exam: Hx of cancer, neoadjuvant chemotherapy. Last mammogram was performed 1 year(s) and 1 month(s) ago. Patient History: Menarche at age 12. First Full-Term at age 22. Hysterectomy at age 63. Postmenopausal. Breast cancer, right, age 81. Previous chest radiation therapy. Previous chemotherapy. 04/05/2022, Lumpectomy on the Right side. 04/05/2022, Malignant US breast localization RT on the right side. 04/05/2022, Malignant US breast surgical speciment RT on the right side. 1990, Benign Excisional Biopsy on the left side. 1989, Benign Excisional Biopsy on the left side. 02/06/2022, Malignant Core Biopsy on the right side. Radiation Therapy, right. Prior Study Comparison: 02/06/2022 Right Diagnostic Mammogram, [facility]. 04/05/2022 Right MG diagnostic mammo RT wo CAD, [facility]. 01/22/2023 Left MG 3D diag mammo w/cad LT, [facility]. Tissue Density: Right: There are scattered fibroglandular densities. Findings: Analyzed By CAD. Postbiopsy clips are present within the right breast. There are scattered benign-appearing vascular. Some breast distortion postsurgery is evident. No suspicious groups of microcalcifications, spiculated or lobular masses, architectural distortion or other secondary signs of malignancy are mammographically apparent. Overall Assessment: Benign, BI-RAD 2 Management: Screening Mammogram of both breasts in 11 months. A negative mammogram report should not preclude additional follow up of suspicious palpable abnormalities. Patient should continue monthly self breast exam. A clinical breast exam by your physician is recommended on an annual basis and results should be correlated with mammographic findings. Electronically signed and approved by: Augie Farias D.O. Radiologis
== END | disposition home or self-care (01) ==
LOC: RADMAMWWP 06:53
PROVIDERS: ATTEND Surgery
DX: C50.911 Malignant neoplasm of unspecified site of right female breast (principal); R92.2 Inconclusive mammogram; Z78.0 Asymptomatic menopausal state; Z85.3 Personal history of malignant neoplasm of breast
CPT/HCPCS: 77065; G0279; 77061

== ENCOUNTER 2023-03-05 15:57 | Emergency (ER) | payer MEDICARE ==
[2023-03-05 16:04] VITALS: TEMP 97.8
[2023-03-05] MEDS ORDERED: SODIUM CHLORIDE 0.9% 1,000 ML IV STA (16:42)
[2023-03-05] MEDS ORDERED: ONDANSETRON 4 MG/2 ML VIAL IVP STA (16:46)
[2023-03-05 17:29] LABS: Basophils % (A) 0 %; Eosinophils % (A) 0 %; HCT 32.9 % (34.0-46.0); HGB 10.9 gm/dL (11.4-16.0); Lymphocytes # (A) 0.7 k/uL (1.0-4.8); Lymphocytes % (A) 9 %; MCH 32.2 pg (25.0-35.0); MCHC 33.1 g/dL (31.0-37.0); MCV 97.1 fL (80.0-100.0); Mean Platelet Volume 8.6; Monocytes # (A) 0.2 k/uL (0-1.0); Monocytes % (A) 3 %; Neutrophils # (A) 6.4 k/uL (1.3-7.7); Neutrophils % (A) 86 %; Platelet Count 200 k/uL (150-450); RBC 3.39 m/uL (3.80-5.40); RDW 13.4 % (11.5-15.5); WBC 7.4 k/uL (3.8-10.6)
[2023-03-05 17:45] LABS: Albumin 3.9 g/dL (3.5-5.0); Calcium 9.2 mg/dL (8.4-10.2); Potassium 4.5 mmol/L (3.5-5.1); Total Bilirubin 0.5 mg/dL (0.2-1.3); Total Protein 6.6 g/dL (6.3-8.2)
[2023-03-05 17:49] LABS: INR 0.9 (<1.2); Partial Thromboplastin Time 24.4 sec (22.0-30.0)
--- NOTE | 2023-03-05 17:57 | XR ---
EXAMINATION TYPE: XR chest 2V DATE OF EXAM: 03/05/2023 5:45 PM COMPARISON: Chest radiographs from 08/31/2022. TECHNIQUE: XR chest 2V Frontal and lateral views of the chest. CLINICAL INDICATION:Female, 82 years old with history of difficulty breathing; FINDINGS: Lungs/Pleura: There is no evidence of pleural effusion, focal consolidation, or pneumothorax. Pulmonary vascularity: Unremarkable. Heart/mediastinum: Cardiomediastinal silhouette is unremarkable. Musculoskeletal: No acute osseous pathology. Other findings: None IMPRESSION: No acute cardiopulmonary disease/process.
[2023-03-05] MEDS ORDERED: ACETAMINOPHEN TAB 500 MG TAB PO STA (19:01)
--- NOTE | 2023-03-05 19:01 | ED ---
General Adult HPI - General Chief complaint: Headache Stated complaint: VOMITTING Time Seen by Provider: 03/05/23 16:05 Source: patient Mode of arrival: wheelchair Limitations: no limitations - History of Present Illness Initial comments: 82-year-old female with past medical history of diabetes who presents to the emergency department reporting headache, nasal congestion and nonproductive cough. Symptoms have been going on for the past 2 days. Does admit to nausea with vomiting. No sick contacts with similar symptoms. She denies any fevers. She has not taken any medications at home for her symptoms. She denies any chest pain or shortness of breath. No abdominal pain. No diarrhea or constipation. No other alleviating, precipitating or modifying factors - Related Data Home Medications Medication Instructions Recorded Confirmed Losartan [Cozaar] 25 mg PO DAILY 04/03/22 01/26/23 Furosemide [Lasix] 40 mg PO DAILY 08/09/22 01/26/23 Sertraline [Zoloft] 50 mg PO DAILY 08/09/22 01/26/23 Aspirin EC [Ecotrin Low Dose] 81 mg PO HS 12/13/22 01/26/23 Atorvastatin [Lipitor] 40 mg PO HS 12/13/22 01/26/23 Mirabegron [Myrbetriq] 50 mg PO DAILY 12/13/22 01/26/23 Multivit-Min/Iron/Folic/Lutein 1 tab PO HS 12/13/22 01/26/23 [Centrum Silver Women Tablet] Pioglitazone [Actos] 15 mg PO DAILY 12/13/22 01/26/23 sitaGLIPtin [Januvia] 25 mg PO DAILY 12/13/22 01/26/23 Allergies Allergy/AdvReac Type Severity Reaction Status Date / Time morphine AdvReac Hallucinati Verified 03/05/23 16:04 ons Review of Systems ROS Statement: Those systems with pertinent positive or pertinent negative responses have been documented in the HPI. ROS Other: All systems not noted in ROS Statement are negative. Past Medical History Past Medical History: Cancer, Diabetes Mellitus, Osteoarthritis (OA) Additional Past Medical History / Comment(s): vertigo. right breast CA History of Any Multi-Drug Resistant Organisms: None Reported Past Surgical History: Breast Surgery, Cholecystectomy, Orthopedic Surgery Additional Past Surgical History / Comment(s): eye surgery. Past Anesthesia/Blood Transfusion Reactions: No Reported Reaction Past Psychological History: No Psychological Hx Reported Smoking Status: Never smoker Past Alcohol Use History: Occasional Past Drug Use History: None Reported General Exam Limitations: no limitations General appearance: alert, in no apparent distress Head exam: Present: atraumatic, normocephalic, normal inspection Eye exam: Present: normal appearance, PERRL, EOMI. Absent: scleral icterus, conjunctival injection, periorbital swelling ENT exam: Present: normal exam, mucous membranes moist Neck exam: Present: normal inspection. Absent: tenderness, meningismus, lymphadenopathy Respiratory exam: Present: normal lung sounds bilaterally. Absent: respiratory distress, wheezes, rales, rhonchi, stridor Cardiovascular Exam: Present: regular rate, normal rhythm, normal heart sounds. Absent: systolic murmur, diastolic murmur, rubs, gallop, clicks GI/Abdominal exam: Present: soft, normal bowel sounds. Absent: distended, tenderness, guarding, rebound, rigid Extremities exam: Present: normal inspection, full ROM, normal capillary refill. Absent: tenderness, pedal edema, joint swelling, calf tenderness Back exam: Present: normal inspection Neurological exam: Present: alert, oriented X3, CN II-XII intact Psychiatric exam: Present: normal affect, normal mood Skin exam: Present: warm, dry, intact, normal color. Absent: rash Course Vital Signs 03/05/23 03/05/23 03/05/23 16:01 18:24 21:03 Temperature 97.8 F Pulse Rate 65 68 63 Respiratory 20 18 16 Rate Blood Pressure 153/80 133/65 135/68 O2 Sat by Pulse 92 L 98 95 Oximetry Medical Decision Making - Medical Decision Making Was pt. sent in by a medical professional or institution (, PA, BOILER FITTER, urgent care, hospital, or [facility]...) When possible be specific @ -No Did you speak to anyone other than the patient for history (EMS, parent, family, police, friend...)? What history was obtained from this source @ -I spoke with the patient's son who is at bedside regarding the history Did you review nursing and triage notes (agree or disagree)? Why? @ -I reviewed and agree with nursing and triage notes Were old charts reviewed (outside hosp., previous admission, EMS record, old EKG, old radiological studies, urgent care reports/EKG's, [facility] records)? Report findings @ -No old charts were reviewed Differential Diagnosis (chest pain, altered mental status, abdominal pain women, abdominal pain men, vaginal bleeding, weakness, fever, dyspnea, syncope, headache, dizziness, GI bleed, back pain, seizure, CVA, palpatations, mental health, musculoskeletal)? @ -Differential Fever: Pneumonia, viral URI, endocarditis, myocarditis, pericarditis, otitis, sinusitis, peritonsillar Abscess, retropharyngeal Abscess, epiglottitis, peritonitis, appendicitis, [place] cystitis, diverticulitis, hepatitis, colitis, UTI, PID, TOA, pyelonephritis, prostatitis, epididymitis, meningitis, encephalitis, pulmonary embolism, CVA, thyroid storm, pancreatitis, adrenal crisis, cavernous sinus thrombosis, this is not meant to be an all-inclusive list. EKG interpreted by me (3pts min.). @ -EKG is interpreted by myself and demonstrates a sinus rhythm with a rate of 71. NC interval 181. QRS 83. QTC of 397. No acute ST segment elevations or depressions X-rays interpreted by me (1pt min.). @ -Chest x-ray demonstrates no acute intrathoracic process CT interpreted by me (1pt min.). @ -None done U/S interpreted by me (1pt. min.). @ -None done What testing was considered but not performed or refused? (CT, X-rays, U/S, labs)? Why? @ -None What meds were considered but not given or refused? Why? @ -None Did you discuss the management of the patient with other professionals (professionals i.e. , PA, BOILER [employer]TER, lab, RT, psych nurse, social science instructor, tool marker, teacher, police officer booking, machine adjuster leader case trim)? Give summary @ -No Was smoking cessation discussed for >3mins.? @ -No Was critical care preformed (if so, how long)? @ -No Were there social determinants of health that impacted care today? How? (Homelessness, low income, unemployed, alcoholism, drug addiction, transportation, low edu. Level, literacy, decrease access to med. care, long-term, rehab)? @ -No Was there de-escalation of care discussed even if they declined (Discuss DNR or withdrawal of care, Hospice)? DNR status @ -No What co-morbidities impacted this encounter? (DM, HTN, Smoking, COPD, CAD, Cancer, CVA, ARF, Chemo, Hep., AIDS, mental health diagnosis, sleep apnea, morbid obesity)? @ -None Was patient admitted / discharged? Hospital course, mention meds given and route, prescriptions, significant lab abnormalities, going to OR and other pertinent info. @ -Upon arrival patient is placed into room 28. A thorough history and physical exam is performed. IV access established the patient is given a fluid bolus. Patient also provided with formal grams of Zofran. Laboratory studies are conducted and reviewed. Patient does have chronic kidney disease which is at her baseline. Urinalysis is unremarkable. Chest x-ray demonstrates no acute process. Patient is reevaluated and states that she feels improved at this time. Patient requesting to eat. She is able to hold down some crackers. Patient feels comfortable going home at this time. Instructed that she needs to follow up with her primary care doctor in 1-2 days. Return for any new or worsening symptoms. Patient was agreeable to this plan and she was discharged home in stable condition Undiagnosed new problem with uncertain prognosis? @ -Yes Drug Therapy requiring intensive monitoring for toxicity (Heparin, Nitro, Insulin, Cardizem)? @ -No Were any procedures done? @ -No Diagnosis/symptom? @ -Acute nausea and vomiting, acute subjective fever, acute headache Acute, or Chronic, or Acute on Chronic? @ -Acute Uncomplicated (without systemic symptoms) or Complicated (systemic symptoms)? @ -Complicated Side effects of treatment? @ -No Exacerbation, Progression, or Severe Exacerbation? @ -No Poses a threat to life or bodily function? How? (Chest pain, [place], GA, pneumonia, PE, COPD, DKA, ARF, appy, cholecystitis, CVA, Diverticulitis, Homicidal, Suicidal, threat to staff... and all critical care pts) @ -No - Lab Data Result diagrams: 03/05/23 17:18 03/05/23 17:18 Lab Results 03/05/23 03/05/23 03/05/23 Range/Units 17:10 17:18 17:18 WBC 7.4 (3.8-10.6) k/uL RBC 3.39 L (3.80-5.40) m/uL Hgb 10.9 L (11.4-16.0) gm/dL Hct 32.9 L (34.0-46.0) % MCV 97.1 (80.0-100.0) fL MCH 32.2 (25.0-35.0) pg MCHC 33.1 (31.0-37.0) g/dL RDW 13.4 (11.5-15.5) % Plt Count 200 (150-450) k/uL MPV 8.6 Neutrophils % 86 % Lymphocytes % 9 % Monocytes % 3 % Eosinophils % 0 % Basophils % 0 % Neutrophils # 6.4 (1.3-7.7) k/uL Lymphocytes # 0.7 L (1.0-4.8) k/uL Monocytes # 0.2 (0-1.0) k/uL Eosinophils # 0.0 (0-0.7) k/uL Basophils # 0.0 (0-0.2) k/uL PT 10.0 (9.0-12.0) sec INR 0.9 (<1.2) APTT 24.4 (22.0-30.0) sec D-Dimer 1.56 H (<0.60) mg/L FEU Sodium (137-145) mmol/L Potassium (3.5-5.1) mmol/L Chloride (98-107) mmol/L Carbon Dioxide (22-30) mmol/L Anion Gap mmol/L BUN (7-17) mg/dL Creatinine (0.52-1.04) mg/dL Est GFR (CKD-EPI)AfAm (>60 ml/min/1.73 sqM) Est GFR (CKD-EPI)NonAf (>60 ml/min/1.73 sqM) Glucose (74-99) mg/dL Plasma Lactic Acid Kirill (0.7-2.0) mmol/L Calcium (8.4-10.2) mg/dL Total Bilirubin (0.2-1.3) mg/dL AST (14-36) U/L ALT (4-34) U/L Alkaline Phosphatase (38-126) U/L Troponin I (0.000-0.034) ng/mL Total Protein (6.3-8.2) g/dL Albumin (3.5-5.0) g/dL Urine Color Urine Appearance (Clear) Urine pH (5.0-8.0) Ur Specific [place] (1.001-1.035) Urine Protein (Negative) Urine Glucose (UA) (Negative) Urine Ketones (Negative) Urine Blood (Negative) Urine Nitrite (Negative) Urine Bilirubin (Negative) Urine Urobilinogen (<2.0) mg/dL Ur Leukocyte Esterase (Negative) Urine RBC (0-5) /hpf Urine WBC (0-5) /hpf Urine Mucus (None) /hpf Influenza Type A (PCR) Not Detected (Not Detectd) Influenza Type B (PCR) Not Detected (Not Detectd) RSV (PCR) Not Detected (Not Detectd) SARS-CoV-2 (PCR) Not Detected (Not Detectd) 03/05/23 03/05/23 03/05/23 Range/Units 17:18 17:18 17:18 WBC (3.8-10.6) k/uL RBC (3.80-5.40) m/uL Hgb (11.4-16.0) gm/dL Hct (34.0-46.0) % MCV (80.0-100.0) fL MCH (25.0-35.0) pg MCHC (31.0-37.0) g/dL RDW (11.5-15.5) % Plt Count (150-450) k/uL MPV Neutrophils % % Lymphocytes % % Monocytes % % Eosinophils % % Basophils % % Neutrophils # (1.3-7.7) k/uL Lymphocytes # (1.0-4.8) k/uL Monocytes # (0-1.0) k/uL Eosinophils # (0-0.7) k/uL Basophils # (0-0.2) k/uL PT (9.0-12.0) sec INR (<1.2) APTT (22.0-30.0) sec D-Dimer (<0.60) mg/L FEU Sodium 141 (137-145) mmol/L Potassium 4.5 (3.5-5.1) mmol/L Chloride 105 (98-107) mmol/L Carbon Dioxide 26 (22-30) mmol/L Anion Gap 10 mmol/L BUN 61 H (7-17) mg/dL Creatinine 2.07 H (0.52-1.04) mg/dL Est GFR (CKD-EPI)AfAm 25 (>60 ml/min/1.73 sqM) Est GFR (CKD-EPI)NonAf 22 (>60 ml/min/1.73 sqM) Glucose 142 H (74-99) mg/dL Plasma Lactic Acid Kirill 0.7 (0.7-2.0) mmol/L Calcium 9.2 (8.4-10.2) mg/dL Total Bilirubin 0.5 (0.2-1.3) mg/dL AST 26 (14-36) U/L ALT 18 (4-34) U/L Alkaline Phosphatase 103 (38-126) U/L Troponin I <0.012 (0.000-0.034) ng/mL Total Protein 6.6 (6.3-8.2) g/dL Albumin 3.9 (3.5-5.0) g/dL Urine Color Urine Appearance (Clear) Urine pH (5.0-8.0) Ur Specific [place] (1.001-1.035) Urine Protein (Negative) Urine Glucose (UA) (Negative) Urine Ketones (Negative) Urine Blood (Negative) Urine Nitrite (Negative) Urine Bilirubin (Negative) Urine Urobilinogen (<2.0) mg/dL Ur Leukocyte Esterase (Negative) Urine RBC (0-5) /hpf Urine WBC (0-5) /hpf Urine Mucus (None) /hpf Influenza Type A (PCR) (Not Detectd) Influenza Type B (PCR) (Not Detectd) RSV (PCR) (Not Detectd) SARS-CoV-2 (PCR) (Not Detectd) 03/05/23 Range/Units 19:50 WBC (3.8-10.6) k/uL RBC (3.80-5.40) m/uL Hgb (11.4-16.0) gm/dL Hct (34.0-46.0) % MCV (80.0-100.0) fL MCH (25.0-35.0) pg MCHC (31.0-37.0) g/dL RDW (11.5-15.5) % Plt Count (150-450) k/uL MPV Neutrophils % % Lymphocytes % % Monocytes % % Eosinophils % % Basophils % % Neutrophils # (1.3-7.7) k/uL Lymphocytes # (1.0-4.8) k/uL Monocytes # (0-1.0) k/uL Eosinophils # (0-0.7) k/uL Basophils # (0-0.2) k/uL PT (9.0-12.0) sec INR (<1.2) APTT (22.0-30.0) sec D-Dimer (<0.60) mg/L FEU Sodium (137-145) mmol/L Potassium (3.5-5.1) mmol/L Chloride (98-107) mmol/L Carbon Dioxide (22-30) mmol/L Anion Gap mmol/L BUN (7-17) mg/dL Creatinine (0.52-1.04) mg/dL Est GFR (CKD-EPI)AfAm (>60 ml/min/1.73 sqM) Est GFR (CKD-EPI)NonAf (>60 ml/min/1.73 sqM) Glucose (74-99) mg/dL Plasma Lactic Acid Kirill (0.7-2.0) mmol/L Calcium (8.4-10.2) mg/dL Total Bilirubin (0.2-1.3) mg/dL AST (14-36) U/L ALT (4-34) U/L Alkaline Phosphatase (38-126) U/L Troponin I (0.000-0.034) ng/mL Total Protein (6.3-8.2) g/dL Albumin (3.5-5.0) g/dL Urine Color Light Yellow Urine Appearance Clear (Clear) Urine pH 6.0 (5.0-8.0) Ur Specific [place] 1.013 (1.001-1.035) Urine Protein 1+ H (Negative) Urine Glucose (UA) Negative (Negative) Urine Ketones Trace H (Negative) Urine Blood Negative (Negative) Urine Nitrite Negative (Negative) Urine Bilirubin Negative (Negative) Urine Urobilinogen <2.0 (<2.0) mg/dL Ur Leukocyte Esterase Negative (Negative) Urine RBC 1 (0-5) /hpf Urine WBC <1 (0-5) /hpf Urine Mucus Rare H (None) /hpf Influenza Type A (PCR) (Not Detectd) Influenza Type B (PCR) (Not Detectd) RSV (PCR) (Not Detectd) SARS-CoV-2 (PCR) (Not Detectd) Disposition Clinical Impression: Nausea and vomiting, Dehydration Disposition: HOME SELF-CARE Condition: Stable Instructions (If sedation given, give patient instructions): Acute Nausea and Vomiting (ED) Additional Instructions: Drink plenty of fluids. Follow-up with your primary care doctor and return for any new or worsening symptoms Is patient prescribed a controlled substance at d/c from ED?: No Referrals: Shlomo Valerio MD [Primary Care Provider] - 1-2 days Time of Disposition: 20:59
[2023-03-05 20:37] LABS: Appearance,Urine Clear (Clear); Bilirubin,Urine Negative (Negative); Blood,Urine Negative (Negative); Color,Urine Light Yellow; Glucose,Urine (UA) Negative (Negative); Ketones,Urine Trace (Negative); Leukocyte Esterase,Urine Negative (Negative); Mucus,Urine Rare /hpf; Nitrite,Urine Negative (Negative); Protein,Urine 1+ (Negative); RBC,Urine 1 /hpf (0-5); Specific Gravity,Urine 1.013 (1.001-1.035); Urobilinogen,Urine <2.0 mg/dL (<2.0); WBC,Urine <1 /hpf (0-5)
[2023-03-05 21:20] VITALS: BP 135/68; PULSE 63; RESP 16
== END 2023-03-05 21:03 | disposition home or self-care (01) ==
LOC: EC 15:57
DX: E86.0 Dehydration (principal); R11.2 Nausea with vomiting, unspecified; E11.9 Type 2 diabetes mellitus without complications; M19.90 Unspecified osteoarthritis, unspecified site; Z79.82 Long term (current) use of aspirin; Z79.84 Long term (current) use of oral hypoglycemic drugs; Z79.899 Other long term (current) drug therapy; Z20.822 Contact with and (suspected) exposure to COVID-19; Z88.5 Allergy status to narcotic agent; Z90.49 Acquired absence of other specified parts of digestive tract
CPT/HCPCS: 36415; 93005; 85379; 80053; 83605; 84484; 85025; 85610; 85730; 81001; 87636; 71046; 99284; 96374; 96361; J2405